=== PATIENT | male | born 1965 | race Caucasian/White ===

== ENCOUNTER 2017-07-09 00:01 | Observation (INO) | payer OTHER ==
[2017-07-09] VITALS (10 sets, daily range): BP systolic 117–185; BP diastolic 77–92; PULSE 56–69; TEMP 36.4–37.4; O2SAT 93–97; Ht 172.7 cm; Wt 121.3 kg
[~2017-07-09] VITALS: Ht 172.7 cm; Wt 121.3 kg
[2017-07-09] MEDS ORDERED: NITROGLYCERIN OINT 2% 1GM PACKET EXT ONE (00:15)
[2017-07-09 00:35] LABS: BASO % 0.6 %; BASO ABS # 0.05 K/uL (0-0.2); COMPLETE YES; HEMATOCRIT 48.2 % (42-52); IG% 0.2 %; LYMPH % 28.1 %; LYMPH ABS # 2.35 K/uL (1.2-3.4); MEAN CELL VOLUME 85.9 fL (80-100); MEAN CORPUSCULAR HEMOGLOBIN 30.3 pg (25-34); MEAN CORPUSCULAR HGB CONC 35.3 g/dl (32-36); MONO % 7.4 %; NEUT % 60.7 %; PLATELET COUNT 172 K/uL (130-400); RED BLOOD COUNT 5.61 M/uL (4.7-6.1); WHITE BLOOD COUNT 8.35 K/uL (4.8-10.8)
[2017-07-09 01:00] LABS: ALT/SGPT 32 U/L (12-78); AST/SGOT 22 U/L (15-37); BLOOD UREA NITROGEN 14 mg/dl (7-18); BUN/CREATININE RATIO 13.8 (10-20); CALCIUM 8.8 mg/dl (8.5-10.1); CARBON DIOXIDE 29 mmol/L (21-32); CHLORIDE 105 mmol/L (98-107); CREATININE 0.99 mg/dl (0.60-1.40); GLUCOSE 111 mg/dl (70-99); POTASSIUM 3.7 mmol/L (3.5-5.1); SODIUM 139 mmol/L (136-145)
[2017-07-09 01:05] LABS: ALKALINE PHOSPHATASE 135 U/L (45-117)
[2017-07-09] MEDS ORDERED: NITROGLYCERIN 0.4 MG SL PER TAB CHARGE SL PRN (02:15)
--- NOTE | 2017-07-09 04:25 | History and Physical ---
History & Physical Date & Time of Service: Jul 09, 2017 at 03:45 Chief Complaint: Chest Pain Primary Care Physician: No Doctor, Assigned History of Present Illness Source: patient, hospital records 51 yo Male with PMH of CAD s/p stent, MN, HTN, Dyslipidemia was brought to the ER for chest pain. Pt recently moved from [place] about 5 months ago. He has not been seeing a physician since then. Pt said that last night after worked while watching TV he developed a sharp pain in the left side of his chest, constant, grade 10/10, radiated to his left arm and left side of his neck. he also had diaphoresis and numbness and tingling in her left arm. Pt said that he took a nitro tab that help very little after couple minutes. Pt said that this chest pain was similar to the chest pain that he had 2 yrs ago when he had a heart attack where he had a cardiac cath done and stent placement. Pt said that he walked to his neighbor to drive him to the hospital. He said that the pain got worst and his neighbor call EMS. He received 4 aspirin tabs by the EMS team and nitro. Pt said that he has not been taking his medication because he runs out of them. He does not establish yet with a PCP and a cardiology. He does not remember all his meds except asa 81 mg, plavix 75 mg, lipitor 40mg. he could not recall his 2 BP meds. Currently pt said that he feels much better. Denies any chest pain, palpitation, dizziness and SOB currently. He continues smoking 1 PPD. Past Medical/Surgical History CAD s/p Stent Dyslipidemia HTN Tobacco abuse Social History Smoking Status: Current Every Day Smoker Alcohol Use: socially Drug Use: none Allergies Coded Allergies: No Known Allergies (Unverified , 07/09/17) Home Medications Scheduled Aspirin (Aspirin EC Low Dose), 1 TAB PO DAILY Atorvastatin (Atorvastatin Calcium), 40 MG PO DAILY Clopidogrel Bisulfate (Plavix), 1 TAB PO DAILY Review of Systems Constitutional: No fever, No chills, No weakness Eyes: No worsening of vision, No eye pain ENT: No hearing loss, No sore throat Respiratory: No cough, No sputum, No shortness of breath Cardiovascular: + chest pain, No claudication, No palpitations Abdomen: No pain, No nausea, No vomiting Musculoskeletal: No calf pain Genitourinary - Male: No dysuria, No urinary urgency Neurologic: No weakness, No balance problems Psychiatric: No substance abuse Endocrine: No fatigue Hematologic / Lymphatic: No abnormal bleeding/bruising, No clotting problems Integumentary: No rash, No itch Physical Exam Vital Signs Date Time Temp Pulse Resp B/P (MAP) Pulse Ox O2 Delivery O2 Flow Rate FiO2 07/09/17 03:00 36.7 69 16 185/92 (123) 96 Room Air 07/09/17 02:44 66 121/73 07/09/17 00:16 99 Room Air 07/09/17 00:12 71 07/09/17 00:04 36.8 75 16 165/102 Room Air 07/09/17 00:04 97 Room Air General Appearance: WD/WN, no apparent distress Head: normocephalic, atraumatic Eyes: PERRL, EOMI, sclerae normal ENT: hearing grossly normal Neck: supple, no JVD, trachea midline Respiratory/Chest: normal breath sounds, no respiratory distress, no accessory muscle use Cardiovascular: regular rate, rhythm, no JVD Abdomen/GI: normal bowel sounds, non tender Back: no CVA tenderness Extremities/Musculoskelatal: no calf tenderness, no pedal edema Neurologic/Psych: belt 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 nml as tested, no motor/sensory deficits, alert, oriented x 3 Skin: warm/dry, no rash Diagnostics Laboratory Results Results Past 24 Hours Test 07/09/17 00:25 07/09/17 00:32 Range/Units White Blood Count 8.35 4.8-10.8 K/uL Red Blood Count 5.61 4.7-6.1 M/uL Hemoglobin 17.0 14.0-18.0 g/dL Hematocrit 48.2 42-52 % Mean Corpuscular Volume 85.9 80-100 fL Mean Corpuscular Hemoglobin 30.3 25-34 pg Mean Corpuscular Hemoglobin Concent 35.3 32-36 g/dl Platelet Count 172 130-400 K/uL Mean Platelet Volume 10.0 7.4-10.4 fL Neutrophils (%) (Auto) 60.7 % Lymphocytes (%) (Auto) 28.1 % Monocytes (%) (Auto) 7.4 % Eosinophils (%) (Auto) 3.0 % Basophils (%) (Auto) 0.6 % Neutrophils # (Auto) 5.06 1.4-6.5 K/uL Lymphocytes # (Auto) 2.35 1.2-3.4 K/uL Monocytes # (Auto) 0.62 0.11-0.59 K/uL Eosinophils # (Auto) 0.25 0-0.5 K/uL Basophils # (Auto) 0.05 0-0.2 K/uL RDW Standard Deviation 41.3 36.4-46.3 fL RDW Coefficient of Variation 13.1 11.5-14.5 % Immature Granulocyte % (Auto) 0.2 % Immature Granulocyte # (Auto) 0.02 0.00-0.02 K/uL Sodium Level 139 136-145 mmol/L Potassium Level 3.7 3.5-5.1 mmol/L Chloride Level 105 98-107 mmol/L Carbon Dioxide Level 29 21-32 mmol/L Anion Gap 5.0 3-11 mmol/L Blood Urea Nitrogen 14 7-18 mg/dl Creatinine 0.99 0.60-1.40 mg/dl Est Creatinine Clear Calc Drug Dose 116.9 ml/min Estimated GFR () 103.2 Estimated GFR (Non- 89.1 BUN/Creatinine Ratio 13.8 10-20 Random Glucose 111 70-99 mg/dl Calcium Level 8.8 8.5-10.1 mg/dl Total Bilirubin 0.7 0.2-1 mg/dl Direct Bilirubin 0.2 0-0.2 mg/dl Aspartate Amino Transf (AST/SGOT) 22 15-37 U/L Alanine Aminotransferase (ALT/SGPT) 32 12-78 U/L Alkaline Phosphatase 135 45-117 U/L Troponin I < 0.015 0-0.045 ng/ml Total Protein 7.7 6.4-8.2 gm/dl Albumin 3.6 3.4-5.0 gm/dl Lipase 478 73-393 U/L Bedside Troponin I < 0.030 0-0.045 ng/ml No Infiltrate Impression Assessment and Plan Chest Pain Need to R/O ACS hx of CAD s/p stent, MN about 2 yrs ago, Tobacco abuse 1st set troponin negative EKG showed no ST changes Received 4 aspirin will follow CM, Echo in am repeat EKG in am Will restart asa, plavix and statin he is not sure if he was on BB Will add BB check lipid panel cardiology consult Keep NPO in am Continue monitor in telemetry HTN Will start on BB Continue monitor BP CAD s/p stent Continue plavix/asa/statin Elevated Lipase Denies any abdominal pain Stable Tobacco abuse Counseling on smoking cessation Nicotine patch DVT px on heparin subq CODE STATUS FULL CODE as per my discussion with pt. Level of Care Telemetry Resuscitation Status FULL RESUSCITATION VTE Prophylaxis VTE Risk Assessment Done? Y/N: Yes Risk Level: Moderate Given or contraindicated: Unfractionated heparin SQ
[2017-07-09] MEDS ORDERED: CLOP1TAB5 PO (04:28)
[2017-07-09] MEDS ORDERED: LPT40 PO (04:28)
[2017-07-09] MEDS ORDERED: ASPEC81 PO (04:28)
[2017-07-09] MEDS ORDERED: IV FLUIDS COMPLETED PRN (04:30)
[2017-07-09] MEDS ORDERED: SODIUM CHLORIDE 0.9% 1000ML 1,000 ML IV SCH (04:30)
--- NOTE | 2017-07-09 05:47 | EMERGENCY ROOM VISIT NOTE ---
History First contact with patient: 00:04 Chief Complaint: CARDIAC ASSESSMENT Stated Complaint: CHEST PAIN Nursing Triage Summary: substernal CP jaw pain cardiac history History of Present Illness The patient is a 51 year old male who presents to the Emergency Room with complaints of substernal chest pain that radiates to his jaw and down his left arm with diaphoresis for the past hour that is resolving after taking 2 nitroglycerins and aspirin. Patient has prior heart disease. He has a stent in his left main coronary. This is placed 3 years ago [place]. Patient continues to smoke. Her blood pressure and cholesterol. Patient describes the pain as pressure, ranging in severity was 8 out of 10 but now is 2 out of 10. EMS gave him a second dose of nitroglycerin and aspirin. He took one of his own nitroglycerin. Patient denies dyspnea, leg pain or swelling, recent travel , history of blood clots. Review of Systems See HPI for pertinent positives & negatives. A total of 10 systems reviewed and were otherwise negative. Past Medical/Surgical History Medical Problems: (1) Chest pain Coronary artery disease, hypertension, hyperlipidemia Social History Smoking Status: Current Every Day Smoker Drug Use: none Marital Status: Occupation Status: employed Current/Historical Medications Scheduled Aspirin (Aspirin EC Low Dose), 1 TAB PO DAILY Atorvastatin (Atorvastatin Calcium), 40 MG PO DAILY Clopidogrel Bisulfate (Plavix), 1 TAB PO DAILY Physical Exam Vital Signs Date Time Temp Pulse Resp B/P (MAP) Pulse Ox O2 Delivery O2 Flow Rate FiO2 07/09/17 00:16 99 Room Air 07/09/17 00:12 71 07/09/17 00:04 36.8 75 16 165/102 Room Air 07/09/17 00:04 97 Room Air Physical Exam VITALS: Vitals are noted on the nurse's note and reviewed by myself. Vital signs hypertension GENERAL: Pleasant male, in no acute distress, nondiaphoretic, well-developed well-nourished. SKIN: The skin was without rashes, erythema, edema, or bruising. There is no tenting of the skin. Capillary reflex less than 2 seconds. HEAD: Normocephalic atraumatic. EARS: External auditory canals clear, tympanic membranes pearly up without erythema or effusion bilaterally. EYES: Pupils equal round and reactive to light and accommodation. Conjunctivae without injection, sclerae without icterus. Extraocular movements intact. NOSE: Patent, turbinates without inflammation or discharge. MOUTH: Mucous membranes moist. Pharynx without erythema or exudate. Uvula midline. Airway patent. Tongue does not deviate. NECK: Supple without nuchal rigidity. No lymphadenopathy. No thyromegaly. Cervical spine is nontender. No JVD. HEART: Regular rate and rhythm without murmurs gallops or rubs. Chest nontender to palpation LUNGS: Clear to auscultation bilaterally without wheezes, rales or rhonchi. No dullness to percussion. No retractions or accessory muscle use. ABDOMEN: Positive bowel sounds x 4. Normal tympanic percussion. Soft, nontender, without masses or organomegaly. Quiles sign negative. No guarding or rebound tenderness. MUSCULOSKELETAL: No muscle atrophy, erythema, or edema noted. NEURO: Patient was alert and oriented to person place and time. Normal sensation to light and sharp touch. No focal neurological deficits. Medical Decision & Procedures Laboratory Results 07/09/17 00:25 Red Blood Count 5.61, Mean Corpuscular Volume 85.9, Mean Corpuscular Hemoglobin 30.3, Mean Corpuscular Hemoglobin Concent 35.3, Mean Platelet Volume 10.0, Neutrophils (%) (Auto) 60.7, Lymphocytes (%) (Auto) 28.1, Monocytes (%) (Auto) 7.4, Eosinophils (%) (Auto) 3.0, Basophils (%) (Auto) 0.6, Neutrophils # (Auto) 5.06, Lymphocytes # (Auto) 2.35, Monocytes # (Auto) 0.62, Eosinophils # (Auto) 0.25, Basophils # (Auto) 0.05 07/09/17 00:25 Test 07/09/17 00:25 07/09/17 00:32 White Blood Count 8.35 K/uL (4.8-10.8) Red Blood Count 5.61 M/uL (4.7-6.1) Hemoglobin 17.0 g/dL (14.0-18.0) Hematocrit 48.2 % (42-52) Mean Corpuscular Volume 85.9 fL (80-100) Mean Corpuscular Hemoglobin 30.3 pg (25-34) Mean Corpuscular Hemoglobin Concent 35.3 g/dl (32-36) Platelet Count 172 K/uL (130-400) Mean Platelet Volume 10.0 fL (7.4-10.4) Neutrophils (%) (Auto) 60.7 % Lymphocytes (%) (Auto) 28.1 % Monocytes (%) (Auto) 7.4 % Eosinophils (%) (Auto) 3.0 % Basophils (%) (Auto) 0.6 % Neutrophils # (Auto) 5.06 K/uL (1.4-6.5) Lymphocytes # (Auto) 2.35 K/uL (1.2-3.4) Monocytes # (Auto) 0.62 K/uL (0.11-0.59) Eosinophils # (Auto) 0.25 K/uL (0-0.5) Basophils # (Auto) 0.05 K/uL (0-0.2) RDW Standard Deviation 41.3 fL (36.4-46.3) RDW Coefficient of Variation 13.1 % (11.5-14.5) Immature Granulocyte % (Auto) 0.2 % Immature Granulocyte # (Auto) 0.02 K/uL (0.00-0.02) Anion Gap 5.0 mmol/L (3-11) Est Creatinine Clear Calc Drug Dose 116.9 ml/min Estimated GFR () 103.2 Estimated GFR (Non- 89.1 BUN/Creatinine Ratio 13.8 (10-20) Calcium Level 8.8 mg/dl (8.5-10.1) Total Bilirubin 0.7 mg/dl (0.2-1) Direct Bilirubin 0.2 mg/dl (0-0.2) Aspartate Amino Transf (AST/SGOT) 22 U/L (15-37) Alanine Aminotransferase (ALT/SGPT) 32 U/L (12-78) Alkaline Phosphatase 135 U/L (45-117) Troponin I < 0.015 ng/ml (0-0.045) Total Protein 7.7 gm/dl (6.4-8.2) Albumin 3.6 gm/dl (3.4-5.0) Lipase 478 U/L (73-393) Bedside Troponin I < 0.030 ng/ml (0-0.045) Medications Administered Medications (Trade) Dose Ordered Sig/Judith Route Start Time Stop Time Status Last Admin Dose Admin Nitroglycerin (Nitroglycerin 2% Oint) 1 inch NOW ONCE EXT 07/09/17 00:15 07/09/17 00:16 DC 07/09/17 00:19 1 [facility] ED Course Prior records/ancillary studies reviewed. Triage Nursing notes reviewed. The patient's history was concerning for chest pain. Differential diagnosis: Etiologies such as cardiac ischemia, aortic dissection, pulmonary embolism, pneumonia, pneumothorax, musculoskeletal, infections, pericarditis, myocarditis , esophageal rupture, gastrointestinal, as well as others were entertained. Physical examination: As above. ER treatment provided: Nitropaste On reassessment the patient felt better. Diagnostic interpretation by me: The electrocardiogram was negative for pathologic change. Normal sinus, normal intervals, Q wave in lead 3, no acute ST-T wave changes. Impression normal sinus rhythm interpreted by myself The labs revealed negative troponin. Stable H&H Imaging studies: Chest x-ray with no acute consolidation, pneumothorax or free air per my interpretation Consultation: A consultation was placed with the hospitalist, Dr Self. The case was discussed and diagnostics were reviewed. The patient was evaluated in the ER for further treatment. Exam and history seem concerning for chest pain could be related to his heart disease. He felt much better after the nitroglycerin. He will be evaluated by medicine. First troponin was negative. Normal EKG. Minimally elevated lipase. Exam and history do not seem consistent with pancreatitis. He was pain -free after nitroglycerin paste. By the evaluation outlined above emergent etiologies such as aortic dissection , pulmonary embolism, pneumonia, pneumothorax, infections, pericarditis, myocarditis, gastrointestinal, as well as others were deemed relatively unlikely. The pt informed about the findings as listed above. All questions were answered and pleased with the treatment. case reviewed with my Attending Medical Decision As above Blood Pressure Screening Patient's blood pressure: Elevated blood pressure Blood pressure disposition: Referred to PCP Impression Primary Impression: Precordial chest pain Departure Information Dispostion Still a Patient Condition FAIR Referrals No Doctor, Assigned (PCP) Forms IMPORTANT VISIT INFORMATION Patient Instructions My [facility]
[2017-07-09] MEDS ORDERED: HEPARIN SOD 5000 UNIT/0.5 ML CARP SQ SCH ×2 (06:00)
--- NOTE | 2017-07-09 06:45 | DIAGNOSTIC IMAGING REPORT ---
CHEST ONE VIEW PORTABLE CLINICAL HISTORY: CHEST PAIN pain COMPARISON STUDY: No previous studies for comparison. FINDINGS: The bones soft tissues and hemidiaphragms are normal. The cardiomediastinal silhouette is normal. The lungs are clear. The pulmonary vasculature is normal. IMPRESSION: Negative chest. The above report was generated using voice recognition software. It may contain grammatical, syntax or spelling errors. Electronically signed by: Sam Benz M.D. 07/09/2017 6:44 AM Dictated Date/Time: 07/09/2017 6:44 AM
[2017-07-09] MEDS ORDERED: HydrALAZINE HCL 20 MG/ML VIAL IV. PRN (07:00)
[2017-07-09 07:01] LABS: INR 1.1 (0.9-1.1); PROTHROMBIN TIME (PATIENT) 11.3 SECONDS (9.0-12.0)
[2017-07-09 07:16] LABS: CHOLESTEROL 170 mg/dl (0-200); CHOLESTEROL/HDL RATIO 3.5; HDL CHOLESTEROL 49 mg/dl; LDL CHOLESTEROL CALCULATED 100 mg/dl; TRIGLYCERIDES 107 mg/dl (0-150); VERY LOW DENSITY LIPOPROT CALC 21 mg/dl
[2017-07-09] MEDS ORDERED: ATROPINE SULFATE 0.1 MG/ML 5ML SYR ONE (08:19)
[2017-07-09] MEDS ORDERED: METOPROLOL TARTRATE 1 MG/ML VIAL ONE (08:19)
[2017-07-09] MEDS ORDERED: DOBUTamine HCL 12.5 MG/ML 20 ML VIAL ONE (08:19)
[2017-07-09] MEDS ORDERED: METOPROLOL TARTRATE 25 MG TAB PO SCH (09:00)
[2017-07-09] MEDS ORDERED: PERFLUTREN LIPID MICROSPHERE (DEFINITY) IV ONE (09:20)
--- NOTE | 2017-07-09 09:57 | DOBUTAMINE ECHO ---
*NOTICE TO RECEIVING DEMOCRAT AGENCY This information is strictly Confidential and protected under [place] law. [place] law prohibits you from making any further disclosure of this information unless further disclosure is expressly permitted by the written consent of the person to whom it pertains or is authorized by law. A general authorization for the release of medical or other information is not sufficient for this purpose. Hospital accepts no responsibility if the information is made available to any other person, INCLUDING THE PATIENT. Interpretation Summary * Name: JA JURADO Study Date: 07/09/2017 07:45 AM BP: 130/83 mmHg * Patient Location: [facility]\S\N287\S\2 HR: 63 * : 1965 (M/d/yyyy) Gender: Male Height: 68 in * Age: 51 yrs Ethnicity: CA Weight: 268 lb * Ordering Physician: Theo Self * Referring Physician: Self, Referred * Performed By: Delisa Campbell RCS * * Reason For Study: CHEST PAIN * BSA: 2.3 m2 * -- Conclusions -- * Nonischemic dobutamine stress echocardiogram. * No arrhythmias. * Normal HR and BP response to dobutamine infusion. * Chest pain was reproduced when probe was placed in his 5th intercostal space. * At rest, normal LV chamber size with moderate concentric LVH. * Normal LV systolic function, EF 55-60%. * No segmental left ventricular wall motion abnormalities are noted. * Grade II diastolic dysfunction. * No significant valvular pathology. Procedure Details * DOBUTAMINE ECHO, CPT#[id number] * ECHO COLOR FLOW, CPT #[id number] * ECHO DOPPLER, CPT #[id number] * The study was technically difficult with many images being suboptimal in quality. * A contrast injection of Definity was performed to improve assessment of LV function. * Contrast was injected into an intravenous site in the right arm. * One vial of Definity ultrasound contrast was diluted in normal saline to a total volume of 10 ml. A total of '2' ml of solution was administered during imaging. * Lot # [id number] of Definity utilized for procedure. * Expiration date AUG 16. * The attending nurse who injected the contrast agent was ARUN RANDOLPH, [facility], RN. Left Ventricle * The left ventricle is normal in size. * There is moderate concentric left ventricular hypertrophy. * Left ventricular systolic function is normal. * No segmental left ventricular wall motion abnormalities are noted. * Ejection Fraction = 55-60%. * Resting wall motion: Normal. Stress wall motion: Appropriate increase in Left ventricular systolic function and decrease in cavity size. No stress induced segmental wall motion abnormalities. Right Ventricle * The right ventricular cavity size is normal (basal dimension <4.2 cm in right ventricular apical 4-chamber view). * The right ventricular systolic function is normal as assessed by tricuspid annular plane systolic excursion (TAPSE) (normal >1.5 cm). Atria * The left atrial size is normal. * Right atrial size is normal. * No ASD detected; PFO is not assessed. Mitral Valve * The mitral valve is normal in structure and function. Tricuspid Valve * The tricuspid valve is normal in structure and function. Aortic Valve * The aortic valve is not well visualized. * No hemodynamically significant valvular aortic stenosis. * There is no significant aortic regurgitation. Pulmonic Valve * The pulmonary valve is not well seen, but the Doppler examination is normal without significant regurgitation or stenosis. Great Vessels * The aortic root is normal size. Pericardium * There is no pericardial effusion. Stress Parameters * Normal baseline electrocardiogram. * No arrhythmia were noted with stress. * There was no new ST segment depression. * The stress portion of this study was personally supervised by the undersigned interpreting physician. * Rest heart rate was '63' BPM. * Rest blood pressure was '130/83' * Maximum heart rate achieved was 164 bpm. * Maximum heart rate was 95 % of maximum age-predicted heart rate. * Maximum blood pressure was '170/30' * Maximum Dobutamine infusion rate was '40' mcg/kg/min. * A total of 1.0 mg of intravenous Atropine was used to supplement Dobutamine for heart rate response. * Dobutamine infusion was terminated due to achieving target heart rate * A total of 10 mg of IV Metoprolol was administered to reverse Dobutamine-induced tachycardia. Left Ventricular Diastolic Function * Diastolic dysfunction, Grade II (pseudonormalization pattern). MMode 2D Measurements and Calculations IVSd 1.6 cm IVSs 1.6 cm LVIDd 4.5 cm LVIDs 3.6 cm LVPWd 1.3 cm LVPWs 1.3 cm IVS/LVPW 1.2 FS 21.5 % EDV(Teich) 94.8 ml ESV(Teich) 53.3 ml EF(Teich) 43.8 % EDV(cubed) 94.1 ml ESV(cubed) 45.4 ml EF(cubed) 51.7 % % IVS thick 3.7 % % LVPW thick -1.87 % LV mass(C)d 262.8 grams LV mass(C)dI 113.5 grams/m\S\2 LV mass(C)s 188.9 grams LV mass(C)sI 81.6 grams/m\S\2 SV(Teich) 41.5 ml SI(Teich) 17.9 ml/m\S\2 SV(cubed) 48.6 ml SI(cubed) 21.0 ml/m\S\2 Ao root diam 2.9 cm Ao root area 6.6 cm\S\2 LA dimension 2.8 cm LA/Ao 0.99 LVAd ap4 36.0 cm\S\2 LVLd ap4 8.0 cm EDV(MOD-sp4) 131.3 ml EDV(sp4-el) 137.9 ml LVAs ap4 20.7 cm\S\2 LVLs ap4 6.3 cm ESV(MOD-sp4) 56.6 ml ESV(sp4-el) 57.9 ml EF(MOD-sp4) 56.9 % EF(sp4-el) 58.0 % SV(MOD-sp4) 74.6 ml SI(MOD-sp4) 32.2 ml/m\S\2 SV(sp4-el) 80.0 ml SI(sp4-el) 34.6 ml/m\S\2 Doppler Measurements and Calculations MV E max sudarshan 77.1 cm/sec MV A max sudarsahn 52.9 cm/sec MV E/A 1.5 MV P1/2t max sudarshan 87.3 cm/sec MV P1/2t 115.5 msec MVA(P1/2t) 1.9 cm\S\2 MV dec slope 221.3 cm/sec\S\2 MV dec time 0.34 sec Ao V2 max 129.0 cm/sec Ao max PG 6.7 mmHg Ao max PG (full) 3.4 mmHg LV V1 max PG 3.3 mmHg LV V1 max 90.7 cm/sec PA V2 max 114.0 cm/sec PA max PG 5.2 mmHg TR max sudarshan 241.4 cm/sec
[2017-07-09] MEDS ORDERED: KETOROLAC TROMETHAMINE 10 MG TAB PO STA (10:05)
[2017-07-09] MEDS: CLOPIDOGREL BISULFATE 75 MG TAB PO SCH (10:19)
[2017-07-09] MEDS: ASPIRIN 81 MG ECTAB PO SCH (10:19)
[2017-07-09] MEDS: METOPROLOL TARTRATE 25 MG TAB PO SCH ×2 (10:20→21:00)
[2017-07-09] MEDS: NICOTINE 21 MG/24 HR TDSY TD SCH (10:20)
[2017-07-09] MEDS: ATORVASTATIN 40 MG TAB PO SCH (10:20)
--- NOTE | 2017-07-09 10:45 | CARDIOLOGY CONSULTATION ---
DATE OF CONSULTATION: 07/09/2017 DATE OF CONSULTATION: 07/09/2017 CONSULTATION REQUESTED BY: Dr. Self. REASON FOR CONSULTATION: Chest pain. HISTORY OF PRESENT ILLNESS: Mr. Willis is a very pleasant 51-year-old gentleman who presented to [facility] Emergency Department on 07/08/2017 with a complaint of chest pain. The patient states that yesterday after he got home from work he was tired and sat down on his cough to watch television. Shortly after sitting down, he developed chest discomfort. He states it was a very intense pain ranked at 10/10 on the pain scale and described it as a pressure sensation that started in his left chest that radiated up into his shoulder and down into his left arm. It was associated with some shortness of breath. He states it was exactly similar to the pain he had prior to his previous stent so he became concerned and came into the Emergency Department via EMS. He states this pain was resolved after receiving medications in the ambulance, but he is not quite sure what they were. Upon presentation to the Emergency Department, his EKG and cardiac enzymes were unremarkable. He was admitted to telemetry overnight. He has had no further discomfort overnight. Of note, the patient is new to the area, he recently moved from [place]. He has not established with a primary care physician or a bleach chlorinator because the patient states he does not have insurance and has not really looked into seeing anybody yet. PAST SURGICAL HISTORY: 1. PCI to the maker according to the patient, no records available. 2. Peripheral stents to the right lower extremity. 3. Appendectomy. MEDICAL ILLNESSES: 1. Coronary artery disease. 2. Peripheral arterial disease. 3. Tobacco abuse. 4. Hypertension. 5. Dyslipidemia. 6. Obesity. FAMILY HISTORY: Noncontributory. SOCIAL HISTORY: The patient is a lifelong smoker and continues to smoke anywhere from 4 packs to 1.5 packs of cigarettes a day, drinks occasional alcohol. Denies any recreational drug use. He is . He has 1 grown daughter who is in good health. 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 He does not exercise outside of work. REVIEW OF SYSTEMS: As per HPI, all other review of systems reviewed and negative at this time. ALLERGIES: No known drug allergies. MEDICATIONS AN OUTPATIENT: The patient is not completely sure of his medications. He knows he takes aspirin 81 mg daily, Plavix 75 mg daily, atorvastatin 40 mg daily, but he states he also takes 2 blood pressure medications and he is not sure of the name. REVIEW OF SYSTEMS: As per HPI, all other review of systems reviewed and negative at this time. PHYSICAL EXAMINATION: VITALS: Temperature 36.4, pulse 65, respiratory rate 12, blood pressure 118/77. GENERAL: Awake, alert, oriented x3 in no acute distress. HEAD, EYES, EARS, NOSE, AND THROAT: Normocephalic, atraumatic. Pupils equal, round, and reactive to light and accommodation. Extraocular muscles intact. Anicteric sclerae. Moist mucous membranes. Poor dentition. NECK: No JVD, no bruit. CARDIOVASCULAR: Regular. Positive S4. Normal S1 and S2. No S3. No murmurs or rubs. PULMONARY: Clear to auscultation bilaterally. No rales, rhonchi, or wheezing. ABDOMEN: Bowel sounds x4, soft. No rebound, guarding, tenderness. No organomegaly. EXTREMITIES: No clubbing, cyanosis or edema. Barely palpable pedal pulse on the right, +1 pulse on the left. SKIN: Warm and dry. MUSCULOSKELETAL: Direct palpation of the left 5th intercostal space was able to reproduce his discomfort. TEST RESULTS: LABORATORY STUDIES OF SIGNIFICANCE: Troponin negative x2. A 12-lead EKG performed in the Emergency Department independently reviewed at this time shows normal sinus rhythm at 70 beats per minute, normal axis, normal intervals, no signs of active ischemia, normal study. A dobutamine stress echocardiogram was nonischemic, no arrhythmias, normal heart rate and blood pressure response to dobutamine. Chest pain was reproducible and probe was placed in the fifth intercostal space. IMPRESSION: 1. Musculoskeletal chest pain. 2. Coronary artery disease status post percutaneous coronary intervention to the maker. 3. Peripheral arterial disease. 4. Hypertension. 5. Ongoing tobacco abuse. 6. Obesity. RECOMMENDATIONS: It was my pleasure to see Mr. Willis in consultation today. Given the fact that his stress test was nonischemic, along with the fact the pain is reproducible no further cardiac testing or intervention is necessary at this time. I would recommend NSAIDs and local care for the musculoskeletal chest pain. Otherwise, he should continue his aspirin, Plavix and atorvastatin as well as his outpatient blood pressure medications. Given the fact that the patient does not have insurance I have recommended he be evaluated as an outpatient by [facility] for ongoing care and obviously the patient is welcome to follow with us in the cardiology clinic as well. It is okay to discharge him to home from a cardiac standpoint.
--- NOTE | 2017-07-09 20:25 | Progress Note ---
Medicine Progress Note Date & Time of Visit: Jul 09, 2017 at ~ 13:30 . Subjective No further chest pain. No shortness of breath. No other concerns. . Objective Last 8 Hrs Date Time Temp Pulse Resp B/P (MAP) Pulse Ox O2 Delivery O2 Flow Rate FiO2 07/09/17 20:11 96 Room Air 07/09/17 19:28 36.7 65 18 132/78 (96) 95 Room Air 07/09/17 16:27 37.4 56 20 132/80 (97) 97 Room Air 07/09/17 16:00 96 Room Air 07/09/17 12:41 36.4 68 18 117/81 (93) 95 Physical Exam: General- no distress Neck- no JVD Lungs- clear Heart- regular, no murmur or gallop Abdomen- normal bowel sounds, soft, nontender Extremities- no pretibial edema or calf tenderness Neuro- alert . Laboratory Results: Last 24 Hours Test 07/09/17 00:25 07/09/17 00:32 07/09/17 06:30 07/09/17 12:17 White Blood Count 8.35 K/uL Red Blood Count 5.61 M/uL Hemoglobin 17.0 g/dL Hematocrit 48.2 % Mean Corpuscular Volume 85.9 fL Mean Corpuscular Hemoglobin 30.3 pg Mean Corpuscular Hemoglobin Concent 35.3 g/dl Platelet Count 172 K/uL Mean Platelet Volume 10.0 fL Neutrophils (%) (Auto) 60.7 % Lymphocytes (%) (Auto) 28.1 % Monocytes (%) (Auto) 7.4 % Eosinophils (%) (Auto) 3.0 % Basophils (%) (Auto) 0.6 % Neutrophils # (Auto) 5.06 K/uL Lymphocytes # (Auto) 2.35 K/uL Monocytes # (Auto) 0.62 K/uL Eosinophils # (Auto) 0.25 K/uL Basophils # (Auto) 0.05 K/uL RDW Standard Deviation 41.3 fL RDW Coefficient of Variation 13.1 % Immature Granulocyte % (Auto) 0.2 % Immature Granulocyte # (Auto) 0.02 K/uL Sodium Level 139 mmol/L Potassium Level 3.7 mmol/L Chloride Level 105 mmol/L Carbon Dioxide Level 29 mmol/L Anion Gap 5.0 mmol/L Blood Urea Nitrogen 14 mg/dl Creatinine 0.99 mg/dl Est Creatinine Clear Calc Drug Dose 116.9 ml/min Estimated GFR () 103.2 Estimated GFR (Non- 89.1 BUN/Creatinine Ratio 13.8 Random Glucose 111 mg/dl Calcium Level 8.8 mg/dl Total Bilirubin 0.7 mg/dl Direct Bilirubin 0.2 mg/dl Aspartate Amino Transf (AST/SGOT) 22 U/L Alanine Aminotransferase (ALT/SGPT) 32 U/L Alkaline Phosphatase 135 U/L Troponin I < 0.015 ng/ml < 0.015 ng/ml 0.290 ng/ml Total Protein 7.7 gm/dl Albumin 3.6 gm/dl Lipase 478 U/L 131 U/L Bedside Troponin I < 0.030 ng/ml Prothrombin Time 11.3 SECONDS Prothromb Time International Ratio 1.1 Creatine Kinase MB 3.3 ng/ml 3.7 ng/ml Creatine Kinase MB Ratio Triglycerides Level 107 mg/dl Cholesterol Level 170 mg/dl HDL Cholesterol 49 mg/dl LDL Cholesterol, Calculated 100 mg/dl VLDL Cholesterol, Calculated 21 mg/dl Cholesterol/HDL Ratio 3.5 Assessment & Plan CAD / CHEST PAIN History of coronary artery disease, status post PCI. Recently moved to the area and -[id number]- ran out of his cardiac medications. [corrected FELY 07/11/17 @ 19:37] Subsequently developed chest pain, relieved by nitroglycerin. EKG showed sinus rhythm, no acute changes. Initial cardiac markers negative. Started on aspirin, clopidogrel, metoprolol, nitrates, statin. Resting echocardiogram showed normal left ventricular wall motion and function. No evidence of stress-induced ischemia with dobutamine infusion. First 2 troponins were normal. Serum troponin after -[id number]- -c-[id number]-t- dobutamine stress echo was elevated at 0.290. [corrected FELY 07/11/17 @ 19:37] Patient doing well clinically without chest pain. Suspect that troponin elevation secondary to dobutamine. Will continue to monitor overnight and check repeat cardiac markers. HYPERTENSION Continue metoprolol. DYSLIPIDEMIA Continue atorvastatin. VTE PROPHYLAXIS SQ enoxaparin. Ambulate. DISPOSITION Expected discharge to home. Will need to establish with Primary Care and Cardiology for outpatient follow- up. . Current Inpatient Medications: Current Inpatient Medications Medications (Trade) Dose Ordered Sig/Judith Route Start Time Stop Time Status Last Admin Dose Admin Nitroglycerin (Nitrostat Tab) 0.4 mg UD PRN SL 07/09/17 02:15 08/08/17 02:14 Miscellaneous (Iv Fluids Completed) 1 ea PRN PRN N/A 07/09/17 04:30 07/09/18 04:29 Aspirin (Ecotrin Tab) 81 mg DAILY PO 07/09/17 09:00 08/08/17 08:59 07/09/17 10:19 81 MG Atorvastatin Calcium (Lipitor Tab) 40 mg DAILY PO 07/09/17 09:00 08/08/17 08:59 07/09/17 10:20 40 MG Clopidogrel Bisulfate (plAVix TAB) 75 mg DAILY PO 07/09/17 09:00 08/08/17 08:59 07/09/17 10:19 75 MG Nicotine (Nicoderm Cq 21MG Patch) 1 patch QAM TD 07/09/17 09:00 08/08/17 08:59 07/09/17 10:20 1 PATCH Miscellaneous (Remove Nicoderm Patch) 1 ea HS N/A 07/09/17 21:00 08/08/17 20:59 Metoprolol Tartrate (Lopressor Tab) 25 mg BID PO 07/09/17 09:00 08/08/17 08:59 07/09/17 10:20 25 MG Hydralazine HCl (HydrALAZINE INJ) 10 mg Q6 PRN IV. 07/09/17 07:00 08/08/17 06:59
[2017-07-09] MEDS ORDERED: ENOXAPARIN 40 MG/0.4 ML SYR SQ SCH (21:00)
[2017-07-09 21:39] LABS: CKMB/CK RATIO 1.6 (0-3.0)
[2017-07-10 04:00] VITALS: BP 129/68; PULSE 62; TEMP 36.5; O2SAT 96
[2017-07-10 07:07] LABS: CKMB/CK RATIO 1.3 (0-3.0)
[2017-07-10 07:57] VITALS: BP 147/90; PULSE 77; TEMP 36.6; O2SAT 97
[2017-07-10 08:00] VITALS: O2SAT 97
[2017-07-10] MEDS: METOPROLOL TARTRATE 25 MG TAB PO SCH (08:23)
[2017-07-10] MEDS: ATORVASTATIN 40 MG TAB PO SCH (08:23)
[2017-07-10] MEDS: CLOPIDOGREL BISULFATE 75 MG TAB PO SCH (08:23)
[2017-07-10] MEDS: ASPIRIN 81 MG ECTAB PO SCH (08:23)
[2017-07-10] MEDS: NICOTINE 21 MG/24 HR TDSY TD SCH (08:24)
--- NOTE | 2017-07-10 09:45 | Progress Note ---
Medicine Progress Note Date & Time of Visit: Jul 10, 2017 at 09:45 . Subjective Doing well. No chest pain or SOB. Anxious to go home. . Objective Last 8 Hrs Date Time Temp Pulse Resp B/P (MAP) Pulse Ox O2 Delivery O2 Flow Rate FiO2 07/10/17 07:57 36.6 77 20 147/90 (109) 97 Room Air 07/10/17 04:00 Room Air 07/10/17 04:00 36.5 62 18 129/68 (88) 96 Room Air Physical Exam: General- no distress Neck- no JVD Lungs- clear Heart- regular, no murmur or gallop Abdomen- normal bowel sounds, soft, nontender Extremities- no pretibial edema or calf tenderness Neuro- alert . Laboratory Results: Last 24 Hours Test 07/09/17 12:17 07/09/17 20:31 07/10/17 06:14 Creatine Kinase MB 3.7 ng/ml 4.0 ng/ml 2.4 ng/ml Creatine Kinase MB Ratio 1.6 1.3 Troponin I 0.290 ng/ml 0.088 ng/ml 0.026 ng/ml Total Creatine Kinase 245 U/L 192 U/L Assessment & Plan CAD / CHEST PAIN History of coronary artery disease, status post PCI. Recently moved to the area and rebound of his cardiac medications. Subsequently developed chest pain, relieved by nitroglycerin. EKG showed sinus rhythm, no acute changes. Initial cardiac markers negative. Started on aspirin, clopidogrel, metoprolol, nitrates, statin. Resting echocardiogram showed normal left ventricular wall motion and function. No evidence of stress-induced ischemia with dobutamine infusion. First 2 troponins were normal. Serum troponin after dobutamine stress echo was elevated at 0.290. Patient was doing well clinically without chest pain. Suspect that troponin elevation secondary to dobutamine infusion, not acute myocardial injury. Cardiac markers followed and normalized. Discharge on aspirin, clopidogrel, metoprolol, atorvastatin, NTG PRN. HYPERTENSION Continue metoprolol. DYSLIPIDEMIA Continue atorvastatin. VTE PROPHYLAXIS SQ enoxaparin. Ambulating. DISPOSITION Discharge to home. Will need to establish with Primary Care and Cardiology for outpatient follow- up. . Current Inpatient Medications: Current Inpatient Medications Medications (Trade) Dose Ordered Sig/Judith Route Start Time Stop Time Status Last Admin Dose Admin Nitroglycerin (Nitrostat Tab) 0.4 mg UD PRN SL 07/09/17 02:15 08/08/17 02:14 Miscellaneous (Iv Fluids Completed) 1 ea PRN PRN N/A 07/09/17 04:30 07/09/18 04:29 Aspirin (Ecotrin Tab) 81 mg DAILY PO 07/09/17 09:00 08/08/17 08:59 07/10/17 08:23 81 MG Atorvastatin Calcium (Lipitor Tab) 40 mg DAILY PO 07/09/17 09:00 08/08/17 08:59 07/10/17 08:23 40 MG Clopidogrel Bisulfate (plAVix TAB) 75 mg DAILY PO 07/09/17 09:00 08/08/17 08:59 07/10/17 08:23 75 MG Nicotine (Nicoderm Cq 21MG Patch) 1 patch QAM TD 07/09/17 09:00 08/08/17 08:59 07/10/17 08:24 1 PATCH Miscellaneous (Remove Nicoderm Patch) 1 ea HS N/A 07/09/17 21:00 08/08/17 20:59 07/09/17 21:30 1 EA Metoprolol Tartrate (Lopressor Tab) 25 mg BID PO 07/09/17 09:00 08/08/17 08:59 07/10/17 08:23 25 MG Hydralazine HCl (HydrALAZINE INJ) 10 mg Q6 PRN IV. 07/09/17 07:00 08/08/17 06:59 Enoxaparin Sodium (Lovenox Inj) 40 mg HS SQ 07/09/17 21:00 08/08/17 20:59 07/09/17 22:34 40 MG
[2017-07-10] MEDS ORDERED: ASPEC81 PO (09:49)
[2017-07-10] MEDS ORDERED: CLOP1TAB5 PO (09:49)
[2017-07-10] MEDS ORDERED: LPT40 PO (09:49)
[2017-07-10] MEDS ORDERED: LPR25 PO (09:49)
[2017-07-10] MEDS ORDERED: NTRGSL/4 UT (09:49)
--- NOTE | 2017-07-10 09:59 | Discharge Instructions ---
Discharge Instructions Date of Service Jul 10, 2017. Admission Reason for Admission: chest pain . Discharge Discharge Diagnosis / Problem: chest pain Discharge Goals Goal(s): Improve disease control Activity Recommendations Activity Limitations: resume your previous activity . Instructions / Follow-Up Instructions / Follow-Up APPOINTMENTS: INTERNAL MEDICINE 07/20/2017 1:00 PM Lesley Nichole, DO Internal Medicine [facility] OTHER INSTRUCTIONS: Take heart medications as instructed. Prescriptions were sent to [facility] in [place]. It is very important that you take your medications regularly. Stopping them could cause a heart attack. Please ask Dr. Nichole to make a referral for you to see a [employer] retailer sales consultant. Please do not smoke. Talk to Dr. Nichole about it if you need help. Seek medical attention if you have: * chest pain or trouble breathing * any unanswered questions or concerns Call 911 if symptoms are severe. Call if you have any questions or problems. My cell # is [phone]. You can also reach a [facility] hospitalist on duty at [facility] 24 hours a day by calling [phone]. Please take good care of yourself. Suresh Johnson . Current Hospital Diet Patient's current hospital diet: AHA Diet (Heart Healthy) Discharge Diet Recommended Diet: AHA Diet (Heart Healthy) Pending Studies Studies pending at discharge: no Laboratory Results Lipid Panel Test 07/09/17 06:30 Range/Units Triglycerides Level 107 0-150 mg/dl Cholesterol Level 170 0-200 mg/dl HDL Cholesterol 49 mg/dl Cholesterol/HDL Ratio 3.5 LDL Cholesterol, Calculated 100 mg/dl Medical Emergencies . Who to Call and When: Medical Emergencies: If at any time you feel your situation is an emergency, please call 911 immediately. . Non-Emergent Contact Non-Emergency issues call your: Primary Care Provider, Precision Machining Instructor, Hospital Doctor . . "Provider Documentation" section prepared by Suresh Johnson. . VTE Core Measure Inpt VTE Proph given/why not?: Enoxaparin (Lovenox)SQ
[2017-07-10 10:36] VITALS: BP 147/90; PULSE 77; TEMP 36.6; O2SAT 97
--- NOTE | 2017-07-10 19:32 | Discharge Summary ---
Discharge Summary Date of Service Jul 10, 2017. Discharge Summary Admission Date: Jul 09, 2017 at 02:23 Discharge Date: Jul 10, 2017 Discharge Disposition: Home Principal Diagnosis: chest pain . Secondary Diagnoses/Problems: Chronic and Resolved Medical Problems: (1) Coronary artery disease Permanent Comment: s/p PCI Status: Chronic (2) Dyslipidemia Status: Chronic (3) Hypertension Status: Chronic (4) Peripheral vascular disease Status: Chronic Surgical Problems: (1) Status post appendectomy Status: Chronic (2) Status post coronary artery stent placement Status: Chronic . Medication Reconciliation New Medications: Nitroglycerin (Nitrostat) 0.4 Mg Tab 0.4 MG UT PRN, #25 TAB 5 Refills Dissolve 1 pill under tongue as needed for chest pain. May repeat dose in 5 minutes. Call 911 if no relief. Metoprolol Tartrate (Lopressor) 25 Mg Tab 25 MG PO BID, #60 TAB 5 Refills Changed Medications: Aspirin (Aspirin EC Low Dose) 81 Mg Ectab 81 MG PO DAILY, #30 TAB 5 Refills (Changed from: 1 TAB; Refills: ) Clopidogrel Bisulfate (Plavix) 75 Mg Tab 75 MG PO DAILY, #30 TAB 5 Refills (Changed from: 1 TAB; Refills: 1) Continued Medications: Atorvastatin (Atorvastatin Calcium) 40 Mg Tab 40 MG PO DAILY, #30 TAB 5 Refills (This prescription has been renewed) Admission Information HPI (per Admitting provider): 51 yo Male with PMH of CAD s/p stent, [place], HTN, Dyslipidemia was brought to the ER for chest pain. Pt recently moved from [place] about 5 months ago. He has not been seeing a physician since then. Pt said that last night after worked while watching TV he developed a sharp pain in the left side of his chest, constant, grade 10/10, radiated to his left arm and left side of his neck. he also had diaphoresis and numbness and tingling in her left arm. Pt said that he took a nitro tab that help very little after couple minutes. Pt said that this chest pain was similar to the chest pain that he had 2 yrs ago when he had a heart attack where he had a cardiac cath done and stent placement. Pt said that he walked to his neighbor to drive him to the hospital. He said that the pain got worst and his neighbor call EMS. He received 4 aspirin tabs by the EMS team and nitro. Pt said that he has not been taking his medication because he runs out of them. He does not establish yet with a PCP and a cardiology. He does not remember all his meds except asa 81 mg, plavix 75 mg, lipitor 40mg. he could not recall his 2 BP meds. Currently pt said that he feels much better. Denies any chest pain, palpitation, dizziness and SOB currently. He continues smoking 1 PPD. . Physical Exam (per Admitting): General Appearance: WD/WN, no apparent distress Head: normocephalic, atraumatic Eyes: PERRL, EOMI, sclerae normal ENT: hearing grossly normal Neck: supple, no JVD, trachea midline Respiratory/Chest: normal breath sounds, no respiratory distress, no accessory muscle use Cardiovascular: regular rate, rhythm, no JVD Abdomen/GI: normal bowel sounds, non tender Back: no CVA tenderness Extremities/Musculoskelatal: no calf tenderness, no pedal edema Neurologic/Psych: refurbish technician II-XII nml as tested, no motor/sensory deficits, alert , oriented x 3 Skin: warm/dry, no rash Hospital Course CORONARY ARTERY DISEASE / CHEST PAIN History of coronary artery disease, status post PCI. Recently moved to the area and ran out of his cardiac medications. Developed chest pain, relieved by nitroglycerin. EKG showed sinus rhythm, no acute changes. Initial cardiac markers negative. Restarted on aspirin, clopidogrel, metoprolol, nitrates, statin. Resting echocardiogram showed normal left ventricular wall motion and function. No evidence of stress-induced ischemia with dobutamine infusion. First 2 troponins were normal. Serum troponin after dobutamine stress echo was elevated at 0.290. Patient was doing well clinically without chest pain. Suspect that troponin elevation secondary to dobutamine infusion, not acute myocardial injury. Cardiac markers followed and normalized. Discharge on aspirin, clopidogrel, metoprolol, atorvastatin, NTG PRN. HYPERTENSION Continue metoprolol. DYSLIPIDEMIA Continue atorvastatin. SMOKING Smoking cessation discussed. VTE PROPHYLAXIS SQ enoxaparin. Ambulating. DISPOSITION Discharge to home. Internal Medicine follow-up with Dr. Nichole. Cardiology follow-up with Dr. Caceres. . Discharge Instructions Date of Service Jul 10, 2017. Admission Reason for Admission: chest pain . Discharge Discharge Diagnosis / Problem: chest pain Discharge Goals Goal(s): Improve disease control Activity Recommendations Activity Limitations: resume your previous activity . Instructions / Follow-Up Instructions / Follow-Up APPOINTMENTS: INTERNAL MEDICINE 07/20/2017 1:00 PM Lesley Nichole, DO Internal Medicine [facility] OTHER INSTRUCTIONS: Take heart medications as instructed. Prescriptions were sent to [facility] in [place]. It is very important that you take your medications regularly. Stopping them could cause a heart attack. Please ask Dr. Nichole to make a referral for you to see a natural resources specialist. Please do not smoke. Talk to Dr. Nichole about it if you need help. Seek medical attention if you have: * chest pain or trouble breathing * any unanswered questions or concerns Call 911 if symptoms are severe. Call if you have any questions or problems. My cell # is [phone]. You can also reach a [facility] hospitalist on duty at [facility] 24 hours a day by calling [phone]. Please take good care of yourself. Suresh Johnson . Current Hospital Diet Patient's current hospital diet: AHA Diet (Heart Healthy) Discharge Diet Recommended Diet: AHA Diet (Heart Healthy) Pending Studies Studies pending at discharge: no Laboratory Results Lipid Panel Test 07/09/17 06:30 Range/Units Triglycerides Level 107 0-150 mg/dl Cholesterol Level 170 0-200 mg/dl HDL Cholesterol 49 mg/dl Cholesterol/HDL Ratio 3.5 LDL Cholesterol, Calculated 100 mg/dl Medical Emergencies . Who to Call and When: Medical Emergencies: If at any time you feel your situation is an emergency, please call 911 immediately. . Non-Emergent Contact Non-Emergency issues call your: Primary Care Provider, Temp Recruiter, Hospital Doctor . . "Provider Documentation" section prepared by Suresh Johnson. . VTE Core Measure Inpt VTE Proph given/why not?: Enoxaparin (Lovenox)SQ . Additional Copies To Bret Caceres D.O.; Lesley Nichole D.O.
== END 2017-07-10 10:56 | disposition home or self-care (01) ==
LOC: C.EDC 00:04 → C.MED 02:23 → EDBEDREQ 02:26 → ENRESERV 02:32
PROVIDERS: ADMIT Internal Medicine; ATTEND Hospitalist
DX: R07.9 Chest pain, unspecified (principal); I25.10 Atherosclerotic heart disease of native coronary artery without angina pectoris; E78.5 Hyperlipidemia, unspecified; I10 Essential (primary) hypertension; I73.9 Peripheral vascular disease, unspecified; E66.9 Obesity, unspecified; I25.2 Old myocardial infarction; F17.200 Nicotine dependence, unspecified, uncomplicated; Z90.89 Acquired absence of other organs; Z79.82 Long term (current) use of aspirin; Z79.02 Long term (current) use of antithrombotics/antiplatelets; Z79.899 Other long term (current) drug therapy

== ENCOUNTER 2022-10-28 23:12 | Observation (INO) ==
[2022-10-28] MEDS ORDERED: SODIUM CHLORIDE 0.9% 1000ML 500 ML IV SCH (23:45)
--- NOTE | 2022-10-28 23:48 | Emergency Department Note ---
Impression & Plan Left-sided headache, Left facial swelling, Tobacco use, Morbid obesity, Chest pain, Elevated troponin ED Provider Note ED Provider Note NAME: JA JURADO AGE:57 SEX: Male : 1965 ARRIVES VIA: EMS INFORMANT: Patient ED PROVIDER(s): Shahida Vigil DO CHIEF COMPLAINT: Left facial swelling, left-sided headache HPI: This is a 57-year-old male brought in by EMS due to concern for left head/face pain, numbness, and swelling. Patient states symptoms began a few days ago and have been persistent. He states he now feels pain down into the left side of his neck and going down the proximal aspect of his left upper extremity. He denies fevers or chills, trouble breathing, trouble swallowing, or accompanying chest pain. Patient states he has had several prior heart attacks and has 1 stent although he feels this is different than the symptoms he had when he had his heart attack. Patient states he is not currently seeing any doctors including cardiology. He states he does take aspirin and Plavix daily. He denies any recent trauma or injury. He denies any chest pain, abdominal pain, nausea, vomiting, dizziness, vision changes, posterior neck or back pain. Patient states approximately 2 weeks ago he did have several dental extractions. He was not given a course of antibiotics following the extractions. Patient states several years ago he was told he may have had a prior stroke, however this was [place]. PAST MEDICAL HISTORY:See Below PAST SURGICAL HISTORY:See Below FAMILY HISTORY:See Below SOCIAL HISTORY:See Below HOME MEDICATIONS:See Below ALLERGIES:See Below VITALS:See Below PHYSICAL EXAMINATION: GENERAL: alert, well appearing, well nourished, no distress, non-toxic, BMI>45 HEAD: nc/at, no evidence of trauma, increased fullness noted along the left TMJ and left mandible, no palpable induration, no overlying erythema, no palpable mass EYE EXAM: normal conjunctiva, PERRL and EOM's grossly intact OROPHARYNX: no exudate, no erythema, lips, buccal mucosa, and tongue normal and mucous membranes are dry, poor dentition with few remaining pilot station teeth, recent extraction sites appear to be healing, no fluctuance or mass along the gumline's NECK: supple, no nuchal rigidity, no adenopathy, non-tender, no submandibular or submental fullness, FROM LUNGS: Clear to auscultation. Normal chest wall mechanics, no w/r/r HEART: no murmurs, S1 normal and S2 normal ABDOMEN: abdomen soft, non-tender, normo-active bowel sounds, no masses, no rebound or guarding. BACK: Back is symmetrical on inspection and there is no deformity, no midline tenderness, no CVA tenderness. SKIN: no rashes, petechiae, orbruising UPPER EXTREMITIES: upper extremities are grossly normal. FROM, nml pulses b/l. LOWER EXTREMITIES: No pitting edema. FROM, nml pulses b/l. NEURO EXAM: Normal sensorium, cranial nerves II-XII grossly intact, normal speech, no facial droop,nogross weakness of arms, no gross weakness of legs. Gross sensation intact. No ataxia. Vital Signs: reviewed and remarkable Differential Diagnosis: CVA, dental infection, dental abscess, osteomyelitis, Lemierre's syndrome, L udwig's angina, ACS, as well as others were considered MEDICAL DECISION MAKING: This is a 57-year-old male who presents emergency department due to concern for left face and neck pain, numbness, and swelling with radiation into the left shoulder and left upper extremity. Patient with recent dental extraction but also prior history of CO and CVA. Patient afebrile and hemodynamically stable on arrival. Labs drawn and sent, IV established, EKG performed and interpreted by me, patient monitored on telemetry. Chest x-ray performed and interpreted by me also. Patient sent for CT head and face due to concern for occult infection related to recent dental procedures and he was given empiric IV Unasyn. Patient's labs reassuring including no evidence of leukocytosis. CT head and face were read as unremarkable by overnight outside radiology. Patient found to have an elevated troponin although no active chest pain at that time. Given significant cardiac history of known CAD with prior stenting, I discussed all results with him as well as need for additional follow-up. Recent outside echo was reassuring with normal ejection fraction, no significant valvular ab normalities, normal aortic root. Patient remained hemodynamically stable in the emergency room, no ectopy or dysrhythmia noted. Patient in agreement with the plan after discussion of all results at bedside. Case discussed with hospitalist for additional evaluation and management. It is unclear if patient's atypical symptoms and will related to cardiac etiology, prior history of CVA, musculoskeletal pain, or other unclear etiology at this time. I do not suspect acute vascular emergency. Consultation(s): 0232: Discussed with Dr. Blackwell. ER Treatment Provided: See below Diagnostics Interpreted By Me: -ECG: Normal sinus rhythm at 70, normal axis, normal QRS and QTc, no acute ST/T wave changes -Cardiac Monitoring: An order was placed for continuous cardiac monitoring. The monitor shows a rate of [] with [] rhythm. -Laboratory studies: As stated above and show below. -Imaging studies: X-ray: Chest: A single view study of the chest was reviewed and was negative for cardiomegaly, focal infiltrate, effusion, pulmonary edema, or wide mediastinum. Triage Nursing Note Reviewed Prior/Outside Records Reviewed -recent outside echo report from a week ago Procedures: [] Critical Care: [] Past Med/Surg History Social History Smoking Status: Current every day smoker Tobacco Type: Cigarettes Do You Dip or Chew Tobacco: No; Hx Alcohol Use: Yes Alcohol type: beer Hx Substance Use: No Preferred Language: Mongolian Communication Ability Comment: Pt states he can only sign his name. 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 Beliefs That Will Affect Care: Spiritual Current Living Situation: Family Current Living Situation Comment: Brother and [id number] Feels Safe at Home: Yes Safety Concerns: Feels Safe At This Time Assistive Devices: None Allergies Allergies Allergy/AdvReac Type Severity Reaction Status Date / Time No Known Allergies Allergy Verified 10/28/22 23:50 Home Meds Home Medications Medication Instructions Recorded Confirmed aspirin 81 mg tablet,delayed 81 mg PO DAILY 03/03/22 10/28/22 release bupropion HCl 150 mg tablet,12 hr 150 mg PO DAILY 03/03/22 10/28/22 sustained-release clopidogrel 75 mg tablet 75 mg PO DAILY 03/03/22 10/28/22 lisinopril 20 mg tablet 20 mg PO DAILY 03/03/22 10/28/22 nitroglycerin 0.4 mg sublingual 0.4 mg sublingual DIRECTED PRN 03/03/22 10/28/22 tablet (Nitrostat) Chest Pain potassium chloride 20 mEq 20 meq PO BID 03/03/22 10/28/22 tablet,extended release(part/cryst) atorvastatin 40 mg tablet 40 mg PO DAILY 10/28/22 10/28/22 cyclobenzaprine 10 mg tablet 10 mg PO TID 10/28/22 10/28/22 furosemide 40 mg tablet (Lasix) 40 mg PO DAILY 10/29/22 10/29/22 Results & Data (ED) Vital Signs Vital Signs - 24 hr 10/28/22 23:39 10/29/22 02:01 10/29/22 03:18 Temperature 36.8 C Temperature Source Oral Pulse Rate 67 Pulse Rate [Apical] 61 61 Respiratory Rate 16 16 16 Blood Pressure 165/88 H Blood Pressure [Right Arm] 121/45 L 116/64 Blood Pressure Mean 113 Blood Pressure Mean [Right Arm] 70 81 Pulse Oximetry 95 95 95 Oxygen Delivery Method Room Air Room Air Room Air Sepsis Recent Fever Within 48 Hours No Sepsis New/Unexplained Change in Mental Status No Sepsis Action Taken by Nursing No Action Required 10/29/22 03:19 Temperature Temperature Source Pulse Rate 59 L Pulse Rate [Apical] Respiratory Rate Blood Pressure Blood Pressure [Right Arm] Blood Pressure Mean Blood Pressure Mean [Right Arm] Pulse Oximetry Oxygen Delivery Method Sepsis Recent Fever Within 48 Hours Sepsis New/Unexplained Change in Mental Status Sepsis Action Taken by Nursing Laboratory Data 10/28/22 23:30 10/28/22 23:30 Lab Results 10/28/22 10/28/22 10/28/22 Range/Units 23:30 23:30 23:30 WBC 8.08 (4.8-10.8) K/ul RBC 5.83 (4.70-6.10) M/uL Hgb 17.3 (14.0-18.0) g/dl Hct 49.1 (42.0-52.0) % MCV 84.2 (80.0-100.0) fL MCH 29.7 (25.0-34.0) pg MCHC 35.2 (32.0-36.0) g/dL RDW Std Deviation 38.8 (36.4-46.3) fL RDW Coeff of Bennie 12.7 (11.5-14.5) % Plt Count 173 (130-400) K/uL MPV 10.4 (9.4-12.4) fL Immature Gran % (Auto) 0.1 % Neut % (Auto) 57.1 % Lymph % (Auto) 31.2 % [place] % (Auto) 8.2 % Eos % (Auto) 2.7 % Baso % (Auto) 0.7 % Neut # (Auto) 4.61 (1.40-6.50) K/uL Lymph # (Auto) 2.52 (1.2-3.4) K/uL Thur[place] # (Auto) 0.66 H (0.11-0.59) K/uL Eos # (Auto) 0.22 (0-0.50) K/uL Baso # (Auto) 0.06 (0-0.2) K/uL Immature Gran # (Auto) 0.01 (0.01-0.20) K/uL PT 11.3 (9.0-12.0) Seconds INR 1.1 (0.9-1.1) Sodium 138 (136-145) mmol/L Potassium 4.0 (3.5-5.1) mmol/L Chloride 104 (98-107) mmol/L Carbon Dioxide 29 (21-32) mmol/L Anion Gap 5 (3-11) BUN 18 (6-23) mg/dl Creatinine 1.20 (0.6-1.4) mg/dl Est Cr Clr Drug Dosing 91.3 ml/min Est GFR ( Amer) 78.4 ml/min Est GFR (Non-Af Amer) 67.7 ml/min BUN/Creatinine Ratio 15.0 (10-20) Glucose 107 H (70-99(Fasting)) mg/dl Lactate (0.4-2.0) mmol/L Calcium 9.8 (8.5-10.1) mg/dl Magnesium 2.0 (1.7-2.4) mg/dl Total Bilirubin 0.6 (0.2-1.0) mg/dl Direct Bilirubin 0.1 (0-0.2) mg/dl AST 19 (13-39) U/L ALT 22 (7-52) U/L Alkaline Phosphatase 111 H (34-104) U/L Troponin I High Sens 74.5 H* (0-20) pg/ml Total Protein 7.8 (6.0-8.3) gm/dl Albumin 4.3 (3.4-5.0) gm/dl Procalcitonin (0-0.5) ng/ml Urine Color Urine Appearance (Clear) Urine pH (4.5-7.5) Ur Specific [place] (1.000-1.030) Urine Protein (Negative) Urine Glucose (UA) (Negative) Urine Ketones (Negative) Urine Blood (Negative) Urine Nitrite (Negative) Urine Bilirubin (Negative) Urine Urobilinogen (Negative) Ur Leukocyte Esterase (Negative) Urine WBC (Auto) (0-5) /hpf Urine RBC (Auto) (0-4) /hpf U Hyaline Cast (Auto) (0-5) /lpf U Epithel Cells (Auto) (0-5) /lpf Urine Bacteria (Auto) (Negative) Ethyl Alcohol mg/dL (<10.0) mg/dl SARS-CoV-2 (PCR) (Negative) Influenza Type A (PCR) (Neg) Influenza Type B (PCR) (Neg) RSV (RT-PCR) (Neg) 10/28/22 10/28/22 10/29/22 Range/Units 23:30 23:50 00:33 WBC (4.8-10.8) K/ul RBC (4.70-6.10) M/uL Hgb (14.0-18.0) g/dl Hct (42.0-52.0) % MCV (80.0-100.0) fL MCH (25.0-34.0) pg MCHC (32.0-36.0) g/dL RDW Std Deviation (36.4-46.3) fL RDW Coeff of Bennie (11.5-14.5) % Plt Count (130-400) K/uL MPV (9.4-12.4) fL Immature Gran % (Auto) % Neut % (Auto) % Lymph % (Auto) % [place] % (Auto) % Eos % (Auto) % Baso % (Auto) % Neut # (Auto) (1.40-6.50) K/uL Lymph # (Auto) (1.2-3.4) K/uL [place] # (Auto) (0.11-0.59) K/uL Eos # (Auto) (0-0.50) K/uL Baso # (Auto) (0-0.2) K/uL Immature Gran # (Auto) (0.01-0.20) K/uL PT (9.0-12.0) Seconds INR (0.9-1.1) Sodium (136-145) mmol/L Potassium (3.5-5.1) mmol/L Chloride (98-107) mmol/L Carbon Dioxide (21-32) mmol/L Anion Gap (3-11) BUN (6-23) mg/dl Creatinine (0.6-1.4) mg/dl Est Cr Clr Drug Dosing ml/min Est GFR ( Amer) ml/min Est GFR (Non-Af Amer) ml/min BUN/Creatinine Ratio (10-20) Glucose (70-99(Fasting)) mg/dl Lactate 1.5 (0.4-2.0) mmol/L Calcium (8.5-10.1) mg/dl Magnesium (1.7-2.4) mg/dl Total Bilirubin (0.2-1.0) mg/dl Direct Bilirubin (0-0.2) mg/dl AST (13-39) U/L ALT (7-52) U/L Alkaline Phosphatase (34-104) U/L Troponin I High Sens (0-20) pg/ml Total Protein (6.0-8.3) gm/dl Albumin (3.4-5.0) gm/dl Procalcitonin < 0.05 (0-0.5) ng/ml Urine Color Yellow Urine Appearance Clear (Clear) Urine pH 5.5 (4.5-7.5) Ur Specific [place] 1.016 (1.000-1.030) Urine Protein Negative (Negative) Urine Glucose (UA) Negative (Negative) Urine Ketones Trace H (Negative) Urine Blood Negative (Negative) Urine Nitrite Negative (Negative) Urine Bilirubin Negative (Negative) Urine Urobilinogen Negative (Negative) Ur Leukocyte Esterase Trace H (Negative) Urine WBC (Auto) 1-5 (0-5) /hpf Urine RBC (Auto) 0-4 (0-4) /hpf U Hyaline Cast (Auto) 1-5 (0-5) /lpf U Epithel Cells (Auto) 0-5 (0-5) /lpf Urine Bacteria (Auto) Negative (Negative) Ethyl Alcohol mg/dL (<10.0) mg/dl SARS-CoV-2 (PCR) (Negative) Influenza Type A (PCR) (Neg) Influenza Type B (PCR) (Neg) RSV (RT-PCR) (Neg) 10/29/22 10/29/22 Range/Units 00:33 02:25 WBC (4.8-10.8) K/ul RBC (4.70-6.10) M/uL Hgb (14.0-18.0) g/dl Hct (42.0-52.0) % MCV (80.0-100.0) fL MCH (25.0-34.0) pg MCHC (32.0-36.0) g/dL RDW Std Deviation (36.4-46.3) fL RDW Coeff of Bennie (11.5-14.5) % Plt Count (130-400) K/uL MPV (9.4-12.4) fL Immature Gran % (Auto) % Neut % (Auto) % Lymph % (Auto) % [place] % (Auto) % Eos % (Auto) % Baso % (Auto) % Neut # (Auto) (1.40-6.50) K/uL Lymph # (Auto) (1.2-3.4) K/uL [place] # (Auto) (0.11-0.59) K/uL Eos # (Auto) (0-0.50) K/uL Baso # (Auto) (0-0.2) K/uL Immature Gran # (Auto) (0.01-0.20) K/uL PT (9.0-12.0) Seconds INR (0.9-1.1) Sodium (136-145) mmol/L Potassium (3.5-5.1) mmol/L Chloride (98-107) mmol/L Carbon Dioxide (21-32) mmol/L Anion Gap (3-11) BUN (6-23) mg/dl Creatinine (0.6-1.4) mg/dl Est Cr Clr Drug Dosing ml/min Est GFR ( Amer) ml/min Est GFR (Non-Af Amer) ml/min BUN/Creatinine Ratio (10-20) Glucose (70-99(Fasting)) mg/dl Lactate (0.4-2.0) mmol/L Calcium (8.5-10.1) mg/dl Magnesium (1.7-2.4) mg/dl Total Bilirubin (0.2-1.0) mg/dl Direct Bilirubin (0-0.2) mg/dl AST (13-39) U/L ALT (7-52) U/L Alkaline Phosphatase (34-104) U/L Troponin I High Sens (0-20) pg/ml Total Protein (6.0-8.3) gm/dl Albumin (3.4-5.0) gm/dl Procalcitonin (0-0.5) ng/ml Urine Color Urine Appearance (Clear) Urine pH (4.5-7.5) Ur Specific [place] (1.000-1.030) Urine Protein (Negative) Urine Glucose (UA) (Negative) Urine Ketones (Negative) Urine Blood (Negative) Urine Nitrite (Negative) Urine Bilirubin (Negative) Urine Urobilinogen (Negative) Ur Leukocyte Esterase (Negative) Urine WBC (Auto) (0-5) /hpf Urine RBC (Auto) (0-4) /hpf U Hyaline Cast (Auto) (0-5) /lpf U Epithel Cells (Auto) (0-5) /lpf Urine Bacteria (Auto) (Negative) Ethyl Alcohol mg/dL < 10.0 (<10.0) mg/dl SARS-CoV-2 (PCR) NEGATIVE (Negative) Influenza Type A (PCR) Negative (Neg) Influenza Type B (PCR) Negative (Neg) RSV (RT-PCR) Negative (Neg) Administered Medications Acetaminophen (Acetaminophen 325 Mg Tab) 650 mg PO Q4H PRN PRN Reason: Pain or Fever Stop: 11/28/22 04:11 Last Admin: 10/29/22 19:27 Dose: 650 mg Documented By: LIZZETH Aspirin (Aspirin 81 Mg Ectab) 81 mg PO DAILY [facility] Stop: 11/28/22 08:59 Last Admin: 10/29/22 09:08 Dose: 81 mg Documented By: YOHANNES Atorvastatin Calcium (Atorvastatin 40 Mg Tab) 40 mg PO DAILY [facility] Stop: 11/28/22 08:59 Last Admin: 10/29/22 09:08 Dose: 40 mg Documented By: YOHANNES Bupropion HCl (Bupropion Sr 150 Mg Tabcr) 150 mg PO DAILY [facility] Stop: 11/28/22 08:59 Last Admin: 10/29/22 09:08 Dose: 150 mg Documented By: YOHANNES Clopidogrel Bisulfate (Clopidogrel Bisulfate 75 Mg Tab) 75 mg PO DAILY [facility] Stop: 11/28/22 08:59 Last Admin: 10/29/22 09:08 Dose: 75 mg Documented By: YOHANNES Cyclobenzaprine HCl (Cyclobenzaprine Hcl 10 Mg Tab) 10 mg PO TID [facility] Stop: 11/28/22 08:59 Last Admin: 10/29/22 20:01 Dose: 10 mg Documented By: Admin: 10/29/22 15:09 Dose: 10 mg Documented By: Admin: 10/29/22 09:09 Dose: 10 mg Documented By: YOHANNES Furosemide (Furosemide 40 Mg Tab) 40 mg PO DAILY [facility] Stop: 11/28/22 08:59 Last Admin: 10/29/22 09:09 Dose: 40 mg Documented By: YOHANNES Lisinopril (Lisinopril 20 Mg Tab) 20 mg PO DAILY [facility] Stop: 11/28/22 08:59 Last Admin: 10/29/22 09:09 Dose: 20 mg Documented By: YOHANNES Miscellaneous (Remove Nicoderm Patch) 1 each N/A DAILY@0859 [facility] Stop: 11/28/22 08:58 Last Admin: 10/29/22 09:22 Dose: Not Given Documented By: YOHANNES Nicotine (Nicotine 21 Mg/24 Hr Tdsy) 21 mg TD QAM [facility] Stop: 11/28/22 08:59 Last Admin: 10/29/22 09:07 Dose: 21 mg Documented By: YOHANNES Potassium Chloride (Potassium Chloride Crtab 20 Meq Tabcr) 20 meq PO BID [facility] Stop: 11/28/22 08:59 Last Admin: 10/29/22 20:02 Dose: 20 meq Documented By: Admin: 10/29/22 09:09 Dose: 20 meq Documented By: YOHANNES Discontinued Medications Gadobutrol (Gadobutrol 65ml Vial) 13.2 ml IV ONCE ONE Stop: 10/29/22 07:41 Last Admin: 10/29/22 07:40 Dose: 13.2 ml Documented By: SCOTT Sodium Chloride (Nss 1000ml) 500 mls @ 999 mls/hr IV .Q31M [facility] Stop: 10/29/22 00:15 Last Infusion: 10/29/22 00:37 Dose: 0 mls/hr Documented By: Admin: 10/29/22 00:00 Dose: 999 mls/hr Documented By: PADMINI Ampicillin Sodium/Sulbactam Sodium 3,000 mg/ Sodium Chloride 108 mls @ 200 mls/hr IV NOW STA; Protocol Stop: 10/29/22 00:35 Last Infusion: 10/29/22 01:25 Dose: 0 mls/hr Documented By: Admin: 10/29/22 00:37 Dose: 200 mls/hr Documented By: PADMINI Ioversol (Optiray 350 100ml) 100 ml IV ONCE ONE Stop: 10/29/22 01:25 Last Admin: 10/29/22 01:24 Dose: 86 ml Documented By: PATRIZIA Imaging Data Radiologist's Impression: CT maxillofacial with intravenous contrast Clinical history: Reason for exam: Left facial swelling, dental procedure. Technique: Axial computed tomography images of the face with intravenous contrast. CTDI is there is soft tissue swelling associated with the left face without a focal fluid collection identified. Contrast: Contrast must be dictated Comparison: No relevant prior studies available. Findings: Bones/joints: No acute fracture. Soft tissues: There is soft tissue swelling associated with the left face without a focal fluid collection. Orbits: Unremarkable. Sinuses: There is scattered sinus mucosal disease. Scattered regions of sinus mucosal thickening. 12.85 mGy and DLP is 948.34 mGy-cm. No air-fluid levels. Impression: Soft tissue swelling over the left face without a focal fluid collection identified. Radiologist: Thomas Manning MD CT head without intravenous contrast Clinical history: Reason for exam: Left-sided headache Technique: Axial computed tomography images of the head/brain without intravenous contrast. CTDI is 38.97 mGY and DLP is 948.34 mGY-cm. Comparison: No prior relevant studies available. Findings: Brain: There is gliosis and encephalomalacia in the right occipital lobe (image 13 series 2), the appearance is suggestive of old infarct. The cerebral and cerebellar sulci are mildly prominent consistent with mild brain atrophy. There are a few areas of decreased attenuation in the deep cerebral white matter consistent with mild small vessel ischemic/degenerative changes. No hemorrhage. Ventricles: Unremarkable. No ventriculomegaly. Bones/joints: Unremarkable. No acute fracture. Soft tissues: Unremarkable. Vasculature: Atherosclerotic disease. Sinuses: Unremarkable as visualized. No acute sinusitis. Mastoid air cells: Unremarkable as visualized. No mastoid effusion. Impression: No acute findings in the head/brain Radiologist: Thomas Manning MD Discharge Plan Visit Data Chief Complaint: Facial Injury/Pain Stated Complaint: L Sided Facial Pain ED Provider: Shahida Vigil Discharge Problem: Left-sided headache, Left facial swelling, Tobacco use, Morbid obesity, Chest pain, Elevated troponin Patient Disposition: Admitted As Inpatient Discharge Instructions Interventions: ED Discharge Assessment Last Done: 10/29/22 04:12
[2022-10-28 23:52] LABS: Basophils # (auto) 0.06 K/uL (0-0.2); Basophils % (auto) 0.7 %; Eosinophils # (auto) 0.22 K/uL (0-0.50); Eosinophils % (auto) 2.7 %; Hematocrit (blood only) 49.1 % (42.0-52.0); Hemoglobin 17.3 g/dl (14.0-18.0); Immature Granulocytes # (auto) 0.01 K/uL (0.01-0.20); Immature Granulocytes % (auto) 0.1 %; Lymphocytes # (auto) 2.52 K/uL (1.2-3.4); Lymphocytes % (auto) 31.2 %; Mean Corpuscular Hemoglobin 29.7 pg (25.0-34.0); Mean Corpuscular Hgb Conc 35.2 g/dL (32.0-36.0); Mean Corpuscular Volume 84.2 fL (80.0-100.0); Mean Platelet Volume 10.4 fL (9.4-12.4); Monocytes # (auto) 0.66 K/uL (0.11-0.59); Monocytes % (auto) 8.2 %; Neutrophils # (auto) 4.61 K/uL (1.40-6.50); Neutrophils % (auto) 57.1 %; Platelet Count 173 K/uL (130-400); RDW Coefficient of Variation 12.7 % (11.5-14.5); RDW Standard Deviation 38.8 fL (36.4-46.3); Red Blood Count 5.83 M/uL (4.70-6.10); White Blood Count 8.08 K/ul (4.8-10.8)
[2022-10-29 00:02] LABS: INR 1.1 (0.9-1.1); Prothrombin Time 11.3 Seconds (9.0-12.0)
[2022-10-29] MEDS ORDERED: AMPICILLIN/SULBACTAM SOD 3,000 MG in 0.9 % SODIUM CHLORIDE 100 ML IV STA (00:03)
[2022-10-29 00:16] LABS: Albumin Level 4.3 gm/dl (3.4-5.0); Bilirubin Direct 0.1 mg/dl (0-0.2); Bilirubin,Total 0.6 mg/dl (0.2-1.0); Calcium 9.8 mg/dl (8.5-10.1)
[2022-10-29 00:19] LABS: Appearance Urine Clear (Clear); Bacteria Urine Automated Negative (Negative); Bilirubin Urine Negative (Negative); Blood Urine Negative (Negative); Color Urine Yellow; Epithelial Cell Urine Auto 0-5 /lpf (0-5); Glucose Urine UA Negative (Negative); Ketones Urine Trace (Negative); Leukocyte Esterase Urine Trace (Negative); Nitrite Urine Negative (Negative); Protein Urine Negative (Negative); RBC Urine Automated 0-4 /hpf (0-4); Specific Gravity Urine 1.016 (1.000-1.030); Urobilinogen Urine Negative (Negative); pH Urine 5.5 (4.5-7.5)
[2022-10-29 00:57] LABS: Total Protein 7.8 gm/dl (6.0-8.3)
[2022-10-29 01:00] LABS: Troponin I High Sensitivity 74.5 pg/ml (0-20)
[2022-10-29 01:02] LABS: Creatinine Clr Calc Pharmacy 91.3 ml/min; Est GFR (African American) 78.4 ml/min; Est GFR (Non-African American) 67.7 ml/min
[2022-10-29] MEDS ORDERED: OPTIRAY 350 100ml IV ONE (01:24)
[2022-10-29 03:25] LABS: Influenza A virus by PCR Negative (Neg); Influenza B virus by PCR Negative (Neg); RSV by PCR Negative (Neg); SARS CoV2 RNA(COVID-19) Ceph NEGATIVE (Negative)
[2022-10-29] MEDS ORDERED: NITROGLYCERIN SL 0.4 MG/TAB TAB SL PRN (04:12)
[2022-10-29] MEDS ORDERED: ACETAMINOPHEN 325 MG TAB PO PRN (04:12)
[2022-10-29] MEDS ORDERED: POLYETHYLENE (MIRALAX) 17 GM PACK PO PRN (04:12)
--- NOTE | 2022-10-29 05:09 | History and Physical Report ---
DATE OF ADMISSION: 10/28/2022. CHIEF COMPLAINT: Left-sided headache with left arm ache and numbness. HISTORY OF PRESENT ILLNESS: A 57-year-old male with past medical history significant for hypertension, hyperlipidemia, history of CVA, history of CAD, status post stents; history of peripheral vascular disease, obesity, ongoing tobacco abuse, presents with left-sided headache extending from his left side of the head to the face and extending up to the forearm, starting about 3-4 days ago. It is on and off. Sometimes while resting also pain comes on, sometimes he is taking nitro and with resting it subsides on its own a couple of hours later. He says it is not getting better, that is why he came to the ER. He also had some tooth extraction on the lower front teeth and upper right tooth a couple of days ago, but the patient says this current symptoms of left-sided headache and forearm pain started prior to extraction of the teeth. He has had no pain or tenderness inside his mouth. He is eating and swallowing okay. Denies any dizziness, no blurred visions, no cough, no fevers, no shortness of breath, no nausea, no abdominal pain. Normal bowel and bladder movements. He is ambulating okay in the room. He states he had cardiac stents and stents in his right leg 10 years ago and he says couple of years ago had stroke and at that time, the symptoms were similar to today's symptoms. He is resting comfortably and hemodynamically stable. ALLERGIES: No known drug allergies. PAST MEDICAL HISTORY: As mentioned above. PAST SURGICAL HISTORY: Appendectomy and cardiac catheterization and stent placements. MEDICATIONS: The patient is on aspirin 81 mg p.o. daily, atorvastatin 40 mg p.o. daily, bupropion 150 mg p.o. daily, Plavix 75 mg p.o. daily,cyclobenzaprine 10 mg p.o. t.i.d., Lasix 40 mg p.o. daily, lisinopril 20 mg p.o. daily, nitroglycerin 0.4 mg sublingual p.r.n., potassium chloride 20 mEq p.o. b.i.d. FAMILY HISTORY: Significant for father and mother both have heart disease. SOCIAL HISTORY: Smokes 1-1/2 pack of cigarettes daily. Alcohol, rarely. REVIEW OF SYSTEMS: As per HPI. Rest of review of systems is negative. PHYSICAL EXAMINATION: GENERAL: The patient is morbidly obese, not in acute distress. VITAL SIGNS: Temperature 36.8, pulse 59, respiratory rate 16, blood pressure 116/64, oxygen 95% on room air. HEENT: Pupils equal, round and reactive to light. Absent right side upper teeth and lower front teeth. No obvious erythema or swelling seen in the mouth. NECK: No JVD. No neck masses. CARDIOVASCULAR: S1 and S2 heard. Regular rate and rhythm. No murmur, no gallop. RESPIRATORY SYSTEM: Normal AP diameter. No accessory muscle use. No wheezing or crackles. ABDOMEN: Soft, bowel sounds present, nontender, no distention. CENTRAL NERVOUS SYSTEM: Alert and oriented. Speech is clear. No facial droop. Insight is okay. Obeying simple commands. Power 5/5 in all extremities. Sensation is intact. Position sense intact. No pronator drift. Coordination of movements normal. EXTREMITIES: No edema, no erythema. LABORATORY DATA: WBC 8.08, hemoglobin 17.3, hematocrit 49.1, platelets 173. PT 11.3, INR 1.1. Sodium 138, potassium 4, chloride 104, bicarbonate 29, BUN 18, creatinine 1.2, serum glucose 107. Lactate 1.5, calcium 9.8, magnesium 2, total bilirubin 0.6, direct bilirubin 0.1, AST 19, ALT 22, alkaline phosphatase 111. Troponin I high sensitivity 74.5. Procalcitonin less than 0.05. Urinalysis negative. Ethyl alcohol less than 10. SARS-CoV-2 PCR negative. Influenza A and B PCR negative. RSV PCR negative. Chest x-ray, preliminary report, no acute findings. CT of the head, preliminary report, no acute findings in the head or brain, old infarct in the right occipital lobe. Facial CT preliminary report , soft tissue swelling over the left face without focal fluid collection identified. EKG: Normal sinus rhythm at a rate of 70, no significant change was found. ASSESSMENT AND PLAN: This is a 57-year-old male who presents with a left-sided headache and left forearm pain. 1. Left-sided headache and also extending up to his left upper extremity up to the elbow region. The patient states he had similar episode when he had a stroke a couple of years ago. Initial CT of the head, preliminary report is okay. The patient also has history of cardiac disease and stent placement over 10 years ago. The patient recently had an echo _ on 10/19/2022. Echo showed normal EF, normal left ventricular, normal right ventricular function. We will rule out ACS. We will do serial cardiac enzymes, echo and stress test as per Cardiology. We will keep him n.p.o. until seen by Cardiology. Monitor in the tele floor. He has mild elevation of troponin. Follow serial cardiac enzymes. 2. History of cerebrovascular accident: The patient says he had similar symptoms when he had CVA. CT of the head is okay. We will get MRI while the patient is in the hospital. 3. Recent dental extraction: Current symptoms started prior to dental extraction and there is no obvious soft tissue swelling at the extraction site. 4. History of coronary artery disease, status post stents 10 years ago as per patient, continue his aspirin, Plavix, statin. 5. History of peripheral vascular disease: On aspirin, Plavix and statin. 6. History of cerebrovascular accident: On aspirin, statin, Plavix. 7. History of hypertension: On lisinopril and Lasix. We will monitor the blood pressure. 8. Ongoing tobacco abuse: Needs counseling. 9. Morbid obesity: Needs counseling and also needs sleep study as an outpatient. 10. Deep venous thrombosis prophylaxis: Place on SCDs for now. DISPOSITION: Observation in tele floor. Level 1 full code. Expect to discharge home and follow with family doctor. Job ID: [id number] [facility]
[2022-10-29 06:05] LABS: Basophils # (auto) 0.05 K/uL (0-0.2); Basophils % (auto) 0.7 %; Eosinophils # (auto) 0.24 K/uL (0-0.50); Eosinophils % (auto) 3.4 %; Hematocrit (blood only) 47.8 % (42.0-52.0); Hemoglobin 16.6 g/dl (14.0-18.0); Immature Granulocytes # (auto) 0.01 K/uL (0.01-0.20); Immature Granulocytes % (auto) 0.1 %; Lymphocytes # (auto) 2.89 K/uL (1.2-3.4); Lymphocytes % (auto) 40.8 %; Mean Corpuscular Hemoglobin 29.6 pg (25.0-34.0); Mean Corpuscular Hgb Conc 34.7 g/dL (32.0-36.0); Mean Corpuscular Volume 85.4 fL (80.0-100.0); Mean Platelet Volume 10.4 fL (9.4-12.4); Monocytes # (auto) 0.61 K/uL (0.11-0.59); Monocytes % (auto) 8.6 %; Neutrophils # (auto) 3.29 K/uL (1.40-6.50); Neutrophils % (auto) 46.4 %; Platelet Count 158 K/uL (130-400); RDW Coefficient of Variation 12.6 % (11.5-14.5); RDW Standard Deviation 38.9 fL (36.4-46.3); White Blood Count 7.09 K/ul (4.8-10.8)
[2022-10-29 06:13] LABS: BUN Creatinine Ratio 18.1 (10-20); Calcium 9.1 mg/dl (8.5-10.1); Creatinine Clr Calc Pharmacy 116.6 ml/min; Est GFR (African American) 105.4 ml/min; Est GFR (Non-African American) 90.9 ml/min
[2022-10-29 07:10] LABS: Troponin I High Sensitivity 114.6 pg/ml (0-20)
--- NOTE | 2022-10-29 07:32 | XRay Report ---
XR chest 1V portable HISTORY: 57 years-old Male Sepsis acute sepsis COMPARISON: Chest radiograph 07/09/2017 TECHNIQUE: AP view of the chest FINDINGS: Cardiac silhouette is enlarged. Pulmonary vascular congestion with interstitial coarsening. No pneumo thorax. Mild blunting of the costophrenic angles. No large pleural effusion or lobar airspace consoli dation. Bones appear grossly intact. IMPRESSION: Cardiomegaly with pulmonary vascular congestion and possible developing pulmonary edema. ACT 112: Negative or not required by law. The above report was generated using voice recognition software. It may contain grammatical, syntax o r spelling errors. Electronically signed by: Mateo Trent M.D. 10/29/2022 7:30 AM
[2022-10-29] MEDS ORDERED: GADOBUTROL 65ML VIAL IV ONE (07:40)
--- NOTE | 2022-10-29 08:09 | Magnetic Resonance Report ---
MR brain wo/w con HISTORY: 57 years-old Male stroke like symptoms. hx of cva acute strokelike symptoms COMPARISON: Head CT of same day TECHNIQUE: Multiplanar multisequence MRI of the brain was obtained both with and without the use of 1 3.2 cc Gadavist FINDINGS: No restricted diffusion. Degenerative changes of the imaged cervical spine. The study is mildly motio n degraded. No acute intracranial hemorrhage, midline shift, abnormal extra-axial collection, hydrocephalus or in tracranial mass. Encephalomalacia and gliosis within the right occipital lobe. Involutional changes w ith moderate T2/FLAIR hyperintense foci throughout the white matter. Cerebral venous sinuses and rylan r arterial flow voids appear patent. Skull, orbits and soft tissues are within normal limits. Trace m astoid effusions. Mild mucosal thickening of the paranasal sinuses. No abnormal enhancement identifie d. IMPRESSION: 1. No acute intracranial abnormality. No acute or subacute infarct. 2. Involutional changes with moderate T2/FLAIR hyperintense foci throughout the white matter suggesti ve of age advanced chronic microvascular ischemic disease. 3. Chronic right occipital infarct. 4. No abnormal enhancement. ACT 112: Negative or not required by law. The above report was generated using voice recognition software. It may contain grammatical, syntax o r spelling errors. Electronically signed by: Mateo Trent M.D. 10/29/2022 8:08 AM
--- NOTE | 2022-10-29 08:53 | Cardiology Consultation ---
Date of Consultation October 29, 2022 Assessment & Plan (1) Left-sided headache: (2) Left facial swelling: (3) Coronary artery disease: (4) Peripheral vascular disease: (5) Hypertension: (6) History of CVA (cerebrovascular accident): Plan Patient admitted for left sided facial pain/numbness radiating down left arm. Concerning symptoms for possible CVA/TIA CT of head unremarkable. Brain MRI revealed old lacunar infarct, consistent with history but no acute findings. No neck imaging - Carotid duplex ordered. Continue ASA and Plavix. BP initially elevated, but trending down today. Continue furosemide, lisinopril Continue statin. Update echo with bubble study given minimally elevated troponin and history of possible CVA. No prior knowledge of afib per records, but may benefit from outpatient cafeteria monitor. Could also consider outpatient stress test given history of CAD and stents. Case discussed with Dr. Christianson. Further recommendations pending review of above tests. Supervising Physician Co-Signing Physician Notes I have reviewed the advance practitioner documentation and agree. I saw and evaluated the patient on the date of service referenced in the note and have performed a medically appropriate history and or exam. Agree with the plan as outlined above. History of Present Illness Reason for Consultation: Left arm pain; facial tingling; headache; history of CAD Requesting Physician: Dr. Blackwell Attending Physician: Dr. Christianson History of Present Illness Patient is a 57 year old male with complex history. He does not follow with cardiology or vascular surgery as outpatient. he is a rather poor historian. He apparently was hospitalized several years ago in [place] and had a stroke. He does not recall cause of stroke. He reports compliance with meds, which includes dual antiplatelet therapy. He follows with primary care through [facility]. Patient developed left sided facial pain/numbness/tingling, radiating down to hi s left arm yesterday. He reports symptoms were similar to past stroke and he came to the ER for evaluation. He underwent head CT which was unremarkable. Brain MRI demonstrated prior old lacunar infarct without acute findings. BP was initially elevated but trending down at time of consult. EKG demonstrating NSR without acute changes and underlying artifact noted. HS troponin minimally elevated on arrival at 75, increasing to 114 this morning. repeat pending He denies recent chest pain or dyspnea. No need for SL nitro. At time of consult, patient feeling ok other than left sided head and facial pain. History includes: 1. Coronary artery disease with prior coronary stents done in [place] 2. Peripheral vascular disease with prior stents in the lower extremities also done in [place] 3. Hypertension 4. Dyslipidemia 5. Cigarette smoking 6. Obesity 7. history of CVA in 2018 while in [place] Allergies Allergy/AdvReac Type Severity Reaction Status Date / Time No Known Allergies Allergy Verified 10/28/22 23:50 Home Medications Medication Instructions Recorded Confirmed Type aspirin 81 mg tablet,delayed 81 mg PO DAILY 03/03/22 10/28/22 History release bupropion HCl 150 mg tablet,12 hr 150 mg PO DAILY 03/03/22 10/28/22 History sustained-release clopidogrel 75 mg tablet 75 mg PO DAILY 03/03/22 10/28/22 History lisinopril 20 mg tablet 20 mg PO DAILY 03/03/22 10/28/22 History nitroglycerin 0.4 mg sublingual 0.4 mg sublingual DIRECTED PRN 03/03/22 10/28/22 History tablet (Nitrostat) Chest Pain potassium chloride 20 mEq 20 meq PO BID 03/03/22 10/28/22 History tablet,extended release(part/cryst) atorvastatin 40 mg tablet 40 mg PO DAILY 10/28/22 10/28/22 History cyclobenzaprine 10 mg tablet 10 mg PO TID 10/28/22 10/28/22 History furosemide 40 mg tablet (Lasix) 40 mg PO DAILY 10/29/22 10/29/22 History Patient History Social History Smoking Status: Current every day smoker Tobacco Type: Cigarettes Do You Dip or Chew Tobacco: No; Hx Alcohol Use: Yes Alcohol type: beer Hx Substance Use: No Preferred Language: Mosotho Communication Ability Comment: Pt states he can only sign his name. Plant Health Care Technician Required: No Beliefs That Will Affect Care: Spiritual Current Living Situation: Family Current Living Situation Comment: Brother and [id number] Feels Safe at Home: Yes Safety Concerns: Feels Safe At This Time Assistive Devices: None Review of Systems Review of Systems: All systems reviewed & are unremarkable except as noted in HPI & below Physical Exam Constitutional: WD/WN, vitals as above + obese; no acute distress Neck: + thick neck Respiratory: normal respiratory effort, lungs clear to auscultation Cardiovascular: Rate/Rhythm: regular rate and regular rhythm Heart Sounds: normal S1 and normal S2; no murmur Vessels: no JVD Extremities: no edema Gastrointestinal (Abdomen): normal bowel sounds, soft, nontender, no hepatosplenomegaly Neurologic: PERRL, EOMI, accommodation nl, no face palsy, no dysarthria Results & Data ([facility]) Vital Signs (Past 12 Hours) Vital Signs Temp Pulse Pulse Resp BP BP Pulse Ox 10/29/22 08:10 36.5 C 60 12 108/55 L 97 10/29/22 07:27 93 H 10/29/22 03:19 59 L 10/29/22 03:18 61 16 116/64 95 10/29/22 02:01 61 16 121/45 L 95 10/28/22 23:39 36.8 C 67 16 165/88 H 95 10/28/22 23:19 78 O2 Del Method 10/29/22 08:10 Room Air 10/29/22 07:27 10/29/22 03:19 10/29/22 03:18 Room Air 10/29/22 02:01 Room Air 10/28/22 23:39 Room Air 10/28/22 23:19 Laboratory Results Cardiac Enzymes 10/28/22 10/29/22 10/29/22 Range/Units 23:30 05:20 11:16 AST 19 (13-39) U/L Troponin I High Sens 74.5 H* 114.6 H* D 158.6 H* D (0-20) pg/ml Coagulation 10/28/22 Range/Units 23:30 PT 11.3 (9.0-12.0) Seconds CBC 10/28/22 10/29/22 Range/Units 23:30 05:20 WBC 8.08 7.09 (4.8-10.8) K/ul RBC 5.83 5.60 (4.70-6.10) M/uL Hgb 17.3 16.6 (14.0-18.0) g/dl Hct 49.1 47.8 (42.0-52.0) % Plt Count 173 158 (130-400) K/uL Neut # (Auto) 4.61 3.29 (1.40-6.50) K/uL Lymph # (Auto) 2.52 2.89 (1.2-3.4) K/uL Mcintosh # (Auto) 0.66 H 0.61 H (0.11-0.59) K/uL Eos # (Auto) 0.22 0.24 (0-0.50) K/uL Baso # (Auto) 0.06 0.05 (0-0.2) K/uL Comprehensive Metabolic Panel 10/28/22 10/29/22 Range/Units 23:30 05:20 Sodium 138 137 (136-145) mmol/L Potassium 4.0 4.0 (3.5-5.1) mmol/L Chloride 104 106 (98-107) mmol/L Carbon Dioxide 29 27 (21-32) mmol/L BUN 18 17 (6-23) mg/dl Creatinine 1.20 0.94 (0.6-1.4) mg/dl Glucose 107 H 107 H (70-99(Fasting)) mg/dl Calcium 9.8 9.1 (8.5-10.1) mg/dl Direct Bilirubin 0.1 (0-0.2) mg/dl AST 19 (13-39) U/L ALT 22 (7-52) U/L Alkaline Phosphatase 111 H (34-104) U/L Total Protein 7.8 (6.0-8.3) gm/dl Albumin 4.3 (3.4-5.0) gm/dl Intake and Output 10/28/22 10/29/22 10/29/22 22:59 06:59 14:59 Intake Total 608 / 608 Balance 608 / 608 Intake: IV 608 / 608 Ampicillin/Sulbactam Sod 3,000 108 / 108 mg In 0.9 % Sodium Chloride 100 ml @ 200 mls/hr IV NOW STA Rx# :[id number] Sodium Chloride 0.9% 1000ML 500 500 / 500 ml @ 999 mls/hr IV .Q31M [facility] Rx#:[id number] Other: # Unmeasured Voids 2 2 Weight 132.9 kg 134.9 kg Weight Measurement Method Built [facility] Bedscale [facility] Patient Weight 10/30/22 06:59 Weight 134.9 kg Diagnostic Findings Telemetry reviewed: NSR in the 60's, no concerning arrhythmias EKG: NSR without acute ST/T wave changes Face CT 10/28/22 23:36 Exam(s): CT FACIAL With Contrast EXAM: CT Maxillofacial With Intravenous Contrast CLINICAL HISTORY: Reason for exam: left facial swelling, dental procedure. TECHNIQUE: Axial computed tomography images of the face with intravenous contrast. CTDI is there is soft tissue swelling associated with the left face without a focal fluid collection identified. CONTRAST: Contrast must be dictated COMPARISON: No relevant prior studies available. FINDINGS: Bones/joints: No acute fracture. Soft tissues: There is soft tissue swelling associated with the left face without a focal fluid collection. Orbits: Unremarkable. Sinuses: There is scattered sinus mucosal disease. Scattered regions of sinus mucosal thickening. 12.85 mGy and DLP is 948.34 mGy-cm. No air- fluid levels. IMPRESSION: Soft tissue swelling over the left face without a focal fluid collection identified. Electronically signed by: Thomas Manning MD 10/29/22 01:[address] 10/28/22 23:36 Exam(s): CT HEAD Without Contrast EXAM: CT Head Without Intravenous Contrast CLINICAL HISTORY: Reason for exam: left sided headache. TECHNIQUE: Axial computed tomography images of the head/brain without intravenous contrast. CTDI is 38.97 mGy and DLP is 948.34 mGy-cm. COMPARISON: No relevant prior studies available. FINDINGS: Brain: There is gliosis and encephalomalacia in the right occipital lobe (image 13 series 2), the appearance is suggestive of old infarct. The cerebral and cerebellar sulci are mildly prominent consistent with mild brain atrophy. There are a few areas of decreased attenuation in the deep cerebral white matter consistent with mild small vessel ischemic/degenerative changes. No hemorrhage. Ventricles: Unremarkable. No ventriculomegaly. Bones/joints: Unremarkable. No acute fracture. Soft tissues: Unremarkable. Vasculature: Atherosclerotic disease. Sinuses: Unremarkable as visualized. No acute sinusitis. Mastoid air cells: Unremarkable as visualized. No mastoid effusion. IMPRESSION: No acute findings in the head/brain. Electronically signed by: Thomas Manning MD 10/29/22 01:37 AM Chest X-Ray 10/28/22 23:38 XR chest 1V portable HISTORY: 57 years-old Male Sepsis acute sepsis COMPARISON: Chest radiograph 07/09/2017 TECHNIQUE: AP view of the chest FINDINGS: Cardiac silhouette is enlarged. Pulmonary vascular congestion with interstitial coarsening. No pneumothorax. Mild blunting of the costophrenic angles. No large pleural effusion or lobar airspace consolidation. Bones appear grossly intact. IMPRESSION: Cardiomegaly with pulmonary vascular congestion and possible developing pulmonary edema. ACT 112: Negative or not required by law. The above report was generated using voice recognition software. It may contain grammatical, syntax or spelling errors. Electronically signed by: Mateo Trent M.D. 10/29/2022 7:30 AM Brain MRI 10/29/22 04:12 MR brain wo/w con HISTORY: 57 years-old Male stroke like symptoms. hx of cva acute strokelike symptoms COMPARISON: Head CT of same day TECHNIQUE: Multiplanar multisequence MRI of the brain was obtained both with and without the use of 13.2 cc Gadavist FINDINGS: No restricted diffusion. Degenerative changes of the imaged cervical spine. The study is mildly motion degraded. No acute intracranial hemorrhage, midline shift, abnormal extra-axial collection, hydrocephalus or intracranial mass. Encephalomalacia and gliosis within the right occipital lobe. Involutional changes with moderate T2/FLAIR hyperintense foci throughout the white matter. Cerebral venous sinuses and major arterial flow voids appear patent. Skull, orbits and soft tissues are within normal limits. Trace mastoid effusions. Mild mucosal thickening of the paranasal sinuses. No abnormal enhancement identified. IMPRESSION: 1. No acute intracranial abnormality. No acute or subacute infarct. 2. Involutional changes with moderate T2/FLAIR hyperintense foci throughout the white matter suggestive of age advanced chronic microvascular ischemic disease. 3. Chronic right occipital infarct. 4. No abnormal enhancement. ACT 112: Negative or not required by law. The above report was generated using voice recognition software. It may contain grammatical, syntax or spelling errors. Electronically signed by: Mateo Trent M.D. 10/29/2022 8:08 AM Medications Administered Current Inpatient Medications Acetaminophen (Acetaminophen 325 Mg Tab) 650 mg PO Q4H PRN PRN Reason: Pain or Fever Stop: 11/28/22 04:11 Aspirin (Aspirin 81 Mg Ectab) 81 mg PO DAILY [facility] Stop: 11/28/22 08:59 Last Admin: 10/29/22 09:08 Dose: 81 mg Atorvastatin Calcium (Atorvastatin 40 Mg Tab) 40 mg PO DAILY [facility] Stop: 11/28/22 08:59 Last Admin: 10/29/22 09:08 Dose: 40 mg Bupropion HCl (Bupropion Sr 150 Mg Tabcr) 150 mg PO DAILY [facility] Stop: 11/28/22 08:59 Last Admin: 10/29/22 09:08 Dose: 150 mg Clopidogrel Bisulfate (Clopidogrel Bisulfate 75 Mg Tab) 75 mg PO DAILY [facility] Stop: 11/28/22 08:59 Last Admin: 10/29/22 09:08 Dose: 75 mg Cyclobenzaprine HCl (Cyclobenzaprine Hcl 10 Mg Tab) 10 mg PO TID [facility] Stop: 11/28/22 08:59 Last Admin: 10/29/22 09:09 Dose: 10 mg Furosemide (Furosemide 40 Mg Tab) 40 mg PO DAILY [facility] Stop: 11/28/22 08:59 Last Admin: 10/29/22 09:09 Dose: 40 mg Lisinopril (Lisinopril 20 Mg Tab) 20 mg PO DAILY [facility] Stop: 11/28/22 08:59 Last Admin: 10/29/22 09:09 Dose: 20 mg Miscellaneous (Remove Nicoderm Patch) 1 each N/A DAILY@0859 [facility] Stop: 11/28/22 08:58 Last Admin: 10/29/22 09:22 Dose: Not Given Nicotine (Nicotine 21 Mg/24 Hr Tdsy) 21 mg TD QAM [facility] Stop: 11/28/22 08:59 Last Admin: 10/29/22 09:07 Dose: 21 mg Nitroglycerin (Nitroglycerin Sl 0.4 Mg/Tab Tab) 0.4 mg SL UD PRN PRN Reason: Chest Pain Stop: 11/28/22 04:11 Polyethylene Glycol (Polyethylene (Miralax) 17 Gm Pack) 17 gm PO DAILY PRN PRN Reason: Constipation Stop: 11/28/22 04:11 Potassium Chloride (Potassium Chloride Crtab 20 Meq Tabcr) 20 meq PO BID [facility] Stop: 11/28/22 08:59 Last Admin: 10/29/22 09:09 Dose: 20 meq
[2022-10-29] MEDS: NICOTINE 21 MG/24 HR TDSY TD SCH (09:07)
[2022-10-29] MEDS: ATORVASTATIN 40 MG TAB PO SCH (09:08)
[2022-10-29] MEDS: CLOPIDOGREL BISULFATE 75 MG TAB PO SCH (09:08)
[2022-10-29] MEDS: ASPIRIN 81 MG ECTAB PO SCH (09:08)
[2022-10-29] MEDS: buPROPion SR 150 MG TABCR PO SCH (09:08)
[2022-10-29] MEDS: lisinopril 20 MG TAB PO SCH (09:09)
[2022-10-29] MEDS: FUROSEMIDE 40 MG TAB PO SCH (09:09)
[2022-10-29] MEDS: CYCLOBENZAPRINE HCL 10 MG TAB PO SCH ×3 (09:09→20:01)
[2022-10-29] MEDS: POTASSIUM CHLORIDE CRTAB 20 MEQ TABCR PO SCH ×2 (09:09→20:02)
--- NOTE | 2022-10-29 09:28 | CT Scan Report ---
Exam(s): CT HEAD Without Contrast EXAM: CT Head Without Intravenous Contrast CLINICAL HISTORY: Reason for exam: left sided headache. TECHNIQUE: Axial computed tomography images of the head/brain without intravenous contrast. CTDI is 38.97 mGy and DLP is 948.34 mGy-cm. COMPARISON: No relevant prior studies available. FINDINGS: Brain: There is gliosis and encephalomalacia in the right occipital lobe (image 13 series 2), the appearance is suggestive of old infarct. The cerebral and cerebellar sulci are mildly prominent consistent with mild brain atrophy. There are a few areas of decreased attenuation in the deep cerebral white matter consistent with mild small vessel ischemic/degenerative changes. No hemorrhage. Ventricles: Unremarkable. No ventriculomegaly. Bones/joints: Unremarkable. No acute fracture. Soft tissues: Unremarkable. Vasculature: Atherosclerotic disease. Sinuses: Unremarkable as visualized. No acute sinusitis. Mastoid air cells: Unremarkable as visualized. No mastoid effusion. IMPRESSION: No acute findings in the head/brain. Electronically signed by: Thomas Manning MD 10/29/22 01:37 AM
--- NOTE | 2022-10-29 09:29 | CT Scan Report ---
Exam(s): CT FACIAL With Contrast EXAM: CT Maxillofacial With Intravenous Contrast CLINICAL HISTORY: Reason for exam: left facial swelling, dental procedure. TECHNIQUE: Axial computed tomography images of the face with intravenous contrast. CTDI is there is soft tissue swelling associated with the left face without a focal fluid collection identified. CONTRAST: Contrast must be dictated COMPARISON: No relevant prior studies available. FINDINGS: Bones/joints: No acute fracture. Soft tissues: There is soft tissue swelling associated with the left face without a focal fluid collection. Orbits: Unremarkable. Sinuses: There is scattered sinus mucosal disease. Scattered regions of sinus mucosal thickening. 12.85 mGy and DLP is 948.34 mGy-cm. No air- fluid levels. IMPRESSION: Soft tissue swelling over the left face without a focal fluid collection identified. Electronically signed by: Thomas Manning MD 10/29/22 01:39 AM
--- NOTE | 2022-10-29 13:08 | Ultrasound Report ---
CAROTID ARTERY ULTRASOUND CLINICAL HISTORY: facial numbness; pain; history of CVA COMPARISON STUDY: None. TECHNIQUE: Real-time, grayscale, and color Doppler sonography of the carotid and vertebral arteries w as performed. Images were viewed in the transverse and longitudinal planes. FINDINGS: There is mild to moderate atherosclerotic plaque. Velocity measurements are listed below. COMMON CAROTID PEAK SYSTOLIC VELOCITY (CM/S): RIGHT 78 LEFT 86 ICA PEAK SYSTOLIC VELOCITY (CM/S): RIGHT 94 LEFT 86 Systolic ratios between the internal to common carotid arteries were normal. Bilateral vertebral arteries were not well visualized on this exam. The external carotid arteries are patent. IMPRESSION: Mild to moderate atherosclerotic plaque without sonographic evidence for a hemodynamical ly significant stenosis within the bilateral common carotid or cervical internal carotid arteries. ACT 112: Negative or not required by law. Electronically signed by: Aba Moran M.D. 10/29/2022 1:06 PM
--- NOTE | 2022-10-29 14:40 | Hospitalist Progress Note ---
Date of Service October 29, 2022 Assessment & Plan (1) Left-sided headache: Plan: Symptoms of DO and numbness have resolved overnight. He did report this was connected to chest pain and left arm pain that was severe and crushing and does have a rising troponin. Echo pending. There is no hemodynamically significant carotid disease and no evidence of actue stroke on MRI. This may have represented a TIA, however, as the symptoms were connected to his chest pain, it is difficult to tell for sure. He is already on DAPT and Atorvastatin at moderate intensity and reports compliance with medications. Currently there are no residual deficits. ?diet or sleep hygiene may be playing a role in symptoms. Will cont to monitor on telemetry overnight to ensure no arrhythmias or return of symptoms. (2) Chest pain: Plan: Elevated troponin and chest pain symptoms concerning for ACS with risk factors of hyperlipidemia, active smoking, morbid obesity and known h/o CAD and PVD in the past. No acute ischemia on EKG. Echo reveals no acute wall motion abnormalities and he has a good EF with no significant valvulopathy. Will cont to trend trop until peaks. Appreciate cardiology input. (3) Coronary artery disease: Plan: Chronic, plan as above. Cont current medical therapy including ASA81, Atorvastatin 40mg daily, Plavix, and lisinopril. (4) Peripheral vascular disease: Plan: chronic, stable. Cont current medical therapy. (5) Dyslipidemia: Plan: chronic, stable. Cont atorvastatin per home medications. (6) Hypertension: Plan: chronic, at goal. Cont lisinopril. (7) Tobacco use: Plan: maintenance phase, smokes 1.5 ppd since he was 17 yrs old. Nicoderm patch in place. Discussed with him the increased risk of ACS while actively smoking. He states he prefers to enjoy his life and continue. (8) Morbid obesity: Plan: Lifestyle changes recommended. DVT proph: Lovenox Full Code Dispo-to home pending cardiology recommendations and if no further symptoms overnight. Laura Silver DO [facility] Hospitalist Admission and Anticipated Discharge Date Admission Date: October 29, 2022 Subjective 57 yo obese man presents with severe left anterior chest pain wtih radiation into his left head and down his left arm while at rest. Pain resolved around 0200. Currently denies any pain or SOB. He reports no interest in quitting smoking. has a h/o stent 2 stents in his right leg smokes 1.5 ppd cigarettes hyperlipidemia Review of Systems Review of Systems: All systems were reviewed and negative except as indicated on subjective below. Physical Exam Physical Exam: CONSTITUTIONAL: obese, vitals as above, generally well-appearing EYES: EOMI bilaterally, PERRL, normal conjunctivae, no scleral icterus ENT: external ear and nose normal, MMM NECK: trachea midline RESPIRATORY: clear to auscultation bilaterally, no crackles, rales or wheezes, normal respiratory effort CARDIOVASCULAR: regular rate and rhythm, S1 and 2 heard without murmurs, gallops or rubs, no JVD, no peripheral edema, no carotid bruits CHEST: inspection of chest was normal GASTROINTESTINAL: soft, nontender, ND, no guarding MUSCULOSKELETAL: strength 5/5 throughout, head is normocephalic and atraumatic SKIN: warm and dry NEUROLOGIC: CN 2-12 grossly intact, no sensory deficit, normal cognition, normal speech, no tremor PSYCHIATRIC: alert cooperative and oriented to person, place and time. Results & Data Results & Data ([facility]) Vital Signs (Past 12 Hours) Vital Signs Temp Pulse Pulse Resp BP Pulse Ox Pulse Ox 10/29/22 14:32 64 18 132/80 98 10/29/22 11:31 62 18 129/72 95 10/29/22 09:10 61 18 124/51 L 95 10/29/22 09:10 95 10/29/22 08:10 36.5 C 60 12 108/55 L 97 10/29/22 07:27 93 H 10/29/22 03:19 59 L 10/29/22 03:18 61 16 116/64 95 O2 Del Method O2 Del Method O2 Flow Rate 10/29/22 14:32 Nasal Cannula 3 10/29/22 11:31 Room Air 10/29/22 09:10 Room Air 10/29/22 09:10 Room Air 10/29/22 08:10 Room Air 10/29/22 07:27 10/29/22 03:19 10/29/22 03:18 Room Air Laboratory Results Short CBC 10/28/22 10/29/22 Range/Units 23:30 05:20 WBC 8.08 7.09 (4.8-10.8) K/ul Hgb 17.3 16.6 (14.0-18.0) g/dl Hct 49.1 47.8 (42.0-52.0) % Plt Count 173 158 (130-400) K/uL BMP 10/28/22 10/29/22 23:30 05:20 Sodium 138 137 Potassium 4.0 4.0 Chloride 104 106 Carbon Dioxide 29 27 BUN 18 17 Creatinine 1.20 0.94 Glucose 107 H 107 H Calcium 9.8 9.1 Liver Function 10/28/22 Range/Units 23:30 Total Bilirubin 0.6 (0.2-1.0) mg/dl Direct Bilirubin 0.1 (0-0.2) mg/dl AST 19 (13-39) U/L ALT 22 (7-52) U/L Alkaline Phosphatase 111 H (34-104) U/L Albumin 4.3 (3.4-5.0) gm/dl Urine 10/28/22 Range/Units 23:50 Urine Color Yellow Urine Appearance Clear (Clear) Urine pH 5.5 (4.5-7.5) Ur Specific Edwards 1.016 (1.000-1.030) Urine Protein Negative (Negative) Urine Glucose (UA) Negative (Negative) Diagnostic Findings Face CT 10/28/22 23:36 Exam(s): CT FACIAL With Contrast EXAM: CT Maxillofacial With Intravenous Contrast CLINICAL HISTORY: Reason for exam: left facial swelling, dental procedure. TECHNIQUE: Axial computed tomography images of the face with intravenous contrast. CTDI is there is soft tissue swelling associated with the left face without a focal fluid collection identified. CONTRAST: Contrast must be dictated COMPARISON: No relevant prior studies available. FINDINGS: Bones/joints: No acute fracture. Soft tissues: There is soft tissue swelling associated with the left face without a focal fluid collection. Orbits: Unremarkable. Sinuses: There is scattered sinus mucosal disease. Scattered regions of sinus mucosal thickening. 12.85 mGy and DLP is 948.34 mGy-cm. No air- fluid levels. IMPRESSION: Soft tissue swelling over the left face without a focal fluid collection identified. Electronically signed by: Thomas Manning MD 10/29/22 01:[address] 10/28/22 23:36 Exam(s): CT HEAD Without Contrast EXAM: CT Head Without Intravenous Contrast CLINICAL HISTORY: Reason for exam: left sided headache. TECHNIQUE: Axial computed tomography images of the head/brain without intravenous contrast. CTDI is 38.97 mGy and DLP is 948.34 mGy-cm. COMPARISON: No relevant prior studies available. FINDINGS: Brain: There is gliosis and encephalomalacia in the right occipital lobe (image 13 series 2), the appearance is suggestive of old infarct. The cerebral and cerebellar sulci are mildly prominent consistent with mild brain atrophy. There are a few areas of decreased attenuation in the deep cerebral white matter consistent with mild small vessel ischemic/degenerative changes. No hemorrhage. Ventricles: Unremarkable. No ventriculomegaly. Bones/joints: Unremarkable. No acute fracture. Soft tissues: Unremarkable. Vasculature: Atherosclerotic disease. Sinuses: Unremarkable as visualized. No acute sinusitis. Mastoid air cells: Unremarkable as visualized. No mastoid effusion. IMPRESSION: No acute findings in the head/brain. Electronically signed by: Thomas Manning MD 10/29/22 01:37 AM Chest X-Ray 10/28/22 23:38 XR chest 1V portable HISTORY: 57 years-old Male Sepsis acute sepsis COMPARISON: Chest radiograph 07/09/2017 TECHNIQUE: AP view of the chest FINDINGS: Cardiac silhouette is enlarged. Pulmonary vascular congestion with interstitial coarsening. No pneumothorax. Mild blunting of the costophrenic angles. No large pleural effusion or lobar airspace consolidation. Bones appear grossly intact. IMPRESSION: Cardiomegaly with pulmonary vascular congestion and possible developing pulmonary edema. ACT 112: Negative or not required by law. The above report was generated using voice recognition software. It may contain grammatical, syntax or spelling errors. Electronically signed by: Mateo Trent M.D. 10/29/2022 7:30 AM Brain MRI 10/29/22 04:12 MR brain wo/w con HISTORY: 57 years-old Male stroke like symptoms. hx of cva acute strokelike symptoms COMPARISON: Head CT of same day TECHNIQUE: Multiplanar multisequence MRI of the brain was obtained both with and without the use of 13.2 cc Gadavist FINDINGS: No restricted diffusion. Degenerative changes of the imaged cervical spine. The study is mildly motion degraded. No acute intracranial hemorrhage, midline shift, abnormal extra-axial collection, hydrocephalus or intracranial mass. Encephalomalacia and gliosis within the right occipital lobe. Involutional changes with moderate T2/FLAIR hyperintense foci throughout the white matter. Cerebral venous sinuses and major arterial flow voids appear patent. Skull, orbits and soft tissues are within normal limits. Trace mastoid effusions. Mild mucosal thickening of the paranasal sinuses. No abnormal enhancement identified. IMPRESSION: 1. No acute intracranial abnormality. No acute or subacute infarct. 2. Involutional changes with moderate T2/FLAIR hyperintense foci throughout the white matter suggestive of age advanced chronic microvascular ischemic disease. 3. Chronic right occipital infarct. 4. No abnormal enhancement. ACT 112: Negative or not required by law. The above report was generated using voice recognition software. It may contain grammatical, syntax or spelling errors. Electronically signed by: Mateo Trent M.D. 10/29/2022 8:08 AM Carotid Doppler Study 10/29/22 09:19 CAROTID ARTERY ULTRASOUND CLINICAL HISTORY: facial numbness; pain; history of CVA COMPARISON STUDY: None. TECHNIQUE: Real-time, grayscale, and color Doppler sonography of the carotid and vertebral arteries was performed. Images were viewed in the transverse and longitudinal planes. FINDINGS: There is mild to moderate atherosclerotic plaque. Velocity measurements are listed below. COMMON CAROTID PEAK SYSTOLIC VELOCITY (CM/S): RIGHT 78 LEFT 86 ICA PEAK SYSTOLIC VELOCITY (CM/S): RIGHT 94 LEFT 86 Systolic ratios between the internal to common carotid arteries were normal. Bilateral vertebral arteries were not well visualized on this exam. The external carotid arteries are patent. IMPRESSION: Mild to moderate atherosclerotic plaque without sonographic evidence for a hemodynamically significant stenosis within the bilateral common carotid or cervical internal carotid arteries. ACT 112: Negative or not required by law. Electronically signed by: Aba Moran M.D. 10/29/2022 1:06 PM Medications Administered Current Inpatient Medications Acetaminophen (Acetaminophen 325 Mg Tab) 650 mg PO Q4H PRN PRN Reason: Pain or Fever Stop: 11/28/22 04:11 Aspirin (Aspirin 81 Mg Ectab) 81 mg PO DAILY [facility] Stop: 11/28/22 08:59 Last Admin: 10/29/22 09:08 Dose: 81 mg Atorvastatin Calcium (Atorvastatin 40 Mg Tab) 40 mg PO DAILY [facility] Stop: 11/28/22 08:59 Last Admin: 10/29/22 09:08 Dose: 40 mg Bupropion HCl (Bupropion Sr 150 Mg Tabcr) 150 mg PO DAILY [facility] Stop: 11/28/22 08:59 Last Admin: 10/29/22 09:08 Dose: 150 mg Clopidogrel Bisulfate (Clopidogrel Bisulfate 75 Mg Tab) 75 mg PO DAILY [facility] Stop: 11/28/22 08:59 Last Admin: 10/29/22 09:08 Dose: 75 mg Cyclobenzaprine HCl (Cyclobenzaprine Hcl 10 Mg Tab) 10 mg PO TID [facility] Stop: 11/28/22 08:59 Last Admin: 10/29/22 09:09 Dose: 10 mg Furosemide (Furosemide 40 Mg Tab) 40 mg PO DAILY [facility] Stop: 11/28/22 08:59 Last Admin: 10/29/22 09:09 Dose: 40 mg Lisinopril (Lisinopril 20 Mg Tab) 20 mg PO DAILY [facility] Stop: 11/28/22 08:59 Last Admin: 10/29/22 09:09 Dose: 20 mg Miscellaneous (Remove Nicoderm Patch) 1 each N/A DAILY@0859 [facility] Stop: 11/28/22 08:58 Last Admin: 10/29/22 09:22 Dose: Not Given Nicotine (Nicotine 21 Mg/24 Hr Tdsy) 21 mg TD QAM [facility] Stop: 11/28/22 08:59 Last Admin: 10/29/22 09:07 Dose: 21 mg Nitroglycerin (Nitroglycerin Sl 0.4 Mg/Tab Tab) 0.4 mg SL UD PRN PRN Reason: Chest Pain Stop: 11/28/22 04:11 Polyethylene Glycol (Polyethylene (Miralax) 17 Gm Pack) 17 gm PO DAILY PRN PRN Reason: Constipation Stop: 11/28/22 04:11 Potassium Chloride (Potassium Chloride Crtab 20 Meq Tabcr) 20 meq PO BID [facility] Stop: 11/28/22 08:59 Last Admin: 10/29/22 09:09 Dose: 20 meq
--- NOTE | 2022-10-30 04:51 | Electrocardiogram Report ---
Test Reason : Blood Pressure : / mmHG Vent. Rate : 070 BPM Atrial Rate : 070 BPM P-R Int : 154 ms QRS Dur : 072 ms QT Int : 370 ms P-R-T Axes : 053 031 010 degrees QTc Int : 399 ms Normal sinus rhythm Low voltage QRS Cannot rule out Anterior infarct , age undetermined Abnormal ECG When compared with ECG of 03-MAR-2022 14:46, No significant change was found Confirmed by Dean Baca ([id number]) on 10/30/2022 4:51:31 AM Referred By: REFERRED SELF Confirmed By:Dean Baca
[2022-10-30] MEDS: NICOTINE 21 MG/24 HR TDSY TD SCH (08:06)
[2022-10-30] MEDS: ASPIRIN 81 MG ECTAB PO SCH (08:07)
[2022-10-30] MEDS: ATORVASTATIN 40 MG TAB PO SCH (08:08)
[2022-10-30] MEDS: buPROPion SR 150 MG TABCR PO SCH (08:08)
[2022-10-30] MEDS: CYCLOBENZAPRINE HCL 10 MG TAB PO SCH ×2 (08:09→14:43)
[2022-10-30] MEDS: CLOPIDOGREL BISULFATE 75 MG TAB PO SCH (08:09)
[2022-10-30] MEDS: lisinopril 20 MG TAB PO SCH (08:09)
[2022-10-30] MEDS: FUROSEMIDE 40 MG TAB PO SCH (08:10)
[2022-10-30] MEDS: POTASSIUM CHLORIDE CRTAB 20 MEQ TABCR PO SCH (08:10)
--- NOTE | 2022-10-30 08:41 | Cardiology Progress Note ---
Date of Service October 30, 2022 Assessment & Plan (1) Left-sided headache: (2) Left facial swelling: (3) Coronary artery disease: (4) Peripheral vascular disease: (5) Hypertension: (6) History of CVA (cerebrovascular accident): Plan Patient admitted for left sided facial pain/numbness radiating down left arm. Concerning symptoms for possible CVA/TIA CT of head unremarkable. Brain MRI revealed old lacunar infarct, consistent with history, but no acute findings. Carotid duplex with mild/moderate b/l plaque but no obstructive disease. Continue ASA and Plavix and statin Recommend 2 week ZIO monitor on discharge to r/o afib with history of CVA and possible TIA ([facility] office) BP initially elevated, but improved. Continue furosemide, lisinopril Troponin minimally elevated. No acute EKG changes. Echo demonstrating normal LV systolic function without wall motion abnormalities. Consider ischemic work up as outpatient, possible dobutamine stress echo. Will await cardio f/u and ZIO results. Stable for discharge from cardiac perspective. Will arrange ZIO monitor and outpatient cardio f/u at [facility] and patient will be notified. Case discussed with Dr. Christianson Admission and Anticipated Discharge Date Admission Date: October 29, 2022 Supervising Physician Co-Signing Physician Notes I have reviewed the advance practitioner documentation and agree. I saw and evaluated the patient on the date of service referenced in the note and have performed a medically appropriate history and or exam. I agree the patient can be discharged to outpatient follow-up per the hospitalist. Subjective Patient resting in bed comfortably. Denies acute complaints. Anxious for discharge. Head/facial pain and numbness improving. No chest pain or dyspnea. No palpitations. No dizziness. BP improved. Review of Systems Review of Systems: All systems reviewed & are unremarkable except as noted in HPI & below Physical Exam Constitutional: WD/WN, vitals as above + obese; no acute distress Neck: + thick neck Respiratory: normal respiratory effort, lungs clear to auscultation Cardiovascular: Rate/Rhythm: regular rate and regular rhythm Heart Sounds: normal S1 and normal S2; no murmur Vessels: no JVD Extremities: no edema Gastrointestinal (Abdomen): normal bowel sounds, soft, nontender, no hepatosplenomegaly Neurologic: PERRL, EOMI, accommodation nl, no face palsy, no dysarthria Results & Data ([facility]) Vital Signs (Past 12 Hours) Vital Signs Temp Pulse Pulse Resp BP Pulse Ox O2 Del Method 10/30/22 08:02 56 L 10/30/22 07:44 36.8 C 62 18 131/72 94 Room Air 10/30/22 03:33 36.5 C 58 L 16 128/78 94 Room Air 10/29/22 23:29 36.3 C L 58 L 18 126/71 94 Room Air Laboratory Results Cardiac Enzymes 10/29/22 10/29/22 Range/Units 11:16 16:30 Troponin I High Sens 158.6 H* D 150.5 H* (0-20) pg/ml Intake and Output 10/29/22 10/30/22 10/30/22 22:59 06:59 14:59 Intake Total 150 / 300 150 / 300 Balance 150 / 300 150 / 300 Intake: Oral 150 / 300 150 / 300 Other: Weight 132.2 kg Weight Measurement Method Standing Scale Diagnostic Findings Telemetry reviewed: NSR, sinus bradycardia with HR's ranging 50's-70's. No concerning arrhyhtmias Echo results reviewed from 10/29/22: Grossly normal valvular structure and function. LV is normal in size LV systolic function is normal. EF 55-60% RV systolic function is normal. LA and RA size are normal Carotid duplex report reviewed: IMPRESSION: Mild to moderate atherosclerotic plaque without sonographic evidence for a hemodynamically significant stenosis within the bilateral common carotid or cervical internal carotid arteries. Medications Administered Current Inpatient Medications Acetaminophen (Acetaminophen 325 Mg Tab) 650 mg PO Q4H PRN PRN Reason: Pain or Fever Stop: 11/28/22 04:11 Last Admin: 10/29/22 19:27 Dose: 650 mg Aspirin (Aspirin 81 Mg Ectab) 81 mg PO DAILY [facility] Stop: 11/28/22 08:59 Last Admin: 10/30/22 08:07 Dose: 81 mg Atorvastatin Calcium (Atorvastatin 40 Mg Tab) 40 mg PO DAILY [facility] Stop: 11/28/22 08:59 Last Admin: 10/30/22 08:08 Dose: 40 mg Bupropion HCl (Bupropion Sr 150 Mg Tabcr) 150 mg PO DAILY [facility] Stop: 11/28/22 08:59 Last Admin: 10/30/22 08:08 Dose: 150 mg Clopidogrel Bisulfate (Clopidogrel Bisulfate 75 Mg Tab) 75 mg PO DAILY [facility] Stop: 11/28/22 08:59 Last Admin: 10/30/22 08:09 Dose: 75 mg Cyclobenzaprine HCl (Cyclobenzaprine Hcl 10 Mg Tab) 10 mg PO TID [facility] Stop: 11/28/22 08:59 Last Admin: 10/30/22 08:09 Dose: 10 mg Furosemide (Furosemide 40 Mg Tab) 40 mg PO DAILY [facility] Stop: 11/28/22 08:59 Last Admin: 10/30/22 08:10 Dose: 40 mg Lisinopril (Lisinopril 20 Mg Tab) 20 mg PO DAILY [facility] Stop: 11/28/22 08:59 Last Admin: 10/30/22 08:09 Dose: 20 mg Miscellaneous (Remove Nicoderm Patch) 1 each N/A DAILY@0859 [facility] Stop: 11/28/22 08:58 Last Admin: 10/30/22 08:06 Dose: 1 each Nicotine (Nicotine 21 Mg/24 Hr Tdsy) 21 mg TD QAM [facility] Stop: 11/28/22 08:59 Last Admin: 10/30/22 08:06 Dose: 21 mg Nitroglycerin (Nitroglycerin Sl 0.4 Mg/Tab Tab) 0.4 mg SL UD PRN PRN Reason: Chest Pain Stop: 11/28/22 04:11 Polyethylene Glycol (Polyethylene (Miralax) 17 Gm Pack) 17 gm PO DAILY PRN PRN Reason: Constipation Stop: 11/28/22 04:11 Potassium Chloride (Potassium Chloride Crtab 20 Meq Tabcr) 20 meq PO BID [facility] Stop: 11/28/22 08:59 Last Admin: 10/30/22 08:10 Dose: 20 meq
--- NOTE | 2022-10-30 11:48 | Electrocardiogram Report ---
Test Reason : Blood Pressure : / mmHG Vent. Rate : 057 BPM Atrial Rate : 057 BPM P-R Int : 168 ms QRS Dur : 084 ms QT Int : 430 ms P-R-T Axes : 052 019 039 degrees QTc Int : 418 ms Sinus bradycardia Otherwise normal ECG When compared with ECG of 28-OCT-2022 23:15, No significant change was found Confirmed by Filiberto Mixon ([id number]) on 10/30/2022 11:48:03 AM Referred By: REFERRED SELF Confirmed By:Filiberto Mixon
--- NOTE | 2022-10-30 12:46 | Hospitalist Progress Note ---
Date of Service October 30, 2022 Assessment & Plan (1) Left-sided headache: Plan: Strokelike symptoms DD: Possible TIA Vs Complex Migraine H/O CVA with no residual deficits --MRI Brain:No acute intracranial abnormality. No acute or subacute infarct. Involutional changes with moderate T2/FLAIR hyperintense foci throughout the white matter suggestive of age advanced chronic microvascular ischemic disease. Chronic right occipital infarct. No abnormal enhancement. --Carotid Doppler:Mild to moderate atherosclerotic plaque without sonographic evidence for a hemodynamically significant stenosis within the bilateral common carotid or cervical internal carotid arteries. --ECHO left ventricle is normal in size. Left ventricular systolic function is normal. EF 55 to 60%. Right ventricle systolic function is normal. Left atrial size is normal. Right atrial size is normal. Continue aspirin, Plavix, Lipitor Appreciate cardiology input Currently asymptomatic Needs outpatient ZIO monitor. Plan to discharge home today (2) Chest pain: Plan: Chest pain resolved H/O CAD, PVD No signs of acute ACS No wall motion abnormality on echo Cardiology to consider outpatient dobutamine stress test Appreciate cardiology input (3) Coronary artery disease: Plan: Continue ASA, Atorvastatin, Plavix (4) Peripheral vascular disease: Plan: Continue home medication (5) Dyslipidemia: Plan: Continue atorvastatin (6) Hypertension: Plan: Continue lisinopril (7) Tobacco use: Plan: maintenance phase, smokes 1.5 ppd since he was 17 yrs old. [employer] to quit (8) Morbid obesity: Plan: Lifestyle changes recommended. BMI 45 Advised to get sleep study as outpatient DVT Px: SCDs Code Status Full Code Admission and Anticipated Discharge Date Admission Date: October 29, 2022 Subjective Patient is seen and examined at bedside States feeling well today Offers no complaints Left facial pain, numbness, headache resolved Denies any chest pain, dyspnea, dizziness, nausea, abdominal pain, focal weakness Plan to discharge home today Review of Systems Review of Systems: All systems reviewed & are unremarkable except as noted in Subjective Physical Exam Physical Exam: Physical Exam: Vitals signs as noted above General Appearance:Morbidly Obese, no apparent distress Head: normocephalic, Atraumatic Eyes: normal inspection, EOMI Neck: supple, Trachea midline Respiratory/Chest: Normal breath sounds, CTA, No accessory muscle use Cardiovascular: S1, S2, No murmur Abdomen/GI:Soft, Non tender, Bowel sounds present Extremities/Musculoskeletal:normal inspection, 1+ B/L LE edema Neurologic/Psych:AAOX3, grossly no focal neurological deficits Skin: normal color, warm Results & Data Results & Data ([facility]) Vital Signs (Past 12 Hours) Vital Signs Temp Pulse Pulse Resp BP BP Pulse Ox 10/30/22 11:21 36.7 C 57 L 18 124/73 95 10/30/22 08:02 56 L 10/30/22 07:44 36.8 C 62 18 131/72 94 10/30/22 03:33 36.5 C 58 L 16 128/78 94 O2 Del Method 10/30/22 11:21 Room Air 10/30/22 08:02 10/30/22 07:44 Room Air 10/30/22 03:33 Room Air
--- NOTE | 2022-10-30 13:05 | Discharge Summary ---
Date of Service October 30, 2022 Admission HPI Per Admitting Provider CHIEF COMPLAINT: Left-sided headache with left arm ache and numbness. HISTORY OF PRESENT ILLNESS: A 57-year-old male with past medical history significant for hypertension, hyperlipidemia, history of CVA, history of CAD, status post stents; history of peripheral vascular disease, obesity, ongoing tobacco abuse, presents with left-sided headache extending from his left side of the head to the face and extending up to the forearm, starting about 3-4 days ago. It is on and off. Sometimes while resting also pain comes on, sometimes he is taking nitro and with resting it subsides on its own a couple of hours later. He says it is not getting better, that is why he came to the ER. He also had some tooth extraction on the lower front teeth and upper right tooth a couple of days ago, but the patient says this current symptoms of left-sided headache and forearm pain started prior to extraction of the teeth. He has had no pain or tenderness inside his mouth. He is eating and swallowing okay. Denies any dizziness, no blurred visions, no cough, no fevers, no shortness of breath, no nausea, no abdominal pain. Normal bowel and bladder movements. He is ambulating okay in the room. He states he had cardiac stents and stents in his right leg 10 years ago and he says couple of years ago had stroke and at that time, the symptoms were similar to today's symptoms. He is resting comfortably and hemodynamically stable. Admission Exam Per Admitting Provider PHYSICAL EXAMINATION: GENERAL: The patient is morbidly obese, not in acute distress. VITAL SIGNS: Temperature 36.8, pulse 59, respiratory rate 16, blood pressure 116/64, oxygen 95% on room air. HEENT: Pupils equal, round and reactive to light. Absent right side upper teeth and lower front teeth. No obvious erythema or swelling seen in the mouth. NECK: No JVD. No neck masses. CARDIOVASCULAR: S1 and S2 heard. Regular rate and rhythm. No murmur, no gallop. RESPIRATORY SYSTEM: Normal AP diameter. No accessory muscle use. No wheezing or crackles. ABDOMEN: Soft, bowel sounds present, nontender, no distention. CENTRAL NERVOUS SYSTEM: Alert and oriented. Speech is clear. No facial droop. Insight is okay. Obeying simple commands. Power 5/5 in all extremities. Sensation is intact. Position sense intact. No pronator drift. Coordination of movements normal. EXTREMITIES: No edema, no erythema. Principal Diagnosis Chest Pain Strokelike symptoms Discharge Data Allergies Allergy/AdvReac Type Severity Reaction Status Date / Time No Known Allergies Allergy Verified 10/28/22 23:50 Consultations 10/29/22 02:34 ED Decision to Admit Stat 10/29/22 08:00 Consult Cardiology Routine Procedures Performed Laboratory Results WBC 7.09 K/ul (4.8-10.8) 10/29/22 05:20 RBC 5.60 M/uL (4.70-6.10) 10/29/22 05:20 Hgb 16.6 g/dl (14.0-18.0) 10/29/22 05:20 Hct 47.8 % (42.0-52.0) 10/29/22 05:20 MCV 85.4 fL (80.0-100.0) 10/29/22 05:20 MCH 29.6 pg (25.0-34.0) 10/29/22 05:20 MCHC 34.7 g/dL (32.0-36.0) 10/29/22 05:20 RDW Std Deviation 38.9 fL (36.4-46.3) 10/29/22 05:20 RDW Coeff of Bennie 12.6 % (11.5-14.5) 10/29/22 05:20 Plt Count 158 K/uL (130-400) 10/29/22 05:20 MPV 10.4 fL (9.4-12.4) 10/29/22 05:20 Immature Gran % (Auto) 0.1 % 10/29/22 05:20 Neut % (Auto) 46.4 % 10/29/22 05:20 Lymph % (Auto) 40.8 % 10/29/22 05:20 [place] % (Auto) 8.6 % 10/29/22 05:20 Eos % (Auto) 3.4 % 10/29/22 05:20 Baso % (Auto) 0.7 % 10/29/22 05:20 Neut # (Auto) 3.29 K/uL (1.40-6.50) 10/29/22 05:20 Lymph # (Auto) 2.89 K/uL (1.2-3.4) 10/29/22 05:20 [place] # (Auto) 0.61 K/uL (0.11-0.59) H 10/29/22 05:20 Eos # (Auto) 0.24 K/uL (0-0.50) 10/29/22 05:20 Baso # (Auto) 0.05 K/uL (0-0.2) 10/29/22 05:20 Immature Gran # (Auto) 0.01 K/uL (0.01-0.20) 10/29/22 05:20 PT 11.3 Seconds (9.0-12.0) 10/28/22 23:30 INR 1.1 (0.9-1.1) 10/28/22 23:30 Sodium 137 mmol/L (136-145) 10/29/22 05:20 Potassium 4.0 mmol/L (3.5-5.1) 10/29/22 05:20 Chloride 106 mmol/L (98-107) 10/29/22 05:20 Carbon Dioxide 27 mmol/L (21-32) 10/29/22 05:20 Anion Gap 4 (3-11) 10/29/22 05:20 BUN 17 mg/dl (6-23) 10/29/22 05:20 Creatinine 0.94 mg/dl (0.6-1.4) 10/29/22 05:20 Est Cr Clr Drug Dosing 116.6 ml/min 10/29/22 05:20 Est GFR ( Amer) 105.4 ml/min 10/29/22 05:20 Est GFR (Non-Af Amer) 90.9 ml/min 10/29/22 05:20 BUN/Creatinine Ratio 18.1 (10-20) 10/29/22 05:20 Glucose 107 mg/dl (70-99(Fasting)) H 10/29/22 05:20 Lactate 1.5 mmol/L (0.4-2.0) 10/29/22 00:33 Calcium 9.1 mg/dl (8.5-10.1) 10/29/22 05:20 Magnesium 2.0 mg/dl (1.7-2.4) 10/29/22 05:20 Total Bilirubin 0.6 mg/dl (0.2-1.0) 10/28/22 23:30 Direct Bilirubin 0.1 mg/dl (0-0.2) 10/28/22 23:30 AST 19 U/L (13-39) 10/28/22 23:30 ALT 22 U/L (7-52) 10/28/22 23:30 Alkaline Phosphatase 111 U/L (34-104) H 10/28/22 23:30 Troponin I High Sens 150.5 pg/ml (0-20) H* 10/29/22 16:30 Total Protein 7.8 gm/dl (6.0-8.3) 10/28/22 23:30 Albumin 4.3 gm/dl (3.4-5.0) 10/28/22 23:30 Procalcitonin < 0.05 ng/ml (0-0.5) 10/28/22 23:30 Urine Color Yellow 10/28/22 23:50 Urine Appearance Clear (Clear) 10/28/22 23:50 Urine pH 5.5 (4.5-7.5) 10/28/22 23:50 Ur Specific [place] 1.016 (1.000-1.030) 10/28/22 23:50 Urine Protein Negative (Negative) 10/28/22 23:50 Urine Glucose (UA) Negative (Negative) 10/28/22 23:50 Urine Ketones Trace (Negative) H 10/28/22 23:50 Urine Blood Negative (Negative) 10/28/22 23:50 Urine Nitrite Negative (Negative) 10/28/22 23:50 Urine Bilirubin Negative (Negative) 10/28/22 23:50 Urine Urobilinogen Negative (Negative) 10/28/22 23:50 Ur Leukocyte Esterase Trace (Negative) H 10/28/22 23:50 Urine WBC (Auto) 1-5 /hpf (0-5) 10/28/22 23:50 Urine RBC (Auto) 0-4 /hpf (0-4) 10/28/22 23:50 U Hyaline Cast (Auto) 1-5 /lpf (0-5) 10/28/22 23:50 U Epithel Cells (Auto) 0-5 /lpf (0-5) 10/28/22 23:50 Urine Bacteria (Auto) Negative (Negative) 10/28/22 23:50 Ethyl Alcohol mg/dL < 10.0 mg/dl (<10.0) 10/29/22 00:33 SARS-CoV-2 (PCR) NEGATIVE (Negative) 10/29/22 02:25 Influenza Type A (PCR) Negative (Neg) 10/29/22 02:25 Influenza Type B (PCR) Negative (Neg) 10/29/22 02:25 RSV (RT-PCR) Negative (Neg) 10/29/22 02:[address] 10/28/22 23:36 Exam(s): CT FACIAL With Contrast EXAM: CT Maxillofacial With Intravenous Contrast CLINICAL HISTORY: Reason for exam: left facial swelling, dental procedure. TECHNIQUE: Axial computed tomography images of the face with intravenous contrast. CTDI is there is soft tissue swelling associated with the left face without a focal fluid collection identified. CONTRAST: Contrast must be dictated COMPARISON: No relevant prior studies available. FINDINGS: Bones/joints: No acute fracture. Soft tissues: There is soft tissue swelling associated with the left face without a focal fluid collection. Orbits: Unremarkable. Sinuses: There is scattered sinus mucosal disease. Scattered regions of sinus mucosal thickening. 12.85 mGy and DLP is 948.34 mGy-cm. No air- fluid levels. IMPRESSION: Soft tissue swelling over the left face without a focal fluid collection identified. Electronically signed by: Thomas Manning MD 10/29/22 01:[address] 10/28/22 23:36 Exam(s): CT HEAD Without Contrast EXAM: CT Head Without Intravenous Contrast CLINICAL HISTORY: Reason for exam: left sided headache. TECHNIQUE: Axial computed tomography images of the head/brain without intravenous contrast. CTDI is 38.97 mGy and DLP is 948.34 mGy-cm. COMPARISON: No relevant prior studies available. FINDINGS: Brain: There is gliosis and encephalomalacia in the right occipital lobe (image 13 series 2), the appearance is suggestive of old infarct. The cerebral and cerebellar sulci are mildly prominent consistent with mild brain atrophy. There are a few areas of decreased attenuation in the deep cerebral white matter consistent with mild small vessel ischemic/degenerative changes. No hemorrhage. Ventricles: Unremarkable. No ventriculomegaly. Bones/joints: Unremarkable. No acute fracture. Soft tissues: Unremarkable. Vasculature: Atherosclerotic disease. Sinuses: Unremarkable as visualized. No acute sinusitis. Mastoid air cells: Unremarkable as visualized. No mastoid effusion. IMPRESSION: No acute findings in the head/brain. Electronically signed by: Thomas Manning MD 10/29/22 01:37 AM Chest X-Ray 10/28/22 23:38 XR chest 1V portable HISTORY: 57 years-old Male Sepsis acute sepsis COMPARISON: Chest radiograph 07/09/2017 TECHNIQUE: AP view of the chest FINDINGS: Cardiac silhouette is enlarged. Pulmonary vascular congestion with interstitial coarsening. No pneumothorax. Mild blunting of the costophrenic angles. No large pleural effusion or lobar airspace consolidation. Bones appear grossly intact. IMPRESSION: Cardiomegaly with pulmonary vascular congestion and possible developing pulmonary edema. ACT 112: Negative or not required by law. The above report was generated using voice recognition software. It may contain grammatical, syntax or spelling errors. Electronically signed by: Mateo Trent M.D. 10/29/2022 7:30 AM Brain MRI 10/29/22 04:12 MR brain wo/w con HISTORY: 57 years-old Male stroke like symptoms. hx of cva acute strokelike symptoms COMPARISON: Head CT of same day TECHNIQUE: Multiplanar multisequence MRI of the brain was obtained both with and without the use of 13.2 cc Gadavist FINDINGS: No restricted diffusion. Degenerative changes of the imaged cervical spine. The study is mildly motion degraded. No acute intracranial hemorrhage, midline shift, abnormal extra-axial collection, hydrocephalus or intracranial mass. Encephalomalacia and gliosis within the right occipital lobe. Involutional changes with moderate T2/FLAIR hyperintense foci throughout the white matter. Cerebral venous sinuses and major arterial flow voids appear patent. Skull, orbits and soft tissues are within normal limits. Trace mastoid effusions. Mild mucosal thickening of the paranasal sinuses. No abnormal enhancement identified. IMPRESSION: 1. No acute intracranial abnormality. No acute or subacute infarct. 2. Involutional changes with moderate T2/FLAIR hyperintense foci throughout the white matter suggestive of age advanced chronic microvascular ischemic disease. 3. Chronic right occipital infarct. 4. No abnormal enhancement. ACT 112: Negative or not required by law. The above report was generated using voice recognition software. It may contain grammatical, syntax or spelling errors. Electronically signed by: Mateo Trent M.D. 10/29/2022 8:08 AM Carotid Doppler Study 10/29/22 09:19 CAROTID ARTERY ULTRASOUND CLINICAL HISTORY: facial numbness; pain; history of CVA COMPARISON STUDY: None. TECHNIQUE: Real-time, grayscale, and color Doppler sonography of the carotid and vertebral arteries was performed. Images were viewed in the transverse and longitudinal planes. FINDINGS: There is mild to moderate atherosclerotic plaque. Velocity measurements are listed below. COMMON CAROTID PEAK SYSTOLIC VELOCITY (CM/S): RIGHT 78 LEFT 86 ICA PEAK SYSTOLIC VELOCITY (CM/S): RIGHT 94 LEFT 86 Systolic ratios between the internal to common carotid arteries were normal. Bilateral vertebral arteries were not well visualized on this exam. The external carotid arteries are patent. IMPRESSION: Mild to moderate atherosclerotic plaque without sonographic evidence for a hemodynamically significant stenosis within the bilateral common carotid or cervical internal carotid arteries. ACT 112: Negative or not required by law. Electronically signed by: Aba Moran M.D. 10/29/2022 1:06 PM Ordered Studies 10/28/22 23:36 CT facial bones w con Stat CT head/brain wo con Stat 10/29/22 04:12 MRI Brain [MR brain wo/w con] Routine 10/29/22 09:19 Carotid duplex [US carotid doppler BI] Routine Hospital Course (1) Left-sided headache: Strokelike symptoms DD: Possible TIA Vs Complex Migraine H/O CVA with no residual deficits --MRI Brain:No acute intracranial abnormality. No acute or subacute infarct. Involutional changes with moderate T2/FLAIR hyperintense foci throughout the white matter suggestive of age advanced chronic microvascular ischemic disease. Chronic right occipital infarct. No abnormal enhancement. --Carotid Doppler:Mild to moderate atherosclerotic plaque without sonographic evidence for a hemodynamically significant stenosis within the bilateral common carotid or cervical internal carotid arteries. --ECHO left ventricle is normal in size. Left ventricular systolic function is normal. EF 55 to 60%. Right ventricle systolic function is normal. Left atrial size is normal. Right atrial size is normal. Continue aspirin, Plavix, Lipitor Appreciate cardiology input Currently asymptomatic Needs outpatient ZIO monitor. Plan to discharge home today (2) Chest pain: Chest pain resolved H/O CAD, PVD No signs of acute ACS No wall motion abnormality on echo Cardiology to consider outpatient dobutamine stress test Appreciate cardiology input (3) Coronary artery disease: Continue ASA, Atorvastatin, Plavix (4) Peripheral vascular disease: Continue home medication (5) Dyslipidemia: Continue atorvastatin (6) Hypertension: Continue lisinopril (7) Tobacco use: maintenance phase, smokes 1.5 ppd since he was 17 yrs old. [employer] to quit (8) Morbid obesity: Lifestyle changes recommended. BMI 45 Advised to get sleep study as outpatient DVT Px: SCDs Code Status Full Code Total Time Total Time Spent Total Time Spent (In Minutes): 45 minutes Discharge Plan Discharge Items Patient Disposition: Home - Self-Care Reason For Visit: LEFT HAND AND ARM PAIN Discharge Diagnosis: Chest Pain Strokelike symptoms Activity: Per Instructions section Exercise/Sports: Wait until after follow-up appointment Non-emergency contact: Primary Care Provider and [employer] Call non-emergency contact if: you have any medication questions, your symptoms worsen, your pain is concerning for you and you have a fever Follow-up/Referrals: Walter Little PA-C [Primary Care Provider] - Diet: Heart Healthy Addtl Attending Provider Instructions: Follow-up with your primary care physician Walter Little PA-C in 1 week Follow-up with your package worker Dr. Christianson for outpatient dobutamine stress test and Zio patch monitor for 2 weeks -- Consider following with your neurologist if you have recurrence of symptoms -- Obtain outpatient sleep study as advised. -- Quit smoking tobacco as advised. Seek immediate medical attention if your symptoms reoccur or worsen Please take all medications as instructed on discharge list below. Please call if you have any questions or problems. You can reach a [facility] hospitalist on duty at [facility] 24 hours a day by calling [phone] Risk Factors for Stroke: You can reduce your chances of stroke by working with your medical provider to adopt a healthy lifestyle. Some specific ways to lower your chance of stroke are: * If you are a smoker, now is the time to stop smoking cigarettes * If you are diabetic, improve the control of your blood sugars * Avoid excessive amounts of alcohol * Control high blood pressure * Lose weight if you are overweight * Be sure to lead an active lifestyle * Eat a healthy diet low in salt, cholesterol and fat You should know about other risk factors for stroke that you are unable to control. These include: * Age 55 years or older * Male gender * Certain racial groups: , or / * Family History of Stroke, Mini stroke or Heart Attack * Sickle Cell Disease Follow Up: It is important for you to keep your follow up appointments with your medical provider. Who to Call and When: Medical Emergencies: Call 911 immediately if you experience any of the following warning signs and symptoms of Stroke: * Sudden numbness or weakness of the face, arm or leg, especially on one side of the body * Sudden confusion, trouble speaking or understanding * Sudden trouble seeing in one or both eyes * Sudden trouble walking, dizziness, loss of balance or coordination * Sudden severe headache with no cause Do not delay calling 911 if you experience any warning signs or symptoms of a stroke. Delay in seeking medical attention may affect what treatments can be given to you. . Pending Studies at Discharge: No Stand-Alone Forms: [facility], Smoking Cessation Medications and DC Order Prescriptions: Continued cyclobenzaprine 10 mg tablet 10 mg PO TID Rx Instructions: PER PT "TOOK ALL OF MY MEDS", PER EMS "HASN'T BEEN TAKING MEDS", NO EXT MED HX TO VERIFY THAT THESE MEDS HAVE BEEN FILLED ANYWHERE. atorvastatin 40 mg Tablet 40 mg PO DAILY Rx Instructions: PER PT "TOOK ALL OF MY MEDS", PER EMS "HASN'T BEEN TAKING MEDS", NO EXT MED HX TO VERIFY THAT THESE MEDS HAVE BEEN FILLED ANYWHERE. furosemide [Lasix] 40 mg Tablet 40 mg PO DAILY bupropion HCl 150 mg tablet sustained-release 12 hr 150 mg PO DAILY Rx Instructions: PER PT "TOOK ALL OF MY MEDS", PER EMS "HASN'T BEEN TAKING MEDS", NO EXT MED HX TO VERIFY THAT THESE MEDS HAVE BEEN FILLED ANYWHERE. lisinopril 20 mg tablet 20 mg PO DAILY Rx Instructions: PER PT "TOOK ALL OF MY MEDS", PER EMS "HASN'T BEEN TAKING MEDS", NO EXT MED HX TO VERIFY THAT THESE MEDS HAVE BEEN FILLED ANYWHERE. clopidogrel 75 mg tablet 75 mg PO DAILY Rx Instructions: PER PT "TOOK ALL OF MY MEDS", PER EMS "HASN'T BEEN TAKING MEDS", NO EXT MED HX TO VERIFY THAT THESE MEDS HAVE BEEN FILLED ANYWHERE. aspirin 81 mg tablet,delayed release (DR/EC) 81 mg PO DAILY Rx Instructions: PER PT "TOOK ALL OF MY MEDS", PER EMS "HASN'T BEEN TAKING MEDS", NO EXT MED HX TO VERIFY THAT THESE MEDS HAVE BEEN FILLED ANYWHERE. potassium chloride 20 mEq tablet,ER particles/crystals 20 meq PO BID Rx Instructions: PER PT "TOOK ALL OF MY MEDS", PER EMS "HASN'T BEEN TAKING MEDS", NO EXT MED HX TO VERIFY THAT THESE MEDS HAVE BEEN FILLED ANYWHERE. nitroglycerin [Nitrostat] 0.4 mg Tablet, Sublingual 0.4 mg sublingual DIRECTED PRN (Reason: Chest Pain) Rx Instructions: PER PT "TOOK ALL OF MY MEDS", PER EMS "HASN'T BEEN TAKING MEDS", NO EXT MED HX TO VERIFY THAT THESE MEDS HAVE BEEN FILLED ANYWHERE. Discharge Orders: Discharge Order (Routine); Ordered 10/30/22 Ordered By: Gold Baptiste Admission Data Admit Date/Time: 10/29/22 03:31 Attending Provider: Gold Baptiste Admit Provider: Parth Blackwell Primary Care Provider: Walter Little Other Providers: Parth Blackwell ; Britney Layton ; Bret Caceres ; Toni Newton ; Esvin Ghotra ; Troy Castano ; Dylon Christianson ; Sam Gómez ; Bree Reyes ; Valeria Sutherland ; Britney Thomas ; Eagle Hanley
== END 2022-10-30 16:22 | disposition home or self-care (01) ==
LOC: EDINP 23:12 → ED 23:12 → SUATTDRO 10-29 03:31 → 4W 10-29 04:12

== ENCOUNTER 2022-11-11 21:43 | Inpatient (IN) ==
[2022-11-11] MEDS ORDERED: NITROGLYCERIN SL 0.4 MG/TAB TAB SL STA (22:19)
[2022-11-11] MEDS ORDERED: ASPIRIN CHEW 324 MG PO STA (22:19)
--- NOTE | 2022-11-11 22:25 | Emergency Department Note ---
Impression & Plan Chest pain, Hypertension ED Provider Note NAME: JA JURADO AGE: 57 SEX: M : 1965 ARRIVES VIA: Walk-In INFORMANT: Patient ED PROVIDER(S): Britton Gunn DO CHIEF COMPLAINT: chest pain HPI: Patient is a 57-year-old male with a past medical history of hypertension, hyperlipidemia, smoker, CAD with stent in the LAD 10 years ago who presents the ER for midsternal chest tightness rating up to the jaw and down the left arm. He admits to shortness of breath with this. Started around 5 PM to 6 PM and nearly resolved just prior to arrival here. Denies any belly pain nausea vomiting or diarrhea. No dysuria urgency or frequency. He notes it feels similar to his previous heart attack. He denies any history of diabetes. No other exacerbating or remitting factors. PAST MEDICAL HISTORY:See Below PAST SURGICAL HISTORY:See Below FAMILY HISTORY:See Below SOCIAL HISTORY:See Below HOME MEDICATIONS:See Below ALLERGIES:See Below VITALS:See Below PHYSICAL EXAMINATION: GENERAL: Sitting up in bed, alert, well appearing, well nourished, no distress, non-toxic EYE EXAM: normal conjunctiva. OROPHARYNX: no exudate, no erythema, lips, buccal mucosa, and tongue normal and mucous membranes are moist NECK: supple, no nuchal rigidity, no adenopathy, non-tender LUNGS: Clear to auscultation. Normal chest wall mechanics HEART: no murmurs, S1 normal and S2 normal ABDOMEN: abdomen soft, non-tender, normo-active bowel sounds, no masses, no rebound or guarding. UPPER EXTREMITIES: upper extremities are grossly normal. LOWER EXTREMITIES: No pitting edema. NEURO EXAM: Normal sensorium, cranial nerves II-XII grossly intact, normal speech, no gross weakness of arms, no gross weakness of legs. MEDICAL DECISION MAKING: Patient is a 57-year-old male with a past medical history of an LAD stent who presents ER for midsternal chest pain associate with shortness of breath jaw pain and arm pain which feels slightly similar to his previous HI. IV was established blood work was obtained. Labs show no significant leukocytosis or anemia. BMP with slightly elevated chloride. LFTs bilirubin and lipase was unremarkable. Troponin was negative. COVID was negative. Pain completely resolved with nitro. He was given aspirin. Chest x-ray unremarkable. EKG was nondiagnostic. He was admitted to the hospitalist pain-free following nitro aspirin with a negative troponin. High risk per heart score. Triage Nursing notes reviewed. Limited review of prior medical records performed Vital Signs: reviewed and remarkable for HTN Differential diagnosis: Cardiac ischemia, aortic dissection, pulmonary embolism, pneumothorax, pneumonia, pericarditis, myocarditis, esophageal rupture, GERD, cholecystitis, pancreatitis, musculoskeletal, as well as other pathologies. ER treatment provided: See below Diagnostics interpreted by me include EKG and cardiac monitoring as listed below: -Cardiac Monitoring: An order was placed for continuous cardiac monitoring. The monitor shows a rate of 70 with sinus rhythm. -ECG: Sinus rhythm rate 70 Normal axis No PVCs QTc 388 -Laboratory studies:Interpreted by me as stated above in MDM and shown below. 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 Beliefs That Will Affect Care: Spiritual Current Living Situation: Family Current Living Situation Comment: Brother and [id number] Feels Safe at Home: Yes Assistive Devices: None Allergies Allergies Allergy/AdvReac Type Severity Reaction Status Date / Time No Known Allergies Allergy Verified 11/11/22 22:57 Home Meds Home Medications Medication Instructions Recorded Confirmed aspirin 81 mg tablet,delayed 81 mg PO DAILY 03/03/22 11/11/22 release bupropion HCl 150 mg tablet,12 hr 150 mg PO DAILY 03/03/22 11/11/22 sustained-release clopidogrel 75 mg tablet 75 mg PO DAILY 03/03/22 11/11/22 lisinopril 20 mg tablet 20 mg PO DAILY 03/03/22 11/11/22 nitroglycerin 0.4 mg sublingual 0.4 mg sublingual DIRECTED PRN 03/03/22 11/11/22 tablet (Nitrostat) Chest Pain potassium chloride 20 mEq 20 meq PO BID 03/03/22 11/11/22 tablet,extended release(part/cryst) atorvastatin 40 mg tablet 40 mg PO DAILY 10/28/22 11/11/22 cyclobenzaprine 10 mg tablet 10 mg PO TID 10/28/22 11/11/22 furosemide 40 mg tablet (Lasix) 40 mg PO DAILY 10/29/22 11/11/22 Results & Data (ED) Vital Signs Vital Signs - 24 hr 11/11/22 21:46 11/11/22 22:14 11/11/22 22:43 Temperature 36.7 C Temperature Source Temporal Artery Scan Pulse Rate 71 64 Pulse Rate [Apical] Pulse Rate from SpO2 Sensor Respiratory Rate 16 Blood Pressure 190/83 H Blood Pressure [Right Arm] Blood Pressure Mean 118 Blood Pressure Mean [Right Arm] Pulse Oximetry 95 95 Oxygen Delivery Method Room Air Room Air Sepsis Recent Fever Within 48 Hours No Sepsis New/Unexplained Change in Mental Status N/A Sepsis Action Taken by Nursing No Action Required 11/11/22 22:44 11/11/22 22:50 11/11/22 23:00 Temperature Temperature Source Pulse Rate 62 61 60 Pulse Rate [Apical] Pulse Rate from SpO2 Sensor 60 60 59 L Respiratory Rate 17 19 20 Blood Pressure 143/83 H Blood Pressure [Right Arm] Blood Pressure Mean 103 Blood Pressure Mean [Right Arm] Pulse Oximetry 96 96 96 Oxygen Delivery Method Sepsis Recent Fever Within 48 Hours Sepsis New/Unexplained Change in Mental Status Sepsis Action Taken by Nursing 11/11/22 23:38 11/12/22 01:07 Temperature Temperature Source Pulse Rate Pulse Rate [Apical] 62 62 Pulse Rate from SpO2 Sensor Respiratory Rate 20 Blood Pressure Blood Pressure [Right Arm] 148/70 H 115/69 Blood Pressure Mean Blood Pressure Mean [Right Arm] 96 84 Pulse Oximetry 96 93 Oxygen Delivery Method Room Air Room Air Sepsis Recent Fever Within 48 Hours Sepsis New/Unexplained Change in Mental Status Sepsis Action Taken by Nursing Laboratory Data 11/11/22 21:56 11/11/22 21:56 Lab Results 11/11/22 11/11/22 11/11/22 Range/Units 21:56 21:56 22:20 WBC 6.82 (4.8-10.8) K/ul RBC 5.62 (4.70-6.10) M/uL Hgb 16.6 (14.0-18.0) g/dl Hct 48.3 (42.0-52.0) % MCV 85.9 (80.0-100.0) fL MCH 29.5 (25.0-34.0) pg MCHC 34.4 (32.0-36.0) g/dL RDW Std Deviation 39.0 (36.4-46.3) fL RDW Coeff of Bennie 12.6 (11.5-14.5) % Plt Count 161 (130-400) K/uL MPV 10.8 (9.4-12.4) fL Immature Gran % (Auto) 0.1 % Neut % (Auto) 52.4 % Lymph % (Auto) 34.9 % [place] % (Auto) 8.7 % Eos % (Auto) 3.2 % Baso % (Auto) 0.7 % Neut # (Auto) 3.57 (1.40-6.50) K/uL Lymph # (Auto) 2.38 (1.2-3.4) K/uL [place] # (Auto) 0.59 (0.11-0.59) K/uL Eos # (Auto) 0.22 (0-0.50) K/uL Baso # (Auto) 0.05 (0-0.2) K/uL Immature Gran # (Auto) 0.01 (0.01-0.20) K/uL Sodium 140 (136-145) mmol/L Potassium 4.4 (3.5-5.1) mmol/L Chloride 108 H (98-107) mmol/L Carbon Dioxide 26 (21-32) mmol/L Anion Gap 6 (3-11) BUN 19 (6-23) mg/dl Creatinine 1.26 (0.6-1.4) mg/dl Est Cr Clr Drug Dosing 87.5 ml/min Est GFR ( Amer) 73.9 ml/min Est GFR (Non-Af Amer) 63.8 ml/min BUN/Creatinine Ratio 15.1 (10-20) Glucose 95 (70-99(Fasting)) mg/dl Calcium 9.7 (8.5-10.1) mg/dl Total Bilirubin 0.4 (0.2-1.0) mg/dl AST 17 (13-39) U/L ALT 21 (7-52) U/L Alkaline Phosphatase 120 H (34-104) U/L Troponin I High Sens 15.3 (0-20) pg/ml Total Protein 7.7 (6.0-8.3) gm/dl Albumin 4.2 (3.4-5.0) gm/dl Globulin 3.5 (2.5-4.0) gm/dl Albumin/Globulin Ratio 1.2 (0.9-2) Lipase 24 (11-82) U/L SARS-CoV-2, RNA, NAAT NEGATIVE (NEGATIVE) Administered Medications Discontinued Medications Aspirin (Aspirin Chew 324 Mg) 324 mg PO NOW STA Stop: 11/11/22 22:20 Last Admin: 11/11/22 22:26 Dose: 324 mg Documented By: MARIO Nitroglycerin (Nitroglycerin Sl 0.4 Mg/Tab Tab) 0.4 mg SL NOW STA Stop: 11/11/22 22:20 Last Admin: 11/11/22 22:27 Dose: 0.4 mg Documented By: MARIO Discharge Plan Visit Data Chief Complaint: Chest Pain Stated Complaint: CHEST PAIN,TIGHTNESS IN NECK/THROAT ED Provider: Britton Gunn Discharge Problem: Chest pain, Hypertension Forms Stand Alone Forms: My [facility] Prescriptions Prescriptions: No Action cyclobenzaprine 10 mg tablet 10 mg PO TID atorvastatin 40 mg Tablet 40 mg PO DAILY furosemide [Lasix] 40 mg Tablet 40 mg PO DAILY bupropion HCl 150 mg tablet sustained-release 12 hr 150 mg PO DAILY lisinopril 20 mg tablet 20 mg PO DAILY clopidogrel 75 mg tablet 75 mg PO DAILY aspirin 81 mg tablet,delayed release (DR/EC) 81 mg PO DAILY potassium chloride 20 mEq tablet,ER particles/crystals 20 meq PO BID nitroglycerin [Nitrostat] 0.4 mg Tablet, Sublingual 0.4 mg sublingual DIRECTED PRN (Reason: Chest Pain) Referrals Referrals: Walter Little PA-C [Primary Care Provider] -
[2022-11-11 22:30] LABS: Basophils # (auto) 0.05 K/uL (0-0.2); Basophils % (auto) 0.7 %; Eosinophils # (auto) 0.22 K/uL (0-0.50); Eosinophils % (auto) 3.2 %; Hematocrit (blood only) 48.3 % (42.0-52.0); Hemoglobin 16.6 g/dl (14.0-18.0); Immature Granulocytes # (auto) 0.01 K/uL (0.01-0.20); Immature Granulocytes % (auto) 0.1 %; Lymphocytes # (auto) 2.38 K/uL (1.2-3.4); Lymphocytes % (auto) 34.9 %; Mean Corpuscular Hemoglobin 29.5 pg (25.0-34.0); Mean Corpuscular Hgb Conc 34.4 g/dL (32.0-36.0); Mean Corpuscular Volume 85.9 fL (80.0-100.0); Mean Platelet Volume 10.8 fL (9.4-12.4); Monocytes # (auto) 0.59 K/uL (0.11-0.59); Monocytes % (auto) 8.7 %; Neutrophils # (auto) 3.57 K/uL (1.40-6.50); Neutrophils % (auto) 52.4 %; Platelet Count 161 K/uL (130-400); RDW Coefficient of Variation 12.6 % (11.5-14.5); Red Blood Count 5.62 M/uL (4.70-6.10); White Blood Count 6.82 K/ul (4.8-10.8)
[2022-11-11 22:44] LABS: Albumin Globulin Ratio 1.2 (0.9-2); Albumin Level 4.2 gm/dl (3.4-5.0); BUN Creatinine Ratio 15.1 (10-20); Bilirubin,Total 0.4 mg/dl (0.2-1.0); Calcium 9.7 mg/dl (8.5-10.1); Creatinine Clr Calc Pharmacy 87.5 ml/min; Est GFR (African American) 73.9 ml/min; Est GFR (Non-African American) 63.8 ml/min; Globulin 3.5 gm/dl (2.5-4.0); Potassium 4.4 mmol/L (3.5-5.1); Total Protein 7.7 gm/dl (6.0-8.3)
[2022-11-11 22:50] LABS: Troponin I High Sensitivity 15.3 pg/ml (0-20)
[2022-11-12] MEDS ORDERED: NITROGLYCERIN SL 0.4 MG/TAB TAB SL PRN (02:20)
[2022-11-12] MEDS ORDERED: ONDANSETRON INJ 2 MG/ML 2 ML VIAL IV PRN (02:20)
[2022-11-12] MEDS ORDERED: ACETAMINOPHEN 325 MG TAB PO PRN (02:20)
--- NOTE | 2022-11-12 02:49 | History and Physical Report ---
DATE OF ADMISSION: 11/12/2022. CHIEF COMPLAINT: Chest pain. HISTORY OF PRESENT ILLNESS: This is a 57-year-old male with past medical history significant for hypertension, hyperlipidemia, history of CVA, history of CAD, status post stents, history of peripheral vascular disease, obesity, history of tobacco abuse, presents with chest pain. The patient was recently in the hospital for chest pain and also possible stroke and stroke workup was negative. Seen by case picker with plan for outpatient dobutamine stress test. He also had Zio monitor as outpatient, but the monitor was not working properly and was sent back and he is waiting for the replacement. Presents with chest pain. The patient says since 5:00 p.m., he had noticed chest pain, discomfort, sharp pain in middle of chest and tightness in throat radiating to left arm which prompted him to come to the ER . Aspirin and nitro pain resolved. Currently, resting comfortably, hemodynamically stable. No fevers, no cough,, no nausea, no abdominal pain. Normal bowel and bladder movements. Hemodynamically stable. ALLERGIES: No known drug allergies. PAST MEDICAL HISTORY: As mentioned above. PAST SURGICAL HISTORY: Cardiac stent placement, appendectomy. MEDICATIONS: Aspirin 81 mg p.o. daily, atorvastatin 40 mg p.o. daily, bupropion 150 mg p.o. daily, Plavix 75 mg p.o. daily, cyclobenzaprine 10 mg p.o. t.i.d., Lasix 40 mg p.o. daily, lisinopril 20 mg p.o. daily, nitroglycerin 0.4 mg sublingual p.r.n., potassium chloride 20 mEq p.o. b.i.d. FAMILY HISTORY: Significant for father and mother had heart disease. SOCIAL HISTORY: Smokes 1-1/2 packs of cigarettes daily. Alcohol rarely. No drugs. REVIEW OF SYSTEMS: As per HPI. Rest of review of systems is negative. PHYSICAL EXAMINATION: GENERAL: The patient is morbidly obese, not in acute distress. VITAL SIGNS: Temperature 36.7, pulse 62, respiratory rate 20, blood pressure 148/70, oxygen 96% on room air. HEENT: Pupils equal, round and reactive to light. Oral mucosa moist. NECK: No JVD or neck masses. CARDIOVASCULAR: S1 and S2 heard. Regular rate and rhythm. No murmur, no gallop. RESPIRATORY SYSTEM: Normal AP diameter. No accessory muscle use. No wheezing or crackles. ABDOMEN: Soft, bowel sounds present, nontender, no distention. CENTRAL NERVOUS SYSTEM: Cranial nerves II through XII grossly intact. Nonfocal. EXTREMITIES: No edema, no erythema. LABORATORY DATA: WBC 6.8, hemoglobin 16.6, hematocrit 48.3, platelets 161. Sodium 140, potassium 4.4, chloride 108, bicarbonate 26, BUN 19, creatinine 1.2, serum glucose 95, calcium 9.7, total bilirubin 0.4, AST 17, ALT 21, alkaline phosphatase 120. Troponin I high sensitivity 15.3. Lipase 24. SARS-CoV-2 rapid test negative. IMAGING DATA: Chest x-ray, no acute findings. EKG, normal sinus rhythm at a rate of 70, no significant change was found. ASSESSMENT AND PLAN: This is a 57-year-old male, who presents with chest pain. 1. Chest pain. Rule out acute coronary syndrome. History of coronary artery disease, status post stent. Initial workup was negative. Will keep him n.p.o. Serial cardiac enzymes. Consult cardiology. Further management as per Cardiology. Continue aspirin, Plavix, statin. 3. Hypertension. On lisinopril and diuretics. Monitor the blood pressure. 4. Obesity. Needs counseling. 5. Peripheral vascular disease. On aspirin, Plavix and statin. 6. Deep venous thrombosis prophylaxis: Sequential compression devices for now. DISPOSITION: Monitor in [facility]. Expect to discharge home and follow with family doctor. Level 1 full code. Job ID: [id number] MTDD
[2022-11-12] MEDS: NICOTINE 21 MG/24 HR TDSY TD SCH (04:48)
[2022-11-12 06:58] LABS: Basophils # (auto) 0.07 K/uL (0-0.2); Eosinophils # (auto) 0.26 K/uL (0-0.50); Eosinophils % (auto) 3.8 %; Hematocrit (blood only) 45.4 % (42.0-52.0); Hemoglobin 15.8 g/dl (14.0-18.0); Immature Granulocytes # (auto) 0.01 K/uL (0.01-0.20); Immature Granulocytes % (auto) 0.1 %; Lymphocytes # (auto) 2.89 K/uL (1.2-3.4); Lymphocytes % (auto) 42.6 %; Mean Corpuscular Hemoglobin 29.5 pg (25.0-34.0); Mean Corpuscular Hgb Conc 34.8 g/dL (32.0-36.0); Mean Corpuscular Volume 84.9 fL (80.0-100.0); Monocytes # (auto) 0.58 K/uL (0.11-0.59); Monocytes % (auto) 8.5 %; Neutrophils # (auto) 2.98 K/uL (1.40-6.50); Platelet Count 157 K/uL (130-400); RDW Coefficient of Variation 12.6 % (11.5-14.5); RDW Standard Deviation 38.8 fL (36.4-46.3); Red Blood Count 5.35 M/uL (4.70-6.10); White Blood Count 6.79 K/ul (4.8-10.8)
[2022-11-12 07:06] LABS: BUN Creatinine Ratio 16.8 (10-20); Calcium 8.9 mg/dl (8.5-10.1); Creatinine Clr Calc Pharmacy 116.1 ml/min; Est GFR (Non-African American) 89.8 ml/min; Magnesium 2.1 mg/dl (1.7-2.4)
[2022-11-12 07:15] LABS: Troponin I High Sensitivity 21.6 pg/ml (0-20)
--- NOTE | 2022-11-12 07:25 | XRay Report ---
XR chest 1V portable HISTORY: Chest pain, nonspecific COMPARISON: Chest 10/28/2022. FINDINGS: The lungs are clear. The cardiac silhouette remains mildly enlarged. No pleural effusions. No pneumothorax. No evidence for pulmonary edema. IMPRESSION: Stable mild cardiomegaly. ACT 112: Negative or not required by law. Electronically signed by: Arash Soriano M.D. 11/12/2022 7:24 AM
[2022-11-12] MEDS: buPROPion SR 150 MG TABCR PO SCH (09:00)
[2022-11-12] MEDS: CYCLOBENZAPRINE HCL 10 MG TAB PO SCH ×3 (09:00→21:15)
[2022-11-12] MEDS ORDERED: ATORVASTATIN 40 MG TAB PO SCH (09:00)
[2022-11-12] MEDS: lisinopril 20 MG TAB PO SCH (09:00)
[2022-11-12] MEDS: ASPIRIN 81 MG ECTAB PO SCH (09:00)
[2022-11-12] MEDS: POTASSIUM CHLORIDE CRTAB 20 MEQ TABCR PO SCH ×2 (09:00→21:16)
[2022-11-12] MEDS: FUROSEMIDE 40 MG TAB PO SCH (09:01)
[2022-11-12] MEDS: CLOPIDOGREL BISULFATE 75 MG TAB PO SCH (09:01)
--- NOTE | 2022-11-12 10:04 | Cardiology Consultation ---
Date of Consultation November 12, 2022 Assessment & Plan (1) Non-ST elevation (NSTEMI) myocardial infarction: (2) Peripheral vascular disease: (3) Tobacco use: (4) Hypertension: (5) Dyslipidemia, goal LDL below 70: Plan 57-year-old patient mated with recurrent chest, neck, left shoulder discomfort. Troponin mildly elevated suggestive NSTEMI. Risk, benefits, terms to cardiac catheterization discussed. Patient agreeable. We will initiate intravenous heparin in [employer] unless there is a delay to procedure. Continue aspirin, Plavix, FRANKLIN inhibitor and furosemide as previously ordered. Titrate atorvastatin to 80 mg daily. Patient will remain n.p.o. at this time in anticipation of the procedure. Further recommendations pending result of cardiac catheterization. History of Present Illness Reason for Consultation: Chest pain Requesting Physician: Dr. Blackwell Attending Physician: Roibn Doherty MD History of Present Illness 57-year-old male present to the emergency department with chest, neck, and left arm discomfort. Describes a pressure-like sensation radiating to his neck, left shoulder, left arm. Reports symptoms are reminiscent of prior myocardial infarction more than 10 years ago. States "I got a stent in my maker". Also reports lower extremity stenting below the knee on the right side. Records unavailable. Patient pain-free overnight. Currently resting comfortably. Telemetry reveals sinus rhythm. High-sensitivity troponin trending upward. Denies palpitations, orthopnea, PND, lower extremity edema, or syncope. Reports cramping of his lower extremities when he rushes or carries heavy objects. Admits to smoking 1.5 packs of cigarettes per day. Allergies Allergy/AdvReac Type Severity Reaction Status Date / Time No Known Allergies Allergy Verified 11/11/22 22:57 Home Medications Medication Instructions Recorded Confirmed Type aspirin 81 mg tablet,delayed 81 mg PO DAILY 03/03/22 11/11/22 History release bupropion HCl 150 mg tablet,12 hr 150 mg PO DAILY 03/03/22 11/11/22 History sustained-release clopidogrel 75 mg tablet 75 mg PO DAILY 03/03/22 11/11/22 History lisinopril 20 mg tablet 20 mg PO DAILY 03/03/22 11/11/22 History nitroglycerin 0.4 mg sublingual 0.4 mg sublingual DIRECTED PRN 03/03/22 11/11/22 History tablet (Nitrostat) Chest Pain potassium chloride 20 mEq 20 meq PO BID 03/03/22 11/11/22 History tablet,extended release(part/cryst) atorvastatin 40 mg tablet 40 mg PO DAILY 10/28/22 11/11/22 History cyclobenzaprine 10 mg tablet 10 mg PO TID 10/28/22 11/11/22 History furosemide 40 mg tablet (Lasix) 40 mg PO DAILY 10/29/22 11/11/22 History Patient History Social History Smoking Status: Current every day smoker Tobacco Type: Cigarettes Second Hand Exposure: No; Hx Alcohol Use: Yes Alcohol type: beer Hx Substance Use: No Preferred Language: Israeli Communication Ability: Effective Scraper Tender Required: No Beliefs That Will Affect Care: None Current Living Situation: Family Current Living Situation Comment: Brother and [id number] Feels Safe at Home: Yes Assistive Devices: None Review of Systems Review of Systems: All systems reviewed & are unremarkable except as noted in Subjective Physical Exam Constitutional: well nourished; no acute distress Respiratory: no respiratory distress, no labored breathing and no retractions Auscultation: no crackles, no rales, no rhonchi and no wheezes Cardiovascular: Rate/Rhythm: regular rate and regular rhythm Heart Sounds: normal S1 and normal S2; no murmur Vessels: femoral pulses present and radial pulses present; no JVD and no carotid bruit Extremities: no edema Gastrointestinal (Abdomen): Inspection/Auscultation: abdomen normal to inspection and normal bowel sounds; abdomen not distended Percussion/Palpation: abdomen soft; abdomen nontender, no guarding and abdomen not rigid Neurologic: CN's II-XI intact bilaterally and moves all extremities; no focal motor deficits Psychiatric: A+Ox3, euthymic affect Results & Data Vital Signs (Past 12 Hours) Vital Signs Temp Pulse Pulse Resp BP BP BP 11/12/22 08:03 66 11/12/22 08:32 36.9 C 62 20 157/69 H 11/12/22 07:10 36.6 C 67 19 152/60 H 11/12/22 04:00 36.7 C 58 L 18 133/88 11/12/22 02:48 36.5 C 62 18 156/88 H 11/12/22 03:06 62 11/12/22 02:48 36.5 C 62 18 156/88 H 11/12/22 01:07 62 115/69 11/11/22 23:38 62 20 148/70 H 11/11/22 23:00 60 20 143/83 H 11/11/22 22:50 61 19 11/11/22 22:44 62 17 11/11/22 22:43 64 11/11/22 22:14 Pulse Ox O2 Del Method 11/12/22 08:03 11/12/22 08:32 93 Room Air 11/12/22 07:10 90 Room Air 11/12/22 04:00 97 Room Air 11/12/22 02:48 97 Room Air 11/12/22 03:06 11/12/22 02:48 97 Room Air 11/12/22 01:07 93 Room Air 11/11/22 23:38 96 Room Air 11/11/22 23:00 96 11/11/22 22:50 96 11/11/22 22:44 96 11/11/22 22:43 11/11/22 22:14 95 Room Air Laboratory Results Cardiac Enzymes 11/11/22 11/12/22 Range/Units 21:56 05:32 AST 17 (13-39) U/L Troponin I High Sens 15.3 21.6 H (0-20) pg/ml CBC 11/11/22 11/12/22 Range/Units 21:56 05:32 WBC 6.82 6.79 (4.8-10.8) K/ul RBC 5.62 5.35 (4.70-6.10) M/uL Hgb 16.6 15.8 (14.0-18.0) g/dl Hct 48.3 45.4 (42.0-52.0) % Plt Count 161 157 (130-400) K/uL Neut # (Auto) 3.57 2.98 (1.40-6.50) K/uL Lymph # (Auto) 2.38 2.89 (1.2-3.4) K/uL [place] # (Auto) 0.59 0.58 (0.11-0.59) K/uL Eos # (Auto) 0.22 0.26 (0-0.50) K/uL Baso # (Auto) 0.05 0.07 (0-0.2) K/uL Comprehensive Metabolic Panel 11/11/22 11/12/22 Range/Units 21:56 05:32 Sodium 140 139 (136-145) mmol/L Potassium 4.4 4.0 (3.5-5.1) mmol/L Chloride 108 H 107 (98-107) mmol/L Carbon Dioxide 26 26 (21-32) mmol/L BUN 19 16 (6-23) mg/dl Creatinine 1.26 0.95 D (0.6-1.4) mg/dl Glucose 95 99 (70-99(Fasting)) mg/dl Calcium 9.7 8.9 (8.5-10.1) mg/dl AST 17 (13-39) U/L ALT 21 (7-52) U/L Alkaline Phosphatase 120 H (34-104) U/L Total Protein 7.7 (6.0-8.3) gm/dl Albumin 4.2 (3.4-5.0) gm/dl Intake and Output 11/11/22 11/12/22 11/12/22 22:59 06:59 14:59 Other: Other Intake Source NPO Weight 134.4 kg 134.4 kg Weight Measurement Method Chair Scale Built in [facility]
--- NOTE | 2022-11-12 13:09 | Pre Anesthesia Assessment ---
Date of Service November 12, 2022 Pre Sedation Assessment Vital Signs Temp Pulse Pulse Resp BP Pulse Ox O2 Del Method 11/13/22 10:40 36.8 C 54 L 18 145/88 H 93 Room Air 11/13/22 07:11 36.4 C L 64 14 124/78 96 Room Air 11/13/22 02:59 36.9 C 59 L 18 101/56 L 90 Room Air 11/13/22 00:01 58 L 11/12/22 23:20 36.7 C 60 18 153/75 H 95 Room Air 11/12/22 19:56 36.6 C 56 L 18 131/64 90 Room Air 11/12/22 16:54 65 128/88 96 Room Air 11/12/22 15:46 55 L 129/77 96 Room Air 11/12/22 13:08 62 16 119/72 96 Room Air Cardiovascular + regular rate and + regular rhythm + S1 normal and + S2 normal; no murmur + femoral pulses present and + radial pulses present; no JVD and no carotid bruit no edema Respiratory + respiratory effort normal; no respiratory distress, no labored breathing and no retractions no crackles, no rales, no rhonchi and no wheezes Pre-Sedation Airway Assessment Smoking Status: Current every day smoker Mallampati Class: III ASA: ASA4 NPO Status Date of Last Intake of Fluids: 11/11/22 Date of Last Intake of Solid Food: 11/11/22 Procedure Planning Contraindications for Sedation: none Current Medications Reviewed: Yes Notes The planned sedation has been discussed with the patient. Informed Consent was obtained. I have identified the patient, determined the appropriateness of sedation and have assessed the patient immediately prior to the procedure. All medicine(s) and interventions are by my order.
[2022-11-12] MEDS ORDERED: MIDAZOLAM HCL 1 MG/ML 2ML VIAL ONE ×2 (13:15→14:00)
[2022-11-12] MEDS ORDERED: niCARdipine HCL INJ 2.5 MG/ML 10 ML AMP ONE (13:15)
[2022-11-12] MEDS ORDERED: HEPARIN (PORCINE) 1000 UNIT/ML 10 ML (CATH LAB USE ONLY) ONE ×2 (13:15→14:14)
[2022-11-12] MEDS ORDERED: NITROGLYCERIN/D5W 100MCG/ML 20ML SYR ONE (13:16)
--- NOTE | 2022-11-12 14:04 | Post Anesthesia Assessment ---
Date of Service November 12, 2022 Post Sedation Assessment Vital Signs Temp Pulse Pulse Resp BP Pulse Ox O2 Del Method 11/13/22 10:40 36.8 C 54 L 18 145/88 H 93 Room Air 11/13/22 07:11 36.4 C L 64 14 124/78 96 Room Air 11/13/22 02:59 36.9 C 59 L 18 101/56 L 90 Room Air 11/13/22 00:01 58 L 11/12/22 23:20 36.7 C 60 18 153/75 H 95 Room Air 11/12/22 19:56 36.6 C 56 L 18 131/64 90 Room Air 11/12/22 16:54 65 128/88 96 Room Air 11/12/22 15:46 55 L 129/77 96 Room Air 11/12/22 13:08 62 16 119/72 96 Room Air Recovery Score Activity: Moves 4 extremities Respiration: Deep Breath/Cough Circulation: +/-20% PreAnes Value Consciousness: Arouseable (by name) Oxygen Saturation: > 92% On Room Air Discharge Sedation Level of Care: Phase I Post Sedation Plan On clinical assessment, the patient appears to have tolerated the sedation without complications. Patient is recovering as anticipated. Patient will continue to be monitored by nursing and may be discharged when sedation discharge criteria are met per below protocol. Upon Completions of procedure up to 15 minutes continue every 5 minute vital signs and the P.A.R. score; then discharge to a Phase I or Fast Track to Phase II per the following guidelines: * Discharge Patient to appropriate Phase II area if PAR is 8 or greater or return to pre- procedure baseline. The post - procedure orders will be as directed. * If PAR score is less than 8 or not return to pre-procedure baseline then patient will follow Phase I monitoring till PAR is reached for Phase II. The Phase I may be done in procedure room or may call to secure a Phase I area. * If naloxone or flumazenil are used for reversal, hold in Phase I for continued monitoring from when last reversal dose was given for a minimum of 60 minutes or longer pending the nurse and/or physician discretion of patient condition before discharge to Phase II. Please call the Sedation Physician to re-evaluate and complete post-note for discharge to Phase II area. Do NOT discharge from procedure sedation or Phase 1 until post- sedation evaluation note is complete by procedure /sedation MD Sedation Discharge Instructions to be given to the patient at discharge to home.
--- NOTE | 2022-11-12 14:09 | Cardiac Catheterization ---
Cardiac Cath Procedure Full Procedure Date November 12, 2022 Pre-Procedure Diagnosis Pre-Procedure Diagnosis: Non STEMI and CAD AUC Score AUC Score: 8 Post-Procedure Diagnosis Post-Procedure Diagnosis: Severe CAD and Normal Intracardiac Pressures Procedure(s) Performed Procedure(s) Performed: Coronary Angiography and Left Heart Cath Elephant Keeper Troy Castano DO Railways Assistant(s) Gill Box Operator INDUSTRIAL RELATIONS ANALYST Estimated Blood Loss Estimated Blood Loss: 5cc Medication(s) Medication(s): Fentanyl, Heparin, Lidocaine 1%, Nicardipine, Nitroglycerin and Versed Summary of Findings 90% mid RCA 70% mid LAD Patent left circumflex stent with 30% instent restenosis Hemodynamics Rest Ao:: 100/62/78 Final Ao: 109/64/83 LV: 100/6/10 Recommendations Recommendations: PCI without planned CABG (FFR LAD) Specimens Specimens: None Radiation Exposure (mGy) 1462 Contrast (mls) 80 Fluids (cc crystalloids) Fluids (cc crystalloids): 80 Nss Drains Drains: N/A Anesthesia Moderate sedation. Start 1330. End 1351. Sedation monitor: Rd DONIS Procedural Complication(s) None Disposition Patient remained in Geography Professor for FFR of LAD. I attest to the content of the Intraoperative Record and any orders documented therein. Any exceptions are noted below. ACC Data: Geography Professor Cardiac Status Clinical evaluation leading to the procedure 57-year-old male with known CAD, prior stenting and PVD presents with NSTEMI. CAD Presenation: Non STEMI Heart Failure: No Cardiogenic Shock within 24 Hours: No Cardiac Arrest within 24 Hours: No Imaging Studies Past 6 Months: Yes Stress Studies Past 6 Months: No STEMI OR Non-STEMI Symptom Onset Date: 11/11/22 Symptom Onset Time: 17:00 Thrombolytics: No Coronary Anatomy Dominant: Right Left Main (% Stenosis): Normal LAD (% Stenosis): Proximal (Luminal irregularities, 20%.), Mid (70%) and Distal (30%, 40% apical) D1 (% Stenosis): Proximal (30%), Mid (20-30% diffuse) and Distal (40%) Circumflex (% Stenosis): Proximal (20%), Mid (Patent stent with 30% in-stent restenosis) and Distal (20% diffuse, Scant exvd-at-sclwy collaterals.) OM1 (% Stenosis): Mid (20% diffuse) and Distal (30% at bifurcation) OM2 (% Stenosis): Mid (Luminal irregularities, 20%, small, 1.5 mm vessel.) RCA (% Stenosis): Ostial (30% with catheter induced spasm), Mid (90%) and Distal (20%) R PDA (% Stenosis): Proximal (20%) and Distal (10%) R PL1 (% Stenosis): Proximal (50%) Diagnostic Physicians Name: Troy Castano DO Closure Device Percutaneous Entry Location: Radial Closure Device: Radial Band Recommendations: PCI without planned CABG (FFR LAD) Intraprocedure Events Significant Disection: No Perforation: No
[2022-11-12] MEDS ORDERED: ADENOSINE IV SOLN 3 MG/ML 20 ML VIAL IV ONE (14:18)
[2022-11-12] MEDS: fentaNYL citrate PF 100 MCG/2 ML VIAL ONE ×2 (14:37→14:46)
[2022-11-12] MEDS ORDERED: fentaNYL citrate PF 100 MCG/2 ML VIAL ONE (14:40)
[2022-11-12] MEDS ORDERED: CLOPIDOGREL BISULFATE 300 MG TAB ONE (14:58)
--- NOTE | 2022-11-12 17:54 | Hospitalist Progress Note ---
Date of Service November 12, 2022 Assessment & Plan Admission and Anticipated Discharge Date Admission Date: November 12, 2022 Subjective Patient admitted this morning, due to chest pain. Has hx of CAD. Currently pt is laying in bed in no acute distress, echocardiogram being done at the bedside. Patient seen by cardiology, plan for cardiac cath later today. Currently patient is comfortable, denies any more chest pain palpitations or shortness of breath. We will follow-up on recommendations from cardiology after cardiac cath. MD Bessy Results & Data Results & Data Vital Signs (Past 12 Hours) Vital Signs Temp Pulse Pulse Resp BP BP Pulse Ox 11/12/22 16:54 65 128/88 96 11/12/22 15:46 55 L 129/77 96 11/12/22 13:08 62 16 119/72 96 11/12/22 08:03 66 11/12/22 08:32 36.9 C 62 20 157/69 H 93 11/12/22 07:10 36.6 C 67 19 152/60 H 90 O2 Del Method 11/12/22 16:54 Room Air 11/12/22 15:46 Room Air 11/12/22 13:08 Room Air 11/12/22 08:03 11/12/22 08:32 Room Air 11/12/22 07:10 Room Air
--- NOTE | 2022-11-12 19:14 | Cardiac Catheterization ---
ACC Data: Sidewalk Inspector Cardiac Status Clinical evaluation leading to the procedure CAD Presenation: Non STEMI Anginal Classification: CCS IV Diagnostic Physicians Name: Salazar Kaur MD Closure Device Recommendations: PCI without planned CABG Cardiac Cath Procedure Full Procedure Date November 12, 2022 Pre-Procedure Diagnosis Pre-Procedure Diagnosis: Non STEMI and CAD AUC Score AUC Score: 8 Post-Procedure Diagnosis Post-Procedure Diagnosis: Severe CAD and Successful PCI Procedure(s) Performed Procedure(s) Performed: Coronary Angiography, Drug Eluting Stent and Fractional Flow [place] Spice Mixer Salazar Kaur MD Insole Toe Snipping Machine Operator(s) Hugo COAL WASHER TENDER Estimated Blood Loss Estimated Blood Loss: 20 Medication(s) Medication(s): Clopidogrel, Fentanyl, Heparin, Lidocaine 1%, Nicardipine, Nitroglycerin and Versed Summary of Findings Indication: NSTEMI Access: 6 Fr right radial artery Catheters: JR4 guide, JL 3.5 guide Findings: For full details of patient's coronary angiography please see cath report dictated by Dr. Castano. Briefly, patient found to have severe mid RCA disease and intermediate mid LAD. Decision to proceed with PCI of RCA and FFR of mid LAD -- PCI -- Antithrombotic therapy: Heparin, clopidogrel Procedure: RCA cannulated with JR4 guide Pre-procedure flow DALIA 3 Safety Engineer 50 wire passed across lesion into distal vessel Mid RCA lesion predilated with 2.5 compliant balloon Dilated lesion stented with 3.5 x 26 mm Fracisco drug-eluting stent Stent post-dilated with 4.0 noncompliant balloon IC vasodilators administered for spasm Post procedure DALIA 3 flow, stent well expanded with minimal residual stenosis and no apparent cardiac complications. FFR of LAD -left main cannulated with JL 3.5 guide -Safety Engineer 50 wire placed into distal LAD -ACIST Catheter placed across stenosis -Pd/Pa 0.89 -FFR 0.75 -Coronary angiography revealed no apparent complications post wire/catheter removal Arterial Closure: TR band Summary: 1. Successful PCI of mid RCA with single drug-eluting stent (3.5 x 26 mm Wendell; postdilated with 4.0 NC) 2. Obstructive/severe mid LAD disease by FFR (0.75). Recommendations: To PCU for continued monitoring Reloaded with clopidogrel 300 mg in Sidewalk Inspector. Continue dual-antiplatelet therapy for at least 1 year Continue statin, and ASCVD risk factor modification Consult cardiac Rehab Plan for staged PCI of mid LAD later this hospitalization. Hemodynamics Rest Ao:: 100/62/78 Final Ao: 134/58/80 LV: 104/8 Recommendations Recommendations: PCI without planned CABG Specimens Specimens: None Radiation Exposure (mGy) 3984 Contrast (mls) 180 Drains Drains: N/A Anesthesia Moderate sedation. Start 1415. End 1459. Sedation monitor: Rd DONIS Procedural Complication(s) None Disposition PCU I attest to the content of the Intraoperative Record and any orders documented therein. Any exceptions are noted below. [facility] Card Cath Procedure Codes Cardiac Catheterization Procedure 1: Cardiovascular Cath Procedures: 58898 (Doppler) Pressure Wire Moderate Sedation Procedure 1: Sedation/Anesthesia: 42620 Mod Sedation by the same physician;Init15 Min Child Age 5 & Up Stenting Procedure 1: Cardiovascular Stent Procedures: 36911 Perc transcatheter placement of intracoronary stent(s), with ang PG Care Time/CCT Total # of Minutes Spent Total Time Spent with Patient: Total time spent is greater than 50% in coordination of care (as documented) at patient's floor/unit and/or counseling patient:
--- NOTE | 2022-11-12 19:15 | Post Anesthesia Assessment ---
Date of Service November 12, 2022 Post Sedation Assessment Vital Signs Temp Pulse Pulse Resp BP BP BP 11/12/22 16:54 65 128/88 11/12/22 15:46 55 L 129/77 11/12/22 13:08 62 16 119/72 11/12/22 08:03 66 11/12/22 08:32 98.4 F 62 20 157/69 H 11/12/22 07:10 97.9 F 67 19 152/60 H 11/12/22 04:00 98.1 F 58 L 18 133/88 11/12/22 02:48 97.7 F 62 18 156/88 H 11/12/22 03:06 62 11/12/22 02:48 97.7 F 62 18 156/88 H 11/12/22 01:07 62 115/69 11/11/22 23:38 62 20 148/70 H 11/11/22 23:00 60 20 143/83 H 11/11/22 22:50 61 19 11/11/22 22:44 62 17 11/11/22 22:43 64 11/11/22 22:14 11/11/22 21:46 98.1 F 71 16 190/83 H Pulse Ox O2 Del Method 11/12/22 16:54 96 Room Air 11/12/22 15:46 96 Room Air 11/12/22 13:08 96 Room Air 11/12/22 08:03 11/12/22 08:32 93 Room Air 11/12/22 07:10 90 Room Air 11/12/22 04:00 97 Room Air 11/12/22 02:48 97 Room Air 11/12/22 03:06 11/12/22 02:48 97 Room Air 11/12/22 01:07 93 Room Air 11/11/22 23:38 96 Room Air 11/11/22 23:00 96 11/11/22 22:50 96 11/11/22 22:44 96 11/11/22 22:43 11/11/22 22:14 95 Room Air 11/11/22 21:46 95 Room Air Recovery Score Activity: Moves 4 extremities Respiration: Deep Breath/Cough Circulation: +/-20% PreAnes Value Consciousness: Arouseable (by name) Oxygen Saturation: > 92% On Room Air Discharge Sedation Level of Care: Fast Track Phase II Post Sedation Plan On clinical assessment, the patient appears to have tolerated the sedation without complications. Patient is recovering as anticipated. Patient will continue to be monitored by nursing and may be discharged when sedation discharge criteria are met per below protocol. Upon Completions of procedure up to 15 minutes continue every 5 minute vital signs and the P.A.R. score; then discharge to a Phase I or Fast Track to Phase II per the following guidelines: * Discharge Patient to appropriate Phase II area if PAR is 8 or greater or return to pre- procedure baseline. The post - procedure orders will be as directed. * If PAR score is less than 8 or not return to pre-procedure baseline then patient will follow Phase I monitoring till PAR is reached for Phase II. The Phase I may be done in procedure room or may call to secure a Phase I area. * If naloxone or flumazenil are used for reversal, hold in Phase I for continued monitoring from when last reversal dose was given for a minimum of 60 minutes or longer pending the nurse and/or physician discretion of patient condition before discharge to Phase II. Please call the Sedation Physician to re-evaluate and complete post-note for discharge to Phase II area. Do NOT discharge from procedure sedation or Phase 1 until post- sedation evaluation note is complete by procedure /sedation MD Sedation Discharge Instructions to be given to the patient at discharge to home.
[2022-11-13 05:58] LABS: Hematocrit (blood only) 45.4 % (42.0-52.0); Hemoglobin 15.7 g/dl (14.0-18.0); Mean Corpuscular Hemoglobin 29.4 pg (25.0-34.0); Mean Corpuscular Hgb Conc 34.6 g/dL (32.0-36.0); Platelet Count 144 K/uL (130-400); RDW Coefficient of Variation 12.7 % (11.5-14.5); RDW Standard Deviation 38.6 fL (36.4-46.3); Red Blood Count 5.34 M/uL (4.70-6.10); White Blood Count 6.64 K/ul (4.8-10.8)
[2022-11-13 06:15] LABS: BUN Creatinine Ratio 17.2 (10-20); Calcium 8.8 mg/dl (8.5-10.1); Creatinine Clr Calc Pharmacy 112.3 ml/min; Est GFR (Non-African American) 85.4 ml/min; Magnesium 2.1 mg/dl (1.7-2.4); Phosphorus 3.3 mg/dl (2.5-4.9); Potassium 4.2 mmol/L (3.5-5.1)
--- NOTE | 2022-11-13 07:29 | Hospitalist Progress Note ---
Date of Service November 13, 2022 Assessment & Plan (1) Non-ST elevation (NSTEMI) myocardial infarction: (2) Elevated troponin: (3) Morbid obesity: Plan: This is a 57-year-old male, who presents with chest pain. 1. Chest pain. NSTEMI History of coronary artery disease, status post stent. Cardiology consulted - now status post PCI to RCA with single drug-eluting stent yesterday (11/12) today status post PCI to mid LAD with single drug-eluting stent (11/13/22) Residual ostial stenosis of jailed diagonal but DALIA-3 flow Recommendations: To PCU for continued monitoring Reloaded with clopidogrel 300 mg in Flower Maker. Continue dual-antiplatelet therapy for at least 1 year Continue statin, and ASCVD risk factor modification Consult cardiac Rehab Medical management of residual CAD Further management as per Cardiology. Continue aspirin, Plavix, statin. 3. Hypertension. On lisinopril and diuretics.Hold diuretics. Monitor the blood pressure. 4. Obesity. Needs counseling. 5. Peripheral vascular disease. On aspirin, Plavix and statin. DVT prophylaxis:heparin given in boot and shoe laborer, scds DISPOSITION:PCU/ telemetry. Code:full code. Admission and Anticipated Discharge Date Admission Date: November 12, 2022 Subjective Patient seen in follow-up of chest pain, history of CAD, now status post PCI to RCA yesterday And today status post PCI to mid LAD Currently lying in bed, in no acute distress Denies any chest pain palpitations or shortness of breath No fevers chills abdominal pain nausea vomiting Review of Systems Review of Systems: All systems reviewed & are unremarkable except as noted in Subjective Physical Exam Physical Exam: GENERAL:morbidly obese M , not in acute distress. HEENT: Pupils equal, round and reactive to light. Oral mucosa moist. NECK: No JVD or neck masses. CARDIOVASCULAR: S1 and S2 heard. Regular rate and rhythm. No murmur, no gallop. RESPIRATORY SYSTEM: Normal AP diameter. No accessory muscle use. No wheezing or crackles. ABDOMEN: Soft, bowel sounds present, nontender, no distention. CENTRAL NERVOUS SYSTEM: Cranial nerves II through XII grossly intact. Nonfocal. EXTREMITIES: No edema, no erythema. Results & Data Results & Data Vital Signs (Past 12 Hours) Vital Signs Temp Pulse Pulse Resp BP Pulse Ox O2 Del Method 03/17/23 07:11 36.4 C L 64 14 124/78 96 Room Air 11/13/22 02:59 36.9 C 59 L 18 101/56 L 90 Room Air 11/13/22 00:01 58 L 11/12/22 23:20 36.7 C 60 18 153/75 H 95 Room Air 11/12/22 19:56 36.6 C 56 L 18 131/64 90 Room Air Laboratory Results 11/13/22 11/13/22 11/12/22 Range/Units 05:41 05:41 16:49 WBC 6.64 (4.8-10.8) K/ul RBC 5.34 (4.70-6.10) M/uL Hgb 15.7 (14.0-18.0) g/dl Hct 45.4 (42.0-52.0) % MCV 85.0 (80.0-100.0) fL MCH 29.4 (25.0-34.0) pg MCHC 34.6 (32.0-36.0) g/dL RDW Std Deviation 38.6 (36.4-46.3) fL RDW Coeff of Bennie 12.7 (11.5-14.5) % Plt Count 144 (130-400) K/uL MPV 10.0 (9.4-12.4) fL Activ Coag Time Kaolin (94-140) SECONDS Sodium 135 L (136-145) mmol/L Potassium 4.2 (3.5-5.1) mmol/L Chloride 106 (98-107) mmol/L Carbon Dioxide 25 (21-32) mmol/L Anion Gap 4 (3-11) BUN 17 (6-23) mg/dl Creatinine 0.99 (0.6-1.4) mg/dl Est Cr Clr Drug Dosing 112.3 ml/min Est GFR ( Amer) 99.0 ml/min Est GFR (Non-Af Amer) 85.4 ml/min BUN/Creatinine Ratio 17.2 (10-20) Glucose 97 (70-99(Fasting)) mg/dl Calcium 8.8 (8.5-10.1) mg/dl Phosphorus 3.3 (2.5-4.9) mg/dl Magnesium 2.1 (1.7-2.4) mg/dl Troponin I High Sens 32.6 H D (0-20) pg/ml 11/12/22 11/12/22 11/12/22 Range/Units 14:35 14:00 10:57 WBC (4.8-10.8) K/ul RBC (4.70-6.10) M/uL Hgb (14.0-18.0) g/dl Hct (42.0-52.0) % MCV (80.0-100.0) fL MCH (25.0-34.0) pg MCHC (32.0-36.0) g/dL RDW Std Deviation (36.4-46.3) fL RDW Coeff of Bennie (11.5-14.5) % Plt Count (130-400) K/uL MPV (9.4-12.4) fL Activ Coag Time Kaolin 215 H 179 H (94-140) SECONDS Sodium (136-145) mmol/L Potassium (3.5-5.1) mmol/L Chloride (98-107) mmol/L Carbon Dioxide (21-32) mmol/L Anion Gap (3-11) BUN (6-23) mg/dl Creatinine (0.6-1.4) mg/dl Est Cr Clr Drug Dosing ml/min Est GFR ( Amer) ml/min Est GFR (Non-Af Amer) ml/min BUN/Creatinine Ratio (10-20) Glucose (70-99(Fasting)) mg/dl Calcium (8.5-10.1) mg/dl Phosphorus (2.5-4.9) mg/dl Magnesium (1.7-2.4) mg/dl Troponin I High Sens 21.1 H (0-20) pg/ml Medications Administered Current Inpatient Medications Acetaminophen (Acetaminophen 325 Mg Tab) 650 mg PO Q4H PRN PRN Reason: Pain or Fever Stop: 12/12/22 02:19 Aspirin (Aspirin 81 Mg Ectab) 81 mg PO DAILY [facility] Stop: 12/12/22 08:59 Last Admin: 11/12/22 09:00 Dose: 81 mg Atorvastatin Calcium (Atorvastatin 40 Mg Tab) 80 mg PO DAILY [facility] Stop: 12/13/22 08:59 Bupropion HCl (Bupropion Sr 150 Mg Tabcr) 150 mg PO DAILY [facility] Stop: 12/12/22 08:59 Last Admin: 11/12/22 09:00 Dose: 150 mg Clopidogrel Bisulfate (Clopidogrel Bisulfate 75 Mg Tab) 75 mg PO DAILY [facility] Stop: 12/12/22 08:59 Last Admin: 11/12/22 09:01 Dose: 75 mg Cyclobenzaprine HCl (Cyclobenzaprine Hcl 10 Mg Tab) 10 mg PO TID [facility] Stop: 12/12/22 08:59 Last Admin: 11/12/22 21:15 Dose: 10 mg Furosemide (Furosemide 40 Mg Tab) 40 mg PO DAILY [facility] Stop: 12/12/22 08:59 Last Admin: 11/12/22 09:01 Dose: 40 mg Lisinopril (Lisinopril 20 Mg Tab) 20 mg PO DAILY [facility] Stop: 12/12/22 08:59 Last Admin: 11/12/22 09:00 Dose: 20 mg Miscellaneous (Remove Nicoderm Patch) 1 each N/A DAILY@0859 [facility] Stop: 12/13/22 08:58 Nicotine (Nicotine 21 Mg/24 Hr Tdsy) 21 mg TD QAM [facility] Stop: 12/12/22 03:59 Last Admin: 11/12/22 04:48 Dose: 21 mg Nitroglycerin (Nitroglycerin Sl 0.4 Mg/Tab Tab) 0.4 mg SL UD PRN PRN Reason: Chest Pain Stop: 12/12/22 02:19 Ondansetron HCl (Ondansetron Inj 2 Mg/Ml 2 Ml Vial) 4 mg IV Q6H PRN PRN Reason: Nausea Stop: 12/12/22 02:19 Potassium Chloride (Potassium Chloride Crtab 20 Meq Tabcr) 20 meq PO BID [facility] Stop: 12/12/22 08:59 Last Admin: 11/12/22 21:16 Dose: 20 meq
[2022-11-13] MEDS: ASPIRIN 81 MG ECTAB PO SCH (09:06)
[2022-11-13] MEDS: CLOPIDOGREL BISULFATE 75 MG TAB PO SCH (09:06)
[2022-11-13] MEDS: FUROSEMIDE 40 MG TAB PO SCH (09:06)
[2022-11-13] MEDS: ATORVASTATIN 40 MG TAB PO SCH (09:06)
[2022-11-13] MEDS: CYCLOBENZAPRINE HCL 10 MG TAB PO SCH ×3 (09:06→20:48)
[2022-11-13] MEDS: lisinopril 20 MG TAB PO SCH (09:06)
[2022-11-13] MEDS: buPROPion SR 150 MG TABCR PO SCH (09:06)
[2022-11-13] MEDS: POTASSIUM CHLORIDE CRTAB 20 MEQ TABCR PO SCH ×2 (09:06→20:48)
--- NOTE | 2022-11-13 13:14 | Cardiology Progress Note ---
Date of Service November 13, 2022 Assessment & Plan (1) Non-ST elevation (NSTEMI) myocardial infarction: (2) Peripheral vascular disease: (3) Tobacco use: (4) Hypertension: (5) Dyslipidemia, goal LDL below 70: Plan 57-year-old patient mated with NSTEMI s/p PCI RCA. Patient will return to electrical laboratory technician today for PCI of mid LAD. Continue aspirin, Plavix, FRANKLIN inhibitor and atorvastatin. Atorvastatin titrated to 80 mg daily during hospitalization. Hold furosemide pending review of a.m. labs 11/14/2022. Patient will remain n.p.o. at this time in anticipation of the procedure. Admission and Anticipated Discharge Date Admission Date: November 12, 2022 Subjective Patient seen examined the bedside. Feeling well this morning. No recurrent chest discomfort. RCA stent implanted yesterday without complication. Patient tolerated procedure well. 70% mid LAD, positive by FFR, with plans for PCI today. No dysrhythmias on telemetry. Review of Systems Review of Systems: All systems reviewed & are unremarkable except as noted in Subjective Physical Exam Constitutional: well nourished; no acute distress ENMT: Mallampati Class: III Respiratory: normal respiratory effort; no respiratory distress, no labored breathing and no retractions Auscultation: no crackles, no rales, no rhonchi and no wheezes Cardiovascular: Rate/Rhythm: regular rate and regular rhythm Heart Sounds: normal S1 and normal S2; no murmur Vessels: femoral pulses present and radial pulses present; no JVD and no carotid bruit Extremities: no edema Gastrointestinal (Abdomen): Inspection/Auscultation: abdomen normal to inspection and normal bowel sounds; abdomen not distended Percussion/Palpation: abdomen soft; abdomen nontender, no guarding and abdomen not rigid Neurologic: CN's II-XI intact bilaterally and moves all extremities; no focal motor deficits Psychiatric: A+Ox3, euthymic affect Results & Data Vital Signs (Past 12 Hours) Vital Signs Temp Pulse Resp BP Pulse Ox O2 Del Method 11/13/22 10:40 36.8 C 54 L 18 145/88 H 93 Room Air 11/13/22 07:11 36.4 C L 64 14 124/78 96 Room Air 11/13/22 02:59 36.9 C 59 L 18 101/56 L 90 Room Air
[2022-11-13] MEDS ORDERED: MIDAZOLAM HCL 1 MG/ML 2ML VIAL ONE (14:00)
[2022-11-13] MEDS ORDERED: niCARdipine HCL INJ 2.5 MG/ML 10 ML AMP ONE (14:00)
[2022-11-13] MEDS ORDERED: HEPARIN (PORCINE) 1000 UNIT/ML 10 ML (CATH LAB USE ONLY) ONE ×3 (14:00→14:55)
[2022-11-13] MEDS ORDERED: fentaNYL citrate PF 100 MCG/2 ML VIAL ONE (14:00)
[2022-11-13] MEDS ORDERED: NITROGLYCERIN/D5W 100MCG/ML 20ML SYR ONE (14:01)
--- NOTE | 2022-11-13 14:16 | Pre Anesthesia Assessment ---
Date of Service November 13, 2022 Pre Sedation Assessment Vital Signs Temp Pulse Pulse Resp BP BP Pulse Ox 11/13/22 13:50 58 L 20 105/61 94 11/13/22 10:40 98.2 F 54 L 18 145/88 H 93 11/13/22 07:11 97.5 F L 64 14 124/78 96 11/13/22 02:59 98.4 F 59 L 18 101/56 L 90 11/13/22 00:01 58 L 11/12/22 23:20 98.1 F 60 18 153/75 H 95 11/12/22 19:56 97.9 F 56 L 18 131/64 90 11/12/22 16:54 65 128/88 96 11/12/22 15:46 55 L 129/77 96 O2 Del Method 11/13/22 13:50 Room Air 11/13/22 10:40 Room Air 11/13/22 07:11 Room Air 11/13/22 02:59 Room Air 11/13/22 00:01 11/12/22 23:20 Room Air 11/12/22 19:56 Room Air 11/12/22 16:54 Room Air 11/12/22 15:46 Room Air Cardiovascular RRR, no murmur, no edema Respiratory normal respiratory effort, lungs clear to auscultation Pre-Sedation Airway Assessment Smoking Status: Current every day smoker Hx Sleep Apnea: No Hx Difficult Intubation: No Short, Thick Neck: Yes Thyromental Distance: > or= 3.5 Finger Breadths Oral Cavity: + WNL Mallampati Class: II ASA: ASA2 NPO Status Date of Last Intake of Fluids: 11/13/22 Time of Last Intake of Fluids: 11:00 Last Oral Intake of Fluids Comment: sip with med Date of Last Intake of Solid Food: 11/12/22 Time of Last Intake of Solid Foods: 21:00 Procedure Planning Contraindications for Sedation: none Current Medications Reviewed: Yes Notes The planned sedation has been discussed with the patient. Informed Consent was obtained. I have identified the patient, determined the appropriateness of sedation and have assessed the patient immediately prior to the procedure. All medicine(s) and interventions are by my order.
[2022-11-13] MEDS ORDERED: CLOPIDOGREL BISULFATE 300 MG TAB ONE (15:10)
[2022-11-13] MEDS ORDERED: LIDOCAINE 1% LOCAL 20 ML VIAL ONE (15:17)
[2022-11-13] MEDS: NICOTINE 21 MG/24 HR TDSY TD SCH (16:55)
--- NOTE | 2022-11-13 18:37 | Post Anesthesia Assessment ---
Date of Service November 13, 2022 Post Sedation Assessment Vital Signs Temp Pulse Pulse Resp BP BP Pulse Ox 11/13/22 17:50 61 18 105/66 94 11/13/22 17:16 52 L 18 132/69 89 L 11/13/22 16:00 97.7 F 57 L 18 113/82 96 11/13/22 15:10 57 L 16 116/64 92 11/13/22 13:50 58 L 20 105/61 94 11/13/22 10:40 98.2 F 54 L 18 145/88 H 93 11/13/22 07:11 97.5 F L 64 14 124/78 96 11/13/22 02:59 98.4 F 59 L 18 101/56 L 90 11/13/22 00:01 58 L 11/12/22 23:20 98.1 F 60 18 153/75 H 95 11/12/22 19:56 97.9 F 56 L 18 131/64 90 O2 Del Method 11/13/22 17:50 Room Air 11/13/22 17:16 Room Air 11/13/22 16:00 Room Air 11/13/22 15:10 Room Air 11/13/22 13:50 Room Air 11/13/22 10:40 Room Air 11/13/22 07:11 Room Air 11/13/22 02:59 Room Air 11/13/22 00:01 11/12/22 23:20 Room Air 11/12/22 19:56 Room Air Recovery Score Activity: Moves 4 extremities Respiration: Deep Breath/Cough Circulation: +/-20% PreAnes Value Consciousness: Arouseable (by name) Oxygen Saturation: > 92% On Room Air Discharge Sedation Level of Care: Fast Track Phase II Post Sedation Plan On clinical assessment, the patient appears to have tolerated the sedation without complications. Patient is recovering as anticipated. Patient will continue to be monitored by nursing and may be discharged when sedation discharge criteria are met per below protocol. Upon Completions of procedure up to 15 minutes continue every 5 minute vital signs and the P.A.R. score; then discharge to a Phase I or Fast Track to Phase II per the following guidelines: * Discharge Patient to appropriate Phase II area if PAR is 8 or greater or return to pre- procedure baseline. The post - procedure orders will be as directed. * If PAR score is less than 8 or not return to pre-procedure baseline then patient will follow Phase I monitoring till PAR is reached for Phase II. The Phase I may be done in procedure room or may call to secure a Phase I area. * If naloxone or flumazenil are used for reversal, hold in Phase I for continued monitoring from when last reversal dose was given for a minimum of 60 minutes or longer pending the nurse and/or physician discretion of patient condition before discharge to Phase II. Please call the Sedation Physician to re-evaluate and complete post-note for discharge to Phase II area. Do NOT discharge from procedure sedation or Phase 1 until post- sedation evaluation note is complete by procedure /sedation MD Sedation Discharge Instructions to be given to the patient at discharge to home.
--- NOTE | 2022-11-13 18:48 | Cardiac Catheterization ---
[facility] Data: Scaffold Builder Cardiac Status Clinical evaluation leading to the procedure CAD Presenation: Non STEMI Anginal Classification: CCS IV Diagnostic Physicians Name: Salazar Kaur MD Closure Device Recommendations: PCI without planned CABG (FFR LAD) Cardiac Cath Procedure Full Procedure Date November 13, 2022 Pre-Procedure Diagnosis Pre-Procedure Diagnosis: CAD AUC Score AUC Score: 8 Post-Procedure Diagnosis Post-Procedure Diagnosis: Severe CAD and Successful PCI Procedure(s) Performed Procedure(s) Performed: Coronary Angiography, Drug Eluting Stent and IVUS Pediatric Anesthesiologist Salazar Kaur MD Plate Put In Worker(s) [place] Estimated Blood Loss Estimated Blood Loss: 20 Medication(s) Medication(s): Clopidogrel, Fentanyl, Heparin, Lidocaine 1%, Nicardipine, Nitroglycerin and Versed Summary of Findings Indication: Staged PCI of mid LAD Access: 6 Fr right radial artery Catheters: JL 3.5 guide Findings: Patient underwent PCI of severe RCA disease yesterday with single drug-eluting stent. FFR of mid LAD lesion positive at 0.75. Today repeat angiography again revealed severe 70 to 80% mid LAD stenosis at bifurcation with medium diagonal. -- PCI -- Antithrombotic therapy: Heparin, clopidogrel Procedure: Left main cannulated with JL 3.5 guide Pre-procedure flow DALIA 3 BMW wire passed across lesion into first diagonal Mid LAD lesion predilated with 2.5 compliant balloon Grovespring IVUS catheter passed across lesion into mid vessel. Pullback revealed calcified severe disease at bifurcation and extending into proximal segment. No significant left main disease. Mid LAD stented with 3.0 x 22 mm Fracisco drug-eluting stent Stent postdilated with 4.0 NC balloon Post procedure IVUS showed well-expanded stent, well apposed with no apparent edge complications. IC vasodilators administered for spasm Jailed diagonal with severe ostial stenosis but DALIA-3 flow Post procedure DALIA 3 flow in well-expanded stent. Minimal residual stenosis and no apparent cardiac complications. Arterial Closure: TR band Summary: 1. Successful PCI of mid LAD with single drug-eluting stent (3.0 x 22 mm Fracisco; postdilated with 4.0 NC). Residual ostial stenosis of jailed diagonal but DALIA-3 flow Recommendations: To PCU for continued monitoring Reloaded with clopidogrel 300 mg in Scaffold Builder. Continue dual-antiplatelet therapy for at least 1 year Continue statin, and ASCVD risk factor modification Consult cardiac Rehab Medical management of residual CAD Hemodynamics Rest Ao:: 102//82 Final Ao: 101/68/107 LV: -- Recommendations Recommendations: PCI without planned CABG (FFR LAD) Specimens Specimens: None Radiation Exposure (mGy) 2141 Contrast (mls) 80 Drains Drains: N/A Anesthesia Moderate sedation. Start 1420. End 1505. Procedural Complication(s) None Disposition PCU I attest to the content of the Intraoperative Record and any orders documented therein. Any exceptions are noted below. [facility] Card Cath Procedure Codes Therapeutic Services & Ancillary Procedure 1: Cardiovascular Tx and Anc Procedures: 44633 IV Ultrasound (Coronary or Graft) Moderate Sedation Procedure 1: Sedation/Anesthesia: 31063 Mod Sedation by the same physician;Init15 Min Child Age 5 & Up Procedure 2: Sedation/Anesthesia: 63017 Mod Sedation by the same physician; Ea [id number] Minutes Stenting Procedure 1: Cardiovascular Stent Procedures: 83972 Perc transcatheter placement of intracoronary stent(s), with ang PG Care Time/CCT Total # of Minutes Spent Total Time Spent with Patient: Total time spent is greater than 50% in coordination of care (as documented) at patient's floor/unit and/or counseling patient:
--- NOTE | 2022-11-14 00:12 | Electrocardiogram Report ---
Test Reason : Blood Pressure : / mmHG Vent. Rate : 070 BPM Atrial Rate : 070 BPM P-R Int : 182 ms QRS Dur : 084 ms QT Int : 360 ms P-R-T Axes : 044 028 023 degrees QTc Int : 388 ms Normal sinus rhythm Normal ECG When compared with ECG of 30-OCT-2022 05:19, No significant change was found Confirmed by Dean Baca ([id number]) on 11/14/2022 12:11:54 AM Referred By: REFERRED SELF Confirmed By:Dean Baca
--- NOTE | 2022-11-14 00:19 | Electrocardiogram Report ---
Test Reason : Blood Pressure : / mmHG Vent. Rate : 060 BPM Atrial Rate : 060 BPM P-R Int : 150 ms QRS Dur : 084 ms QT Int : 414 ms P-R-T Axes : 048 014 028 degrees QTc Int : 414 ms Sinus rhythm When compared with ECG of 11-NOV-2022 21:51, No significant change Confirmed by Dean Baca ([id number]) on 11/14/2022 12:19:04 AM Referred By: REFERRED SELF Confirmed By:Dean Baca
--- NOTE | 2022-11-14 02:08 | Electrocardiogram Report ---
Test Reason : Blood Pressure : / mmHG Vent. Rate : 054 BPM Atrial Rate : 054 BPM P-R Int : 154 ms QRS Dur : 078 ms QT Int : 418 ms P-R-T Axes : 047 012 044 degrees QTc Int : 396 ms Sinus bradycardia Otherwise normal ECG When compared with ECG of 12-NOV-2022 05:35, No significant change Confirmed by Dean Baca ([id number]) on 11/14/2022 2:08:01 AM Referred By: REFERRED SELF Confirmed By:Dean Baca
--- NOTE | 2022-11-14 02:40 | Electrocardiogram Report ---
Test Reason : Blood Pressure : / mmHG Vent. Rate : 058 BPM Atrial Rate : 058 BPM P-R Int : 134 ms QRS Dur : 080 ms QT Int : 424 ms P-R-T Axes : 067 014 038 degrees QTc Int : 416 ms Sinus bradycardia Low voltage QRS Borderline ECG When compared with ECG of 13-NOV-2022 05:50, No significant change was found Confirmed by Dean Baca ([id number]) on 11/14/2022 2:40:01 AM Referred By: REFERRED SELF Confirmed By:Dean Baca
[2022-11-14 06:54] LABS: Hemoglobin 15.6 g/dl (14.0-18.0); Mean Corpuscular Hemoglobin 29.3 pg (25.0-34.0); Mean Corpuscular Hgb Conc 34.7 g/dL (32.0-36.0); Mean Corpuscular Volume 84.4 fL (80.0-100.0); Mean Platelet Volume 10.7 fL (9.4-12.4); Platelet Count 147 K/uL (130-400); RDW Coefficient of Variation 12.6 % (11.5-14.5); RDW Standard Deviation 38.8 fL (36.4-46.3); Red Blood Count 5.33 M/uL (4.70-6.10); White Blood Count 7.02 K/ul (4.8-10.8)
[2022-11-14 07:19] LABS: Calcium 8.5 mg/dl (8.5-10.1); Magnesium 2.2 mg/dl (1.7-2.4); Potassium 4.3 mmol/L (3.5-5.1)
[2022-11-14 07:25] LABS: Creatinine Clr Calc Pharmacy 111.6 ml/min; Est GFR (African American) 97.8 ml/min; Est GFR (Non-African American) 84.4 ml/min; Phosphorus 3.4 mg/dl (2.5-4.9)
--- NOTE | 2022-11-14 07:35 | Hospitalist Progress Note ---
Date of Service November 14, 2022 Assessment & Plan (1) Non-ST elevation (NSTEMI) myocardial infarction: (2) Elevated troponin: (3) Morbid obesity: Plan: This is a 57-year-old male, who presents with chest pain. 1. Chest pain. NSTEMI History of coronary artery disease, status post stent. Cardiology consulted - now status post PCI to RCA with single drug-eluting stent (11/12) and status post PCI to mid LAD with single drug-eluting (11/13/22) Residual ostial stenosis of jailed diagonal but DALIA-3 flow Continue dual-antiplatelet therapy for at least 1 year Continue statin - atorvastatin increased to 80 mg daily Smoking cessation encouraged. Weight loss encouraged. Further management as per Cardiology. Continue aspirin, Plavix, statin, FRANKLIN inh. 3. Hypertension. On lisinopril and diuretics.Hold diuretics. Monitor the blood pressure. 4. Obesity. Needs counseling. 5. Peripheral vascular disease. On aspirin, Plavix and statin. DVT prophylaxis:heparin given in cath lab radiology technician, scds DISPOSITION:PCU/ telemetry. Plan to DC home and f/u w/ PCP and cardiology Code:full code. Admission and Anticipated Discharge Date Admission Date: November 12, 2022 Subjective Patient seen in follow-up of chest pain, history of CAD, managed for NSTEMI now status post PCI to RCA and mid LAD Currently sitting up in chair, in no acute distress Denies any chest pain palpitations or shortness of breath No fevers chills abdominal pain nausea vomiting Review of Systems Review of Systems: All systems reviewed & are unremarkable except as noted in Subjective Physical Exam Physical Exam: GENERAL:morbidly obese M , not in acute distress. HEENT: NC/AT. Pupils equal, round and reactive to light. Oral mucosa moist. NECK: No JVD or neck masses. CARDIOVASCULAR: S1 and S2 heard. Regular rate and rhythm. No murmur, no gallop. RESPIRATORY: Normal AP diameter. No accessory muscle use. No wheezing or crackles. ABDOMEN: Soft, obese, bowel sounds present, nontender, no distention. NEURO:Awake alert oriented, answers questions appropriately, no facial asymmetry, speech fluent, moves extremities EXTREMITIES: No edema, no erythema. Results & Data Results & Data Vital Signs (Past 12 Hours) Vital Signs Temp Pulse Pulse Resp BP Pulse Ox O2 Del Method 03/18/23 06:59 36.6 C 58 L 18 124/73 92 Room Air 11/14/22 03:00 36.4 C L 55 L 20 92/53 L 91 Room Air 11/14/22 00:00 57 L 11/13/22 23:00 36.4 C L 57 L 18 144/71 H 96 Room Air 11/13/22 22:50 Nasal Cannula O2 Flow Rate 11/14/22 06:59 11/14/22 03:00 11/14/22 00:00 11/13/22 23:00 11/13/22 22:50 2 Laboratory Results 11/14/22 11/14/22 11/13/22 Range/Units 05:35 05:35 14:34 WBC 7.02 (4.8-10.8) K/ul RBC 5.33 (4.70-6.10) M/uL Hgb 15.6 (14.0-18.0) g/dl Hct 45.0 (42.0-52.0) % MCV 84.4 (80.0-100.0) fL MCH 29.3 (25.0-34.0) pg MCHC 34.7 (32.0-36.0) g/dL RDW Std Deviation 38.8 (36.4-46.3) fL RDW Coeff of Bennie 12.6 (11.5-14.5) % Plt Count 147 (130-400) K/uL MPV 10.7 (9.4-12.4) fL Activ Coag Time Kaolin 269 H (94-140) SECONDS Sodium 135 L (136-145) mmol/L Potassium 4.3 (3.5-5.1) mmol/L Chloride 104 (98-107) mmol/L Carbon Dioxide 26 (21-32) mmol/L Anion Gap 5 (3-11) BUN 16 (6-23) mg/dl Creatinine 1.00 (0.6-1.4) mg/dl Est Cr Clr Drug Dosing 111.6 ml/min Est GFR ( Amer) 97.8 ml/min Est GFR (Non-Af Amer) 84.4 ml/min BUN/Creatinine Ratio 16.0 (10-20) Glucose 97 (70-99(Fasting)) mg/dl Calcium 8.5 (8.5-10.1) mg/dl Phosphorus 3.4 (2.5-4.9) mg/dl Magnesium 2.2 (1.7-2.4) mg/dl Medications Administered Current Inpatient Medications Acetaminophen (Acetaminophen 325 Mg Tab) 650 mg PO Q4H PRN PRN Reason: Pain or Fever Stop: 12/12/22 02:19 Last Admin: 11/13/22 15:19 Dose: 650 mg Aspirin (Aspirin 81 Mg Ectab) 81 mg PO DAILY WILLY Stop: 12/12/22 08:59 Last Admin: 11/13/22 09:06 Dose: 81 mg Atorvastatin Calcium (Atorvastatin 40 Mg Tab) 80 mg PO DAILY WILLY Stop: 12/13/22 08:59 Last Admin: 11/13/22 09:06 Dose: 80 mg Bupropion HCl (Bupropion Sr 150 Mg Tabcr) 150 mg PO DAILY WILLY Stop: 12/12/22 08:59 Last Admin: 11/13/22 09:06 Dose: 150 mg Clopidogrel Bisulfate (Clopidogrel Bisulfate 75 Mg Tab) 75 mg PO DAILY WILLY Stop: 12/12/22 08:59 Last Admin: 11/13/22 09:06 Dose: 75 mg Cyclobenzaprine HCl (Cyclobenzaprine Hcl 10 Mg Tab) 10 mg PO TID WILLY Stop: 12/12/22 08:59 Last Admin: 11/13/22 20:48 Dose: 10 mg Furosemide (Furosemide 40 Mg Tab) 40 mg PO DAILY WILLY Stop: 12/12/22 08:59 Last Admin: 11/13/22 09:06 Dose: 40 mg Lisinopril (Lisinopril 20 Mg Tab) 20 mg PO DAILY WILLY Stop: 12/12/22 08:59 Last Admin: 11/13/22 09:06 Dose: 20 mg Miscellaneous (Remove Nicoderm Patch) 1 each N/A DAILY@0859 [facility] Stop: 12/13/22 08:58 Last Admin: 11/13/22 08:24 Dose: 1 each Nicotine (Nicotine 21 Mg/24 Hr Tdsy) 21 mg TD QAM WILLY Stop: 12/12/22 03:59 Last Admin: 11/13/22 16:55 Dose: Not Given Nitroglycerin (Nitroglycerin Sl 0.4 Mg/Tab Tab) 0.4 mg SL UD PRN PRN Reason: Chest Pain Stop: 12/12/22 02:19 Ondansetron HCl (Ondansetron Inj 2 Mg/Ml 2 Ml Vial) 4 mg IV Q6H PRN PRN Reason: Nausea Stop: 12/12/22 02:19 Potassium Chloride (Potassium Chloride Crtab 20 Meq Tabcr) 20 meq PO BID WILLY Stop: 12/12/22 08:59 Last Admin: 11/13/22 20:48 Dose: 20 meq
--- NOTE | 2022-11-14 07:41 | Electrocardiogram Report ---
Test Reason : Blood Pressure : / mmHG Vent. Rate : 059 BPM Atrial Rate : 059 BPM P-R Int : 148 ms QRS Dur : 090 ms QT Int : 420 ms P-R-T Axes : 054 010 017 degrees QTc Int : 415 ms Sinus bradycardia Otherwise normal ECG When compared with ECG of 13-NOV-2022 15:13, No significant change was found Confirmed by Salazar Rucker ([id number]) on 11/14/2022 7:41:18 AM Referred By: REFERRED SELF Confirmed By:Satya Rucker
[2022-11-14] MEDS: NICOTINE 21 MG/24 HR TDSY TD SCH (07:50)
[2022-11-14] MEDS: CLOPIDOGREL BISULFATE 75 MG TAB PO SCH (07:51)
[2022-11-14] MEDS: ATORVASTATIN 40 MG TAB PO SCH (07:51)
[2022-11-14] MEDS: ASPIRIN 81 MG ECTAB PO SCH (07:52)
[2022-11-14] MEDS: POTASSIUM CHLORIDE CRTAB 20 MEQ TABCR PO SCH (07:52)
[2022-11-14] MEDS: lisinopril 20 MG TAB PO SCH (07:52)
[2022-11-14] MEDS: CYCLOBENZAPRINE HCL 10 MG TAB PO SCH (07:52)
[2022-11-14] MEDS: buPROPion SR 150 MG TABCR PO SCH (07:52)
--- NOTE | 2022-11-14 10:38 | Discharge Summary ---
Date of Service November 14, 2022 Admission HPI Per Admitting Provider HISTORY OF PRESENT ILLNESS: This is a 57-year-old male with past medical history significant for hypertension, hyperlipidemia, history of CVA, history of CAD, status post stents, history of peripheral vascular disease, obesity, history of tobacco abuse, presents with chest pain. The patient was recently in the hospital for chest pain and also possible stroke and stroke workup was negative. Seen by feather maker with plan for outpatient dobutamine stress test. He also had Zio monitor as outpatient, but the monitor was not working properly and was sent back and he is waiting for the replacement. Presents with chest pain. The patient says since 5:00 p.m., he had noticed chest pain, discomfort, sharp pain in middle of chest and tightness in throat radiating to left arm which prompted him to come to the ER . Aspirin and nitro pain resolved. Currently, resting comfortably, hemodynamically stable. No fevers, no cough,, no nausea, no abdominal pain. Normal bowel and bladder movements. Hemodynamically stable. Admission Exam Per Admitting Provider GENERAL: The patient is morbidly obese, not in acute distress. VITAL SIGNS: Temperature 36.7, pulse 62, respiratory rate 20, blood pressure 148/70, oxygen 96% on room air. HEENT: Pupils equal, round and reactive to light. Oral mucosa moist. NECK: No JVD or neck masses. CARDIOVASCULAR: S1 and S2 heard. Regular rate and rhythm. No murmur, no gallop. RESPIRATORY SYSTEM: Normal AP diameter. No accessory muscle use. No wheezing or crackles. ABDOMEN: Soft, bowel sounds present, nontender, no distention. CENTRAL NERVOUS SYSTEM: Cranial nerves II through XII grossly intact. Nonfocal. EXTREMITIES: No edema, no erythema. Principal Diagnosis NSTEMI s/p stent to RCA and LAD Discharge Exam GENERAL:morbidly obese M , not in acute distress. HEENT: NC/AT. Pupils equal, round and reactive to light. Oral mucosa moist. NECK: No JVD or neck masses. CARDIOVASCULAR: S1 and S2 heard. Regular rate and rhythm. No murmur, no gallop. RESPIRATORY: Normal AP diameter. No accessory muscle use. No wheezing or crackles. ABDOMEN: Soft, obese, bowel sounds present, nontender, no distention. NEURO:Awake alert oriented, answers questions appropriately, no facial asymm etry, speech fluent, moves extremities EXTREMITIES: No edema, no erythema. Discharge Data Allergies Allergy/AdvReac Type Severity Reaction Status Date / Time No Known Allergies Allergy Verified 11/11/22 22:57 Consultations 11/11/22 23:02 ED Decision to Admit Stat 11/12/22 08:00 Consult Cardiology Routine Procedures Performed Operation Date: 11/13/22 14:00 Actual Procedures s Cineradiography w/Routine Exam - Rick Kaur MD p Drug Eluting Stent SGl Vessel - Rick Kaur MD Ordered Studies 11/12/22 09:14 CL Cath Imgs for PACS use only Routine 11/13/22 13:58 CL Cath Imgs for PACS use only Routine Hospital Course (1) Non-ST elevation (NSTEMI) myocardial infarction: (2) Elevated troponin: (3) Morbid obesity: This is a 57-year-old male, who presents with chest pain. 1. Chest pain. NSTEMI History of coronary artery disease, status post stent. Cardiology consulted - now status post PCI to RCA with single drug-eluting stent (11/12) and status post PCI to mid LAD with single drug-eluting (11/13/22) Residual ostial stenosis of jailed diagonal but DALIA-3 flow Continue dual-antiplatelet therapy for at least 1 year Continue statin - atorvastatin increased to 80 mg daily Smoking cessation encouraged. Weight loss encouraged. Further management as per Cardiology. Continue aspirin, Plavix, statin, FRANKLIN inh. 3. Hypertension. On lisinopril and diuretics. Monitor the blood pressure. 4. Obesity. Needs counseling. 5. Peripheral vascular disease. On aspirin, Plavix and statin. Total Time Total Time Spent Total Time Spent (In Minutes): 40 Discharge Plan Discharge Items Patient Disposition: Home - Self-Care Reason For Visit: CHEST PAIN, S/P CATH Discharge Diagnosis: NSTEMI s/p stent to RCA and LAD Activity: Per Instructions section Non-emergency contact: Primary Care Provider and Stores Despatch Hand Call non-emergency contact if: you have any medication questions and your symptoms worsen Follow-up/Referrals: Walter Little PA-C [Primary Care Provider] - Diet: Heart Healthy Add Attending Provider Instructions: Follow-up with your primary care doctor and feather maker. Make sure to take aspirin and Plavix every day. Your atorvastatin was increased to 80 mg daily. Continue your other heart medications as prescribed. It is strongly recommended that you quit smoking. Consider calling [employer] quit now, the free smoking cessation line, and/or discuss with your primary care physician. It is also strongly recommended that you try to lose weight. Your primary care provider can refer you to dietitian. Pending Studies at Discharge: No Stand-Alone Forms: My [facility], Smoking Cessation Medications and DC Order Prescriptions: New atorvastatin 40 mg Tablet 80 mg PO DAILY Qty: 30 0RF Continued cyclobenzaprine 10 mg tablet 10 mg PO TID furosemide [Lasix] 40 mg Tablet 40 mg PO DAILY bupropion HCl 150 mg tablet sustained-release 12 hr 150 mg PO DAILY lisinopril 20 mg tablet 20 mg PO DAILY clopidogrel 75 mg tablet 75 mg PO DAILY aspirin 81 mg tablet,delayed release (DR/EC) 81 mg PO DAILY potassium chloride 20 mEq tablet,ER particles/crystals 20 meq PO BID nitroglycerin [Nitrostat] 0.4 mg Tablet, Sublingual 0.4 mg sublingual DIRECTED PRN (Reason: Chest Pain) Discontinued atorvastatin 40 mg Tablet 40 mg PO DAILY Discharge Orders: Discharge Order (Routine); Ordered 11/14/22 Ordered By: Robin Doherty Admission Data Admit Date/Time: 11/12/22 12:48 Attending Provider: Robin Doherty Admit Provider: Parth Blackwell Primary Care Provider: Walter Little Other Providers: Parth Blackwell ; Britney Layton ; Bret Caceres ; Toni Newton ; Esvin Ghotra ; Troy Castano ; SammyDylon flores ; Sam Gómez ; Bree Reyes ; Valeria Sutherland ; Britney Thomas ; Eagle Hanley
--- NOTE | 2022-11-14 10:52 | Cardiology Progress Note ---
Date of Service November 14, 2022 Assessment & Plan (1) Non-ST elevation (NSTEMI) myocardial infarction: (2) Peripheral vascular disease: (3) Tobacco use: (4) Hypertension: (5) Dyslipidemia, goal LDL below 70: Plan 57-year-old patient mated with NSTEMI s/p PCI RCA, staged PCI of mid LAD. Continue aspirin, Plavix, FRANKLIN inhibitor and atorvastatin. Atorvastatin titrated to 80 mg daily during hospitalization. Resume furosemide continue all the therapy Discussed importance of dual antiplatelet therapy with Cardiac rehab indicated uncertain if patient wishes Will need close clinical follow-up with primary care and cardiology Admission and Anticipated Discharge Date Admission Date: November 12, 2022 Subjective Patient seen and examined, chart, medications, telemetry reviewed. No problems overnight. Ambulatory in room. No chest pains or discomfort. Radial access site healing well Review of Systems Review of Systems: All systems reviewed & are unremarkable except as noted in Subjective Physical Exam Constitutional: well nourished; no acute distress ENMT: Mallampati Class: III Respiratory: normal respiratory effort; no respiratory distress, no labored breathing and no retractions Auscultation: no crackles, no rales, no rhonchi and no wheezes Cardiovascular: Rate/Rhythm: regular rate and regular rhythm Heart Sounds: normal S1 and normal S2; no murmur Vessels: femoral pulses present and radial pulses present; no JVD and no carotid bruit Extremities: no edema Gastrointestinal (Abdomen): Inspection/Auscultation: abdomen normal to inspection and normal bowel sounds; abdomen not distended Percussion/Palpation: abdomen soft; abdomen nontender, no guarding and abdomen not rigid Neurologic: CN's II-XI intact bilaterally and moves all extremities; no focal motor deficits Psychiatric: A+Ox3, euthymic affect Results & Data Vital Signs (Past 12 Hours) Vital Signs Temp Pulse Pulse Resp BP Pulse Ox O2 Del Method 11/14/22 10:41 36.4 C L 60 16 170/75 H 93 Room Air 11/14/22 08:00 58 L 11/14/22 06:59 36.6 C 58 L 18 124/73 92 Room Air 11/14/22 03:00 36.4 C L 55 L 20 92/53 L 91 Room Air 11/14/22 00:00 57 L 11/13/22 23:00 36.4 C L 57 L 18 144/71 H 96 Room Air Laboratory Results Laboratory Results - last 24 hr 11/13/22 11/14/22 11/14/22 14:34 05:35 05:35 WBC 7.02 RBC 5.33 Hgb 15.6 Hct 45.0 MCV 84.4 MCH 29.3 MCHC 34.7 RDW Std Deviation 38.8 RDW Coeff of Bennie 12.6 Plt Count 147 MPV 10.7 Activ Coag Time Kaolin 269 H Sodium 135 L Potassium 4.3 Chloride 104 Carbon Dioxide 26 Anion Gap 5 BUN 16 Creatinine 1.00 Est Cr Clr Drug Dosing 111.6 Est GFR ( Amer) 97.8 Est GFR (Non-Af Amer) 84.4 BUN/Creatinine Ratio 16.0 Glucose 97 Calcium 8.5 Phosphorus 3.4 Magnesium 2.2
== END 2022-11-14 11:37 | disposition home or self-care (01) | DRG 247 ==
LOC: 2S 21:43 → ED 21:43 → 2S 11-12 02:01 → 2N 11-12 08:12 → 2E 11-12 15:17

== ENCOUNTER 2025-01-27 20:57 | Inpatient (IN) ==
[2025-01-27] MEDS: dilTIAZem HCl 5 MG/ML 5 ML VIAL IV STA ×2 (21:10→21:20)
[2025-01-27] MEDS: LORazepam 2 MG/1 ML VIAL IV STA (21:15)
[2025-01-27] MEDS ORDERED: STAT IV Infusion **Titration per Protocol STA (21:20)
[2025-01-27] MEDS: SODIUM CHLORIDE 0.9% 1,000 ML IV SCH (21:29)
[2025-01-27] MEDS: dilTIAZem HCl 5 MG/ML 5 ML VIAL IV ONE (21:30)
[2025-01-27] MEDS: LORazepam 2 MG/1 ML VIAL ONE (21:31)
[2025-01-27] MEDS: ASPIRIN 81 MG CHEW PO STA (21:32)
[2025-01-27] MEDS: ASPIRIN CHEW 324 MG PO ONE (21:32)
[2025-01-27 21:36] LABS: BUN Creatinine Ratio 13.3 (10-20); Calcium 9.6 mg/dl (8.6-10.3); Creatinine Clr Calc Pharmacy 109.9 ml/min; Magnesium 2.1 mg/dl (1.7-2.4); Potassium 3.6 mmol/L (3.5-5.1)
[2025-01-27] MEDS: OPTIRAY 320 125ml IV ONE (21:37)
[2025-01-27 21:40] LABS: iSTAT Creatinine 0.9 mg/dl (0.6-1.3); iSTAT Hemoglobin 16.7 g/dl (14.0-18.0); iSTAT Ionized Calcium 1.17 mmol/l (1.12-1.32)
[2025-01-27 21:43] LABS: Troponin I High Sensitivity 15.8 pg/ml (0-20)
[2025-01-27] MEDS: dilTIAZem HCL 125 MG in DEXTROSE 5% 100 ML IV SCH (21:43)
[2025-01-27 22:00] LABS: Basophils # (auto) 0.05 K/uL (0.00-0.20); Basophils % (auto) 0.6 %; Eosinophils # (auto) 0.35 K/uL (0.00-0.50); Eosinophils % (auto) 4.1 %; Hematocrit (blood only) 51.7 % (42.0-52.0); Hemoglobin 17.7 g/dl (14.0-18.0); Immature Granulocytes # (auto) 0.03 K/uL (0.01-0.20); Immature Granulocytes % (auto) 0.4 %; Lymphocytes # (auto) 2.96 K/uL (1.20-3.40); Lymphocytes % (auto) 34.5 %; Mean Corpuscular Hemoglobin 29.4 pg (25.0-34.0); Mean Corpuscular Hgb Conc 34.2 g/dL (32.0-36.0); Mean Corpuscular Volume 85.7 fL (80.0-100.0); Mean Platelet Volume 10.9 fL (9.4-12.4); Monocytes # (auto) 0.86 K/uL (0.11-0.59); Neutrophils # (auto) 4.32 K/uL (1.40-6.50); Neutrophils % (auto) 50.4 %; Platelet Count 163 K/uL (130-400); RDW Coefficient of Variation 13.4 % (11.5-14.5); RDW Standard Deviation 41.3 fL (36.4-46.3); Red Blood Count 6.03 M/uL (4.70-6.10); White Blood Count 8.57 K/ul (4.8-10.8)
--- NOTE | 2025-01-27 22:07 | CT Scan Report ---
Exam(s): CTA CHEST IV Amt: 117ml EXAM: CT Angiography Chest With Intravenous Contrast CLINICAL HISTORY: Reason for exam: Chest Pain, eval for PE. TECHNIQUE: Axial computed tomographic angiography images of the chest with intravenous contrast. CTDI is 28 mGy and DLP is 922 mGy-cm. Automated exposure control was utilized for the study. A dose lowering technique was utilized adhering to the principles of ALARA. MIP reconstructed images were created and reviewed. COMPARISON: No relevant prior studies available. FINDINGS: Pulmonary arteries: Unremarkable. No pulmonary embolism. Aorta: No acute findings. No thoracic aortic aneurysm. Lungs: Unremarkable. No mass. No consolidation. Pleural space: Unremarkable. No significant effusion. No pneumothorax. Heart: Coronary artery calcifications. No cardiomegaly. No significant pericardial effusion. No evidence of RV dysfunction. Bones/joints: No acute fracture. No dislocation. Soft tissues: Unremarkable. Lymph nodes: Unremarkable. No enlarged lymph nodes. IMPRESSION: No acute findings in the visualized arteries of the chest. Electronically signed by: Britton Cruz MD 01/27/25 22:06 PM
[2025-01-27 22:41] LABS: Partial Thromboplastin Time 26 Seconds (21-31); Prothrombin Time 10.9 Seconds (9.0-12.0)
[2025-01-27] MEDS: HEPARIN 25000 UNIT/500 ML D5W 25,000 UNITS/500 ML BAG IV SCH (23:04)
[2025-01-27] MEDS: HEPARIN SOD (PORCINE) 1000 UNIT/ML IV ONE (23:05)
[2025-01-27] MEDS: Heparin IV Adult Wt-Based Low-Dose w/ INITIAL Bolus Protocol IV STA (23:05)
--- NOTE | 2025-01-27 23:05 | History & Physical Report ---
Date of Service January 27, 2025 Assessment & Plan (1) Non-ST elevation (NSTEMI) myocardial infarction: Plan: Assessment and plan below following discussion of case with ED provider and reviewing patient history/pertinent normal/abnormal diagnostic test results. NSTEMI hx multivessel CAD status post stent (2016, 2022, 2023) History medication noncompliance Hypertension, elevated secondary to above New onset A-fib secondary to above PVD status post stent hyperlipidemia, statin noncompliance mild bradycardia as per records history of CVA MARIVEL (not on CPAP) Hyperglycemia rule out DM Transient tingling fingers right hand, possible carpal tunnel syndrome illiteracy ongoing tobacco abuse Admit to PCU Continue home aspirin Rx Cautious initiation of beta-jayne given history of bradycardia Wean off Cardizem infusion Continue IV heparin Resume previous lisinopril and statin Rx Retrieve records from [place], [place] admission from last year. Follow troponin TTE, Cardiology consult re: ACS, new onset A-fib N.p.o. in anticipation of ischemic workup Update lipid profile Check hemoglobin A1c Outpatient electrodiagnostic testing for possible CTS Nicotine patch DVT prophylaxis Heparin Full code Text document was generated using [employer] voice recognition software. It may contain grammatical or spelling errors. Kindly contact undersigned for clarification of any documentation item in question. History of Present Illness Chief Complaint: Chest pain Primary Care Provider: Walter Little PA-C History obtained from patient and records. Medical history significant for multivessel CAD status post stent (2016, 2022, 2023), PVD status post stent, hypertension, hyperlipidemia, mild bradycardia as per records, history of CVA, MARIVEL (not on CPAP) illiteracy, ongoing tobacco abuse. Last [facility] confinement October 2022 for NSTEMI status post RCA and LAD stent placement. Patient later moved to [place]. Patient confined at [facility] in [place], [place] last April 2024 for ACS status post stent placement. Patient later unable to take home medications the last 6 months due to insurance issues. Patient relocated back to [place], [place] from [place] few days ago. Patient had achy left-sided chest pain with radiation to the arm a few hours ago. Episode similar to past episode. Some SOB with chronic smoker's cough symptoms. Patient later noted palpitations. Transient tingling sensation on middle fingers of right hand without headache or neck pain symptoms which has happened before. Patient noted to be in rapid A-fib upon arrival at the ER. SBP 170s, Heart rate 1 20-1 40s. Discomfort relieved by nitroglycerin administration at the ER. IV Cardizem and heparin infusions initiated at the ER. Medical History as above Surgical History : Vascular procedures, appendectomy Family History : Heart disease, DM, DVT Personal/Social history : 1/2 pack daily, rare EtOH intake, currently unemployed Allergies Allergy/AdvReac Type Severity Reaction Status Date / Time No Known Allergies Allergy Verified 01/27/25 22:54 Home Medications Medication Instructions Recorded Confirmed Type aspirin 81 mg tablet,delayed 81 mg PO HS 03/03/22 01/27/25 History release bupropion HCl 150 mg tablet,12 hr 150 mg PO HS 03/03/22 01/27/25 History sustained-release clopidogrel 75 mg tablet 75 mg PO HS 03/03/22 01/27/25 History lisinopril 20 mg tablet 20 mg PO HS 03/03/22 01/27/25 History nitroglycerin 0.4 mg sublingual 0.4 mg sublingual DIRECTED PRN 03/03/22 01/27/25 History tablet (Nitrostat) Chest Pain potassium chloride 20 mEq 20 meq PO BID 03/03/22 01/27/25 History tablet,extended release(part/cryst) furosemide 40 mg tablet (Lasix) 40 mg PO HS 10/29/22 01/27/25 History atorvastatin 40 mg tablet 80 mg PO HS 03/07/23 01/27/25 History sumatriptan succinate 25 mg tablet 25 mg PO DIRECTED PRN Migraine 03/07/23 01/27/25 History Headache albuterol sulfate 90 mcg/actuation 2 puff inhalation Q4 PRN Shortness 03/14/23 01/27/25 History aerosol inhaler Of Breath Or Wheezing tiotropium bromide 2.5 2 puff inhalation DAILY 03/14/23 01/27/25 History mcg/actuation mist for inhalation (Spiriva Respimat) Past Med/Surg History Problem List (Updated 01/28/25 @ 05:36 by Binu Stephens MD) Non-ST elevation (NSTEMI) myocardial infarction Atrial fibrillation with RVR (Acute) Elevated troponin (Acute) Tobacco use (Acute) History of CVA (cerebrovascular accident) Left-sided headache (Acute) Left facial swelling (Acute) Chest pain (Acute) Dyslipidemia (Chronic) Medical History Afib Dyslipidemia, goal LDL below 70 Non-ST elevation (NSTEMI) myocardial infarction Morbid obesity Hypertension Peripheral vascular disease Coronary artery disease "s/p PCI" Surgical History Status post coronary artery stent placement Status post appendectomy Social History Smoking Status: Current every day smoker Tobacco Type: Cigarettes Second Hand Exposure: No; Do You Dip or Chew Tobacco: No; Hx Alcohol Use: Yes Alcohol type: beer Hx Substance Use: No Preferred Language: Bahraini Communication Ability: Effective Communication Ability Comment: Pt states he can only sign his name. 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 Beliefs That Will Affect Care: None Current Living Situation: Family Current Living Situation Comment: Brother and [id number] Feels Safe at Home: Yes Assistive Devices: None Review of Systems Review of Systems: As per HPI, all other systems reviewed and negative Physical Exam Physical Exam: GENERAL: Comfortable, pleasant, morbidly obese, no respiratory distress SKIN: Normal color, warm HEENT: [place] palpebral conjunctivae, no ptosis, dry buccal mucosa NECK : Supple, short neck, no tenderness CHEST : Decreased breath sounds, no tenderness HEART : Irregular, no obvious murmurs ABDOMEN: Some distention, nontender EXTREMITIES : No LE swelling/tenderness, palpable pulses, no other conspicuous deformities noted NEUROLOGIC : Coherent, no facial asymmetry, no other gross focality Results & Data Results & Data Vital Signs (Past 12 Hours) Vital Signs Temp Pulse Pulse Resp BP BP Pulse Ox 01/27/25 22:45 108 H 26 H 115/83 95 01/27/25 22:30 127 H 18 129/89 95 01/27/25 22:15 121 H 21 138/108 H 94 01/27/25 22:02 103 H 25 H 125/69 01/27/25 21:47 114 H 23 114/88 94 01/27/25 21:31 114 H 21 108/79 95 01/27/25 21:22 124 H 01/27/25 21:19 128/92 01/27/25 21:18 131 H 21 97 01/27/25 21:15 105/77 01/27/25 21:15 142 H 19 97 01/27/25 21:15 138 H 19 96 01/27/25 21:07 132/92 01/27/25 20:59 36.5 C 129 H 20 172/98 H 97 O2 Del Method 01/27/25 22:45 01/27/25 22:30 Room Air 01/27/25 22:15 01/27/25 22:02 01/27/25 21:47 01/27/25 21:31 01/27/25 21:22 01/27/25 21:19 01/27/25 21:18 01/27/25 21:15 01/27/25 21:15 01/27/25 21:15 Room Air 01/27/25 21:07 01/27/25 20:59 Room Air Laboratory Results Laboratory Results WBC 8.57 K/ul (4.8-10.8) 01/27/25 21:06 RBC 6.03 M/uL (4.70-6.10) 01/27/25 21:06 Hgb 17.7 g/dl (14.0-18.0) 01/27/25 21:06 POC Hgb 16.7 g/dl (14.0-18.0) 01/27/25 21: Hct 51.7 % (42.0-52.0) 01/27/25 21:06 POC Hct 49 % (42-52) 01/27/25 21: MCV 85.7 fL (80.0-100.0) 01/27/25 21:06 MCH 29.4 pg (25.0-34.0) 01/27/25 21:06 MCHC 34.2 g/dL (32.0-36.0) 01/27/25 21:06 RDW Std Deviation 41.3 fL (36.4-46.3) 01/27/25 21:06 RDW Coeff of Bennie 13.4 % (11.5-14.5) 01/27/25 21:06 Plt Count 163 K/uL (130-400) 01/27/25 21:06 MPV 10.9 fL (9.4-12.4) 01/27/25 21:06 Immature Gran % (Auto) 0.4 % 01/27/25 21:06 Neut % (Auto) 50.4 % 01/27/25 21:06 Lymph % (Auto) 34.5 % 01/27/25 21:06 [place] % (Auto) 10.0 % 01/27/25 21:06 Eos % (Auto) 4.1 % 01/27/25 21:06 Baso % (Auto) 0.6 % 01/27/25 21:06 Neut # (Auto) 4.32 K/uL (1.40-6.50) 01/27/25 21:06 Lymph # (Auto) 2.96 K/uL (1.20-3.40) 01/27/25 21:06 [place] # (Auto) 0.86 K/uL (0.11-0.59) H 01/27/25 21:06 Eos # (Auto) 0.35 K/uL (0.00-0.50) 01/27/25 21:06 Baso # (Auto) 0.05 K/uL (0.00-0.20) 01/27/25 21:06 Immature Gran # (Auto) 0.03 K/uL (0.01-0.20) 01/27/25 21:06 PT 10.9 Seconds (9.0-12.0) 01/27/25 21:06 INR 1.0 (0.9-1.1) 01/27/25 21:06 APTT 26 Seconds (21-31) 01/27/25 21:06 PTT Ratio 1.0 01/27/25 21:06 POC Sodium 141 mmol/L (135-144) 01/27/25 21:27 Sodium 141 mmol/L (136-145) 01/27/25 21:06 POC Potassium 4.0 mmol/L (3.3-5.0) 01/27/25 21:27 Potassium 3.6 mmol/L (3.5-5.1) 01/27/25 21:06 POC Chloride 105 mmol/L (101-112) 01/27/25 21: Chloride 104 mmol/L (98-107) 01/27/25 21:06 Carbon Dioxide 29 mmol/L (21-32) 01/27/25 21:06 POC Total CO2 27 mmol/L (24-31) 01/27/25 21:27 Anion Gap 8 (3-11) 01/27/25 21:06 POC Anion Gap 15.0 mmol/L (16-25) L 01/27/25 21:27 POC BUN 13 mg/dl (7-18) 01/27/25 21: BUN 13 mg/dl (6-23) 01/27/25 21:06 Creatinine 0.98 mg/dl (0.6-1.4) 01/27/25 21:06 POC Creatinine 0.9 mg/dl (0.6-1.3) 01/27/25 21:27 Est Cr Clr Drug Dosing 109.9 ml/min 01/27/25 21:06 eGFR 89.94 01/27/25 21:06 BUN/Creatinine Ratio 13.3 (10-20) 01/27/25 21:06 Glucose 113 mg/dl (70-99(Fasting)) H 01/27/25 21:06 POC Glucose (other) 125 mg/dl (70-99) H 01/27/25 21:27 Calcium 9.6 mg/dl (8.6-10.3) 01/27/25 21:06 POC Ioniz Calcium Margo 1.17 mmol/l (1.12-1.32) 01/27/25 21: Magnesium 2.1 mg/dl (1.7-2.4) 01/27/25 21:06 Troponin I High Sens 15.8 pg/ml (0-20) 01/27/25 21: Lipase 19 U/L (11-82) 01/27/25 21:06 Impressions Chest CTA 01/27/25 21:09 Exam(s): CTA CHEST IV Amt: 117ml EXAM: CT Angiography Chest With Intravenous Contrast CLINICAL HISTORY: Reason for exam: Chest Pain, eval for PE. TECHNIQUE: Axial computed tomographic angiography images of the chest with intravenous contrast. CTDI is 28 mGy and DLP is 922 mGy-cm. Automated exposure control was utilized for the study. A dose lowering technique was utilized adhering to the principles of ALARA. MIP reconstructed images were created and reviewed. COMPARISON: No relevant prior studies available. FINDINGS: Pulmonary arteries: Unremarkable. No pulmonary embolism. Aorta: No acute findings. No thoracic aortic aneurysm. Lungs: Unremarkable. No mass. No consolidation. Pleural space: Unremarkable. No significant effusion. No pneumothorax. Heart: Coronary artery calcifications. No cardiomegaly. No significant pericardial effusion. No evidence of RV dysfunction. Bones/joints: No acute fracture. No dislocation. Soft tissues: Unremarkable. Lymph nodes: Unremarkable. No enlarged lymph nodes. IMPRESSION: No acute findings in the visualized arteries of the chest. Electronically signed by: Britton Cruz MD 01/27/25 22:06 PM Diagnostic Findings EKG as per my interpretation :Rate 150, A-fib, normal axis, ST depression anterolateral leads
[2025-01-27 23:40] LABS: Thyroid Stimulating Hormone 2.764 uIu/ml (0.300-4.500)
[2025-01-27] MEDS: POTASSIUM CHLORIDE CRTAB 20 MEQ TABCR PO STA (23:45)
[2025-01-27] MEDS ORDERED: MoRPHine SULFATE 4 MG/ML 1 ML CARP\\VIAL IV PRN (23:49)
[2025-01-27] MEDS ORDERED: LORazepam 0.5 MG TAB PO PRN (23:49)
[2025-01-27] MEDS ORDERED: PROMETHAZINE 12.5 MG/50.5 ML BAG IV PRN (23:49)
--- NOTE | 2025-01-28 00:07 | XRay Report ---
Exam(s): XR CXR 1 VIEW EXAM: XR Chest, 1 View CLINICAL HISTORY: Reason for exam: Chest pain, nonspecific. TECHNIQUE: Frontal view of the chest. COMPARISON: 03/14/2020 FINDINGS: Lungs: Mild pulmonary vascular congestion. No consolidation. Pleural space: Unremarkable. No pneumothorax. Heart: Cardiomegaly. Mediastinum: Unremarkable. Normal mediastinal contour. Bones/joints: Unremarkable. No acute fracture. IMPRESSION: Cardiomegaly with mild pulmonary vascular congestion Electronically signed by: Britton Cruz MD 01/28/25 00:06 AM
[2025-01-28] MEDS: DIGOXIN 250 MCG in SYRINGE 9 ML IV STA (00:21)
--- NOTE | 2025-01-28 00:29 | Emergency Department Note ---
History of Present Illness General Chief Complaint: Chest Pain Stated Complaint: CHEST PAIN, SOB Time Seen by Provider: 01/27/25 21:09 History of Present Illness Provider Complaint: + palpitations Onset (ago): 1 hour(s) Duration: + Constant Severity: similar to previous episodes Maximum Pain Intensity: 10 Context: + occurred during rest Arrhythmia history: + atrial fibrillation Associated symptoms: + chest pain; no shortness of breath or no syncope HPI narrative: Patient reports he just recently returned from [place] and has not been taking any of his heart medications for the last 6 months. Patient denies any drug or cocaine usage. Home Medications Medication Instructions Recorded Confirmed Type aspirin 81 mg tablet,delayed 81 mg PO HS 03/03/22 01/27/25 History release bupropion HCl 150 mg tablet,12 hr 150 mg PO HS 03/03/22 01/27/25 History sustained-release clopidogrel 75 mg tablet 75 mg PO HS 03/03/22 01/27/25 History lisinopril 20 mg tablet 20 mg PO HS 03/03/22 01/27/25 History nitroglycerin 0.4 mg sublingual 0.4 mg sublingual DIRECTED PRN 03/03/22 01/27/25 History tablet (Nitrostat) Chest Pain potassium chloride 20 mEq 20 meq PO BID 03/03/22 01/27/25 History tablet,extended release(part/cryst) furosemide 40 mg tablet (Lasix) 40 mg PO HS 10/29/22 01/27/25 History atorvastatin 40 mg tablet 80 mg PO HS 03/07/23 01/27/25 History sumatriptan succinate 25 mg tablet 25 mg PO DIRECTED PRN Migraine 03/07/23 01/27/25 History Headache albuterol sulfate 90 mcg/actuation 2 puff inhalation Q4 PRN Shortness 03/14/23 01/27/25 History aerosol inhaler Of Breath Or Wheezing tiotropium bromide 2.5 2 puff inhalation DAILY 03/14/23 01/27/25 History mcg/actuation mist for inhalation (Spiriva Respimat) Allergies Allergy/AdvReac Type Severity Reaction Status Date / Time No Known Allergies Allergy Verified 01/27/25 22:54 Past Med/Surg History Problem List (Updated 01/28/25 @ 00:28 by Maximo Hardy MD) Atrial fibrillation with RVR (Acute) Elevated troponin (Acute) Tobacco use (Acute) History of CVA (cerebrovascular accident) Left-sided headache (Acute) Left facial swelling (Acute) Chest pain (Acute) Dyslipidemia (Chronic) Medical History Afib Dyslipidemia, goal LDL below 70 Non-ST elevation (NSTEMI) myocardial infarction Morbid obesity Hypertension Peripheral vascular disease Coronary artery disease "s/p PCI" Surgical History Status post coronary artery stent placement Status post appendectomy Social History Smoking Status: Current every day smoker Tobacco Type: Cigarettes Second Hand Exposure: No; Do You Dip or Chew Tobacco: No; Hx Alcohol Use: Yes Alcohol type: beer Hx Substance Use: No Preferred Language: Maori Communication Ability: Effective Communication Ability Comment: Pt states he can only sign his name. Auto Phone Installer Required: No Beliefs That Will Affect Care: None Current Living Situation: Family Current Living Situation Comment: Brother and [id number] Feels Safe at Home: Yes Assistive Devices: None Physical Exam 2 Vital Signs: Vital Signs - 24 hr 01/27/25 20:59 01/27/25 21:07 01/27/25 21:15 Temperature 36.5 C Temperature Source Temporal Artery Sc an Pulse Rate 129 H 138 H Pulse Rate [Apical ] Pulse Rate from Sp O2 Sensor Respiratory Rate 20 19 Respiratory Effort / Characteristics Non-Labored Sponta neous Respiratory Depth Normal Respiratory Patter n Regular Blood Pressure 172/98 H 132/92 Blood Pressure [Ri ght Arm] Blood Pressure Linda n 122 104 Blood Pressure Linda n [Right Arm] Pulse Oximetry 97 96 Oxygen Delivery Me thod Room Air Room Air Sepsis Recent Feve r Within 48 Hours No Sepsis New/Unexpla ined Change in Men renate Status N/A Sepsis Action Take n by Nursing No Action Required 01/27/25 21:15 01/27/25 21:15 01/27/25 21:18 Temperature Temperature Source Pulse Rate 142 H 131 H Pulse Rate [Apical ] Pulse Rate from Sp O2 Sensor 138 H 134 H Respiratory Rate 19 21 Respiratory Effort / Characteristics Respiratory Depth Respiratory Patter n Blood Pressure 105/77 Blood Pressure [Ri ght Arm] Blood Pressure Linda n 89 Blood Pressure Linda n [Right Arm] Pulse Oximetry 97 97 Oxygen Delivery Me thod Sepsis Recent Feve r Within 48 Hours Sepsis New/Unexpla ined Change in Men renate Status Sepsis Action Take n by Nursing 01/27/25 21:19 01/27/25 21:22 01/27/25 21:31 Temperature Temperature Source Pulse Rate 124 H 114 H Pulse Rate [Apical ] Pulse Rate from Sp O2 Sensor Respiratory Rate 21 Respiratory Effort / Characteristics Respiratory Depth Respiratory Patter n Blood Pressure 128/92 108/79 Blood Pressure [Ri ght Arm] Blood Pressure Linda n 96 91 Blood Pressure Linda n [Right Arm] Pulse Oximetry 95 Oxygen Delivery Me thod Sepsis Recent Feve r Within 48 Hours Sepsis New/Unexpla ined Change in Men renate Status Sepsis Action Take n by Nursing 01/27/25 21:47 01/27/25 22:02 01/27/25 22:15 Temperature Temperature Source Pulse Rate 114 H 103 H 121 H Pulse Rate [Apical ] Pulse Rate from Sp O2 Sensor Respiratory Rate 23 25 H 21 Respiratory Effort / Characteristics Respiratory Depth Respiratory Patter n Blood Pressure 114/88 125/69 138/108 H Blood Pressure [Ri ght Arm] Blood Pressure Linda n 94 89 109 Blood Pressure Linda n [Right Arm] Pulse Oximetry 94 94 Oxygen Delivery Me thod Sepsis Recent Feve r Within 48 Hours Sepsis New/Unexpla ined Change in Men renate Status Sepsis Action Take n by Nursing 01/27/25 22:30 01/27/25 22:45 01/27/25 23:01 Temperature Temperature Source Pulse Rate 108 H 102 H Pulse Rate [Apical ] 127 H Pulse Rate from Sp O2 Sensor Respiratory Rate 18 26 H 20 Respiratory Effort / Characteristics Non-Labored Sponta neous Respiratory Depth Normal Respiratory Patter n Blood Pressure 115/83 123/85 Blood Pressure [Ri ght Arm] 129/89 Blood Pressure Linda n 96 96 Blood Pressure Linda n [Right Arm] 102 Pulse Oximetry 95 95 94 Oxygen Delivery Me thod Room Air Room Air Sepsis Recent Feve r Within 48 Hours Sepsis New/Unexpla ined Change in Men renate Status Sepsis Action Take n by Nursing 01/27/25 23:16 01/27/25 23:31 01/27/25 23:46 Temperature Temperature Source Pulse Rate 112 H 109 H Pulse Rate [Apical ] Pulse Rate from Sp O2 Sensor Respiratory Rate 20 20 Respiratory Effort / Characteristics Respiratory Depth Respiratory Patter n Blood Pressure 115/65 99/72 L 102/66 Blood Pressure [Ri ght Arm] Blood Pressure Linda n 88 79 68 Blood Pressure Linda n [Right Arm] Pulse Oximetry 97 91 Oxygen Delivery Me thod Room Air Room Air Sepsis Recent Feve r Within 48 Hours Sepsis New/Unexpla ined Change in Men renate Status Sepsis Action Take n by Nursing Physical Exam: Physical Exam HENT: Exam performed. - Head: Normocephalic and atraumatic. EYES: Conjunctivae and EOM are normal. Right eye exhibits no discharge. Left eye exhibits no discharge. No scleral icterus. NECK: Normal range of motion. Neck supple. No JVD present. CV: Tachycardic rate, irregular rhythm, normal heart sounds and intact distal pulses. There is no peripheral edema. Palpable radial pulses bue. PULM/CHEST: Effort normal and breath sounds normal. No respiratory distress. No stridor. no wheezes. no rales. ABD: The abdomen is soft. There is no tenderness. NEURO: Motor and sensation grossly intact. Course Course 2108: The patient was evaluated in room C4. A complete history and physical exam was performed Cardiac monitoring: An order was placed for continuous cardiac monitoring. The monitor shows a rate of 150-170 with atrial fibrilation rhythm interpreted by me Large-bore IV access was obtained. Cardizem 20 mg IV push was administered. Patient's ventricular rate improved into the 130-150 rate. IV fluids were started on the patient. Ativan was ordered for the patient. A repeat dose of Cardizem 25 mg IV push was given to the patient and the patient's ventricular rate improved to the 100-0120 range. After the second bolus of Cardizem the patient reports that his chest pain is improved. Aspirin ordered for the patient. Patient be started on Cardizem drip. Patient states he is not sure if he used to take blood thinners. Will obtain CT of the chest to rule out PE. 2244: Vital signs stable on Cardizem drip. Labs and imaging are unremarkable. [id number] score is 2. Will start the patient on heparin in addition to the Cardizem drip. Patient will be admitted to the [facility] team. RALPH?DS?-VASc Score for Atrial Fibrillation Stroke Risk from [employer] on 01/27/2025 All calculations should be rechecked by clinician prior to use RESULT SUMMARY: 2 points Stroke risk was 2.2% per year in >90,000 patients (the [place] Atrial Fibrillation Cohort Study) and 2.9% risk of stroke/TIA/systemic embolism. INPUTS: Age > 0 = <65 Sex > 0 = Male CHF history > 0 = No Hypertension history > 1 = Yes Stroke/TIA/thromboembolism history > 0 = No Vascular disease history (prior [place], peripheral artery disease, or aortic plaque) > 1 = Yes Diabetes history > 0 = No Administered Medications Diltiazem HCl 125 mg/ Dextrose 125 mls @ 10 mls/hr IV .[id number] [facility]; Protocol Stop: 02/26/25 21:29 Last Titration: 01/27/25 22:36 Dose: 10 mg/hr, 10 mls/hr Documented By: RACHEL Co-signed By: THU Admin: 01/27/25 21:43 Dose: 5 mg/hr, 5 mls/hr Documented By: RACHEL Co-signed By: ARANZA Heparin Sodium/Dextrose (Heparin 94144 Unit/500 Ml D5w) 25,000 units in 500 mls @ 20 mls/hr IV .Q24H [facility]; Protocol Stop: 02/26/25 23:14 Last Admin: 01/27/25 23:04 Dose: 1,000 units/hr, 20 mls/hr Documented By: RACHEL Co-signed By: DI Discontinued Medications Aspirin (Aspirin 81 Mg Chew) 324 mg PO NOW STA Stop: 01/27/25 21:24 Last Admin: 01/27/25 21:32 Dose: Not Given Documented By: RACHEL Aspirin (Aspirin Chew 324 Mg) 324 mg PO ONCE ONE Stop: 01/27/25 21:32 Last Admin: 01/27/25 21:32 Dose: 324 mg Documented By: RACHEL Diltiazem HCl (Diltiazem Hcl 5 Mg/Ml 5 Ml Vial) Confirm Administered Dose 25 mg IV .STK-MED ONE Stop: 01/27/25 21:10 Last Admin: 01/27/25 21:30 Dose: Not Given Documented By: RACHEL Diltiazem HCl (Diltiazem Hcl 5 Mg/Ml 5 Ml Vial) 20 mg IV NOW STA Stop: 01/27/25 21:11 Last Admin: 01/27/25 21:10 Dose: 20 mg Documented By: RACHEL Co-signed By: ARANZA Diltiazem HCl (Diltiazem Hcl 5 Mg/Ml 5 Ml Vial) 25 mg IV NOW STA Stop: 01/27/25 21:16 Last Admin: 01/27/25 21:20 Dose: 25 mg Documented By: RACHEL Co-signed By: ARANZA Heparin Sodium (Porcine) (Heparin Sod (Porcine) 1000 Unit/Ml) 1 units IV NOW ONE Stop: 01/27/25 23:02 Last Admin: 01/27/25 23:05 Dose: 4,000 units Documented By: RACHEL Co-signed By: DI Heparin Sodium/Dextrose (Heparin Iv Adult Wt-Based Low-Dose W/ Initial Bolus Protocol) 1 each IV NOW STA; Protocol Stop: 01/27/25 22:46 Last Admin: 01/27/25 23:05 Dose: Not Given Documented By: RACHEL Sodium Chloride (Nss) 1,000 mls @ 999 mls/hr IV .Q1H1M WILLY Stop: 01/27/25 22:49 Last Infusion: 01/27/25 22:39 Dose: Infused Documented By: Admin: 01/27/25 21:29 Dose: 999 mls/hr Documented By: RACHEL Ioversol (Optiray 320 125ml) 117 ml IV ONCE ONE Stop: 01/27/25 21:38 Last Admin: 01/27/25 21:37 Dose: 117 ml Documented By: PARISH Lorazepam (Lorazepam 2 Mg/1 Ml Vial) 1 mg IV NOW STA Stop: 01/27/25 21:15 Last Admin: 01/27/25 21:15 Dose: 1 mg Documented By: RACHEL Lorazepam (Lorazepam 2 Mg/1 Ml Vial) Confirm Administered Dose 2 mg .ROUTE .STK- MED ONE Stop: 01/27/25 21:16 Last Admin: 01/27/25 21:31 Dose: Not Given Documented By: RACHEL Potassium Chloride (Potassium Chloride Crtab 20 Meq Tabcr) 40 meq PO NOW STA Stop: 01/27/25 23:02 Last Admin: 01/27/25 23:45 Dose: 40 meq Documented By: CATRACHO Medical Decision Making Laboratory Data Attestation: I reviewed the patient's lab results. 01/27/25 21:06 01/27/25 21:06 Lab Results 01/27/25 01/27/25 Range/Units 21:06 21:27 WBC 8.57 (4.8-10.8) K/ul RBC 6.03 (4.70-6.10) M/uL Hgb 17.7 (14.0-18.0) g/dl POC Hgb 16.7 (14.0-18.0) g/dl Hct 51.7 (42.0-52.0) % POC Hct 49 (42-52) % MCV 85.7 (80.0-100.0) fL MCH 29.4 (25.0-34.0) pg MCHC 34.2 (32.0-36.0) g/dL RDW Std Deviation 41.3 (36.4-46.3) fL RDW Coeff of Bennie 13.4 (11.5-14.5) % Plt Count 163 (130-400) K/uL MPV 10.9 (9.4-12.4) fL Immature Gran % (Auto) 0.4 % Neut % (Auto) 50.4 % Lymph % (Auto) 34.5 % [place] % (Auto) 10.0 % Eos % (Auto) 4.1 % Baso % (Auto) 0.6 % Neut # (Auto) 4.32 (1.40-6.50) K/uL Lymph # (Auto) 2.96 (1.20-3.40) K/uL [place] # (Auto) 0.86 H (0.11-0.59) K/uL Eos # (Auto) 0.35 (0.00-0.50) K/uL Baso # (Auto) 0.05 (0.00-0.20) K/uL Immature Gran # (Auto) 0.03 (0.01-0.20) K/uL PT 10.9 (9.0-12.0) Seconds INR 1.0 (0.9-1.1) APTT 26 (21-31) Seconds PTT Ratio 1.0 POC Sodium 141 (135-144) mmol/L Sodium 141 (136-145) mmol/L POC Potassium 4.0 (3.3-5.0) mmol/L Potassium 3.6 (3.5-5.1) mmol/L POC Chloride 105 (101-112) mmol/L Chloride 104 (98-107) mmol/L Carbon Dioxide 29 (21-32) mmol/L POC Total CO2 27 (24-31) mmol/L Anion Gap 8 (3-11) POC Anion Gap 15.0 L (16-25) mmol/L POC BUN 13 (7-18) mg/dl BUN 13 (6-23) mg/dl Creatinine 0.98 (0.6-1.4) mg/dl POC Creatinine 0.9 (0.6-1.3) mg/dl Est Cr Clr Drug Dosing 109.9 ml/min eGFR 89.94 BUN/Creatinine Ratio 13.3 (10-20) Glucose 113 H (70-99(Fasting)) mg/dl POC Glucose (other) 125 H (70-99) mg/dl Calcium 9.6 (8.6-10.3) mg/dl POC Ioniz Calcium Margo 1.17 (1.12-1.32) mmol/l Magnesium 2.1 (1.7-2.4) mg/dl Troponin I High Sens 15.8 (0-20) pg/ml Lipase 19 (11-82) U/L TSH 2.764 (0.300-4.500) uIu/ml Imaging Data Attestation: I personally reviewed and interpreted this imaging study as follows: My Impression: Chest x-ray negative. Airway clear. No pneumothorax. No consolidation. Mild cardiomegaly No cephalization.. No free air under the diaphragm. No fractures of the skeletal structures. Radiologist's Impression: Chest CTA 01/27/25 21:09 Exam(s): CTA CHEST IV Amt: 117ml EXAM: CT Angiography Chest With Intravenous Contrast CLINICAL HISTORY: Reason for exam: Chest Pain, eval for PE. TECHNIQUE: Axial computed tomographic angiography images of the chest with intravenous contrast. CTDI is 28 mGy and DLP is 922 mGy-cm. Automated exposure control was utilized for the study. A dose lowering technique was utilized adhering to the principles of ALARA. MIP reconstructed images were created and reviewed. COMPARISON: No relevant prior studies available. FINDINGS: Pulmonary arteries: Unremarkable. No pulmonary embolism. Aorta: No acute findings. No thoracic aortic aneurysm. Lungs: Unremarkable. No mass. No consolidation. Pleural space: Unremarkable. No significant effusion. No pneumothorax. Heart: Coronary artery calcifications. No cardiomegaly. No significant pericardial effusion. No evidence of RV dysfunction. Bones/joints: No acute fracture. No dislocation. Soft tissues: Unremarkable. Lymph nodes: Unremarkable. No enlarged lymph nodes. IMPRESSION: No acute findings in the visualized arteries of the chest. Electronically signed by: Britton Cruz MD 01/27/25 22:06 PM Chest X-Ray 01/27/25 21:09 Exam(s): XR CXR 1 VIEW EXAM: XR Chest, 1 View CLINICAL HISTORY: Reason for exam: Chest pain, nonspecific. TECHNIQUE: Frontal view of the chest. COMPARISON: 03/14/2020 FINDINGS: Lungs: Mild pulmonary vascular congestion. No consolidation. Pleural space: Unremarkable. No pneumothorax. Heart: Cardiomegaly. Mediastinum: Unremarkable. Normal mediastinal contour. Bones/joints: Unremarkable. No acute fracture. IMPRESSION: Cardiomegaly with mild pulmonary vascular congestion Electronically signed by: Britton Cruz MD 01/28/25 00:06 AM ECG Data Attestation: I personally reviewed and interpreted this ECG as follows: Additional Comments: EKG #1 at 2103: Atrial fibrillation with a rate of 154. QRS and QTc intervals within normal limits. No ST elevation or ST depression. EKG #2 at 2112 status post Cardizem 20 mg IV push: Atrial fibrillation with rate of 149. QRS [address] elevation or ST depression. EKG #3 at 2115: Atrial fibrillation with rate of 136. QRS and QTc intervals within normal limits. No ST elevation or ST depression. EKG #4 at 2120: Atrial fibrillation with rate of 107. QRS [address] elevation or ST depression. MDM Narrative 2108: The patient was evaluated in room C4. A complete history and physical exam was performed Cardiac monitoring: An order was placed for continuous cardiac monitoring. The monitor shows a rate of 150-170 with atrial fibrilation rhythm interpreted by me Large-bore IV access was obtained. Cardizem 20 mg IV push was administered. Patient's ventricular rate improved into the 130-150 rate. IV fluids were started on the patient. Ativan was ordered for the patient. A repeat dose of Cardizem 25 mg IV push was given to the patient and the patient's ventricular rate improved to the 100-0120 range. After the second bolus of Cardizem the patient reports that his chest pain is improved. Aspirin ordered for the patient. Patient be started on Cardizem drip. Patient states he is not sure if he used to take blood thinners. Will obtain CT of the chest to rule out PE. 2244: Vital signs stable on Cardizem drip. Labs and imaging are unremarkable. [id number] score is 2. Will start the patient on heparin in addition to the Cardizem drip. Patient will be admitted to the [place] hospitalist team. RALPH?DS?-VASc Score for Atrial Fibrillation Stroke Risk from [employer] on 01/27/2025 All calculations should be rechecked by clinician prior to use RESULT SUMMARY: 2 points Stroke risk was 2.2% per year in >90,000 patients (the [place] Atrial Fibrillation Cohort Study) and 2.9% risk of stroke/TIA/systemic embolism. INPUTS: Age > 0 = <65 Sex > 0 = Male CHF history > 0 = No Hypertension history > 1 = Yes Stroke/TIA/thromboembolism history > 0 = No Vascular disease history (prior [place], peripheral artery disease, or aortic plaque) > 1 = Yes Diabetes history > 0 = No Impression & Plan Atrial fibrillation with RVR Critical Care Time Critical Care Time: Yes Total Critical Care Time: 57 I have personally spent greater than 57 minutes of critical care time in the direct management of this patient. This includes bedside care, interpretation of diagnostic studies, and testing, discussion with consultants, patient, and family members, and other required patient management activities. This 57 minutes is in excess of all separately billable procedures. Discharge Plan Visit Data Chief Complaint: Chest Pain Stated Complaint: CHEST PAIN, SOB ED Provider: Maximo Hardy Discharge Problem: Atrial fibrillation with RVR Patient Disposition: Admitted As Inpatient Condition: Serious Forms Stand Alone Forms: [facility] Prescriptions Prescriptions: No Action furosemide [Lasix] 40 mg Tablet 40 mg PO HS Rx Instructions: PER PT "HAVEN'T TAKEN MEDS IN A LONG TIME". THIS IS THE LAST MEDS PT WAS ON PRIOR TO STOPPING THEM PER [facility]. bupropion HCl 150 mg tablet sustained-release 12 hr 150 mg PO HS Rx Instructions: PER PT "HAVEN'T TAKEN MEDS IN A LONG TIME". THIS IS THE LAST MEDS PT WAS ON PRIOR TO STOPPING THEM PER [facility]. lisinopril 20 mg tablet 20 mg PO HS Rx Instructions: PER PT "HAVEN'T TAKEN MEDS IN A LONG TIME". THIS IS THE LAST MEDS PT WAS ON PRIOR TO STOPPING THEM PER [facility]. clopidogrel 75 mg tablet 75 mg PO HS Rx Instructions: PER PT "HAVEN'T TAKEN MEDS IN A LONG TIME". THIS IS THE LAST MEDS PT WAS ON PRIOR TO STOPPING THEM PER [facility]. aspirin 81 mg tablet,delayed release (DR/EC) 81 mg PO HS Rx Instructions: PER PT "HAVEN'T TAKEN MEDS IN A LONG TIME". THIS IS THE LAST MEDS PT WAS ON PRIOR TO STOPPING THEM PER [facility]. potassium chloride 20 mEq tablet,ER particles/crystals 20 meq PO BID Rx Instructions: PER PT "HAVEN'T TAKEN MEDS IN A LONG TIME". THIS IS THE LAST MEDS PT WAS ON PRIOR TO STOPPING THEM PER [facility]. nitroglycerin [Nitrostat] 0.4 mg Tablet, Sublingual 0.4 mg sublingual DIRECTED PRN (Reason: Chest Pain) Rx Instructions: PER PT "HAVEN'T TAKEN MEDS IN A LONG TIME". THIS IS THE LAST MEDS PT WAS ON PRIOR TO STOPPING THEM PER [facility]. sumatriptan succinate 25 mg tablet 25 mg PO DIRECTED PRN (Reason: Migraine Headache) Rx Instructions: PER PT "HAVEN'T TAKEN MEDS IN A LONG TIME". THIS IS THE LAST MEDS PT WAS ON PRIOR TO STOPPING THEM PER [facility]. atorvastatin 40 mg tablet 80 mg PO HS Rx Instructions: PER PT "HAVEN'T TAKEN MEDS IN A LONG TIME". THIS IS THE LAST MEDS PT WAS ON PRIOR TO STOPPING THEM PER [facility]. albuterol sulfate 90 mcg/actuation HFA aerosol inhaler 2 puff INHALATION Q4 PRN (Reason: Shortness Of Breath Or Wheezing) Rx Instructions: PER PT "HAVEN'T TAKEN MEDS IN A LONG TIME". THIS IS THE LAST MEDS PT WAS ON PRIOR TO STOPPING THEM PER [facility]. Spiriva Respimat 2.5 mcg/actuation mist 2 puff INHALATION DAILY Rx Instructions: PER PT "HAVEN'T TAKEN MEDS IN A LONG TIME". THIS IS THE LAST MEDS PT WAS ON PRIOR TO STOPPING THEM PER [facility]. Referrals Referrals: Walter Little PA-C [Primary Care Provider] -
[2025-01-28 00:34] LABS: Appearance Urine Clear (Clear); Bilirubin Urine Negative (Negative); Blood Urine Negative (Negative); Color Urine Yellow; Glucose Urine UA Negative (Negative); Ketones Urine Negative (Negative); Leukocyte Esterase Urine Negative (Negative); Nitrite Urine Negative (Negative); Protein Urine Negative (Negative); Specific Gravity Urine > 1.045 (1.000-1.030); Urobilinogen Urine Negative (Negative); pH Urine 7.5 (4.5-7.5)
[2025-01-28 00:57] LABS: Amphetamines+Metham, Urine Neg (Neg); Barbiturates, Urine Neg (Neg); Benzodiazepine, Urine Neg (Neg); Cocaine, Urine Neg (Neg); Fentanyl, Urine Neg (Neg); MDMA (Ecstacy), Urine Neg (Neg); Marijuana, Urine Neg (Neg); Methadone, Urine Neg (Neg); Opiate, Urine Neg (Neg); Phencyclidine, Urine Neg (Neg)
[2025-01-28] MEDS ORDERED: ATROPINE SULFATE 0.1 MG/ML 10ML SYR IV PRN (01:44)
[2025-01-28] MEDS: POTASSIUM CHLORIDE 20 MEQ in LACTATED RINGER'S 1,000 ML IV ONE (03:15)
[2025-01-28] MEDS: ATROPINE SULFATE 0.1 MG/ML 5ML SYR IV STA (03:15)
[2025-01-28] MEDS: METOPROLOL TARTRATE 25 MG TAB PO STA (03:15)
[2025-01-28] MEDS: NICOTINE 14 MG/24 HR PATCH TD STA (05:30)
[2025-01-28 05:38] LABS: Basophils # (auto) 0.04 K/uL (0.00-0.20); Basophils % (auto) 0.5 %; Eosinophils # (auto) 0.38 K/uL (0.00-0.50); Eosinophils % (auto) 4.8 %; Hematocrit (blood only) 45.8 % (42.0-52.0); Hemoglobin 15.7 g/dl (14.0-18.0); Immature Granulocytes # (auto) 0.03 K/uL (0.01-0.20); Immature Granulocytes % (auto) 0.4 %; Lymphocytes # (auto) 2.99 K/uL (1.20-3.40); Lymphocytes % (auto) 37.8 %; Mean Corpuscular Hemoglobin 29.2 pg (25.0-34.0); Mean Corpuscular Hgb Conc 34.3 g/dL (32.0-36.0); Mean Corpuscular Volume 85.1 fL (80.0-100.0); Mean Platelet Volume 10.4 fL (9.4-12.4); Monocytes % (auto) 7.6 %; Neutrophils # (auto) 3.87 K/uL (1.40-6.50); Neutrophils % (auto) 48.9 %; Platelet Count 133 K/uL (130-400); RDW Coefficient of Variation 13.4 % (11.5-14.5); RDW Standard Deviation 41.6 fL (36.4-46.3); Red Blood Count 5.38 M/uL (4.70-6.10); White Blood Count 7.91 K/ul (4.8-10.8)
--- NOTE | 2025-01-28 05:41 | Communication Note ---
Date of Service: January 28, 2025 140 AM Patient with 7.9 second pause as per RN followed by conversion to SB on telemetry. Patient complained of chest discomfort. Face flushed as per RN. AP Symptomatic bradycardia, history bradycardia as per records NSR conversion post IV Cardizem infusion/digoxin administration Stop Cardizem Atropine as needed symptomatic bradycardia Hold chronotropic agents until patient seen by cardiology.
[2025-01-28 05:53] LABS: BUN Creatinine Ratio 13.8 (10-20); Calcium 8.6 mg/dl (8.6-10.3); Chol HDL Ratio 4.3 (0-5); Creatinine Clr Calc Pharmacy 134.6 ml/min; Potassium 4.2 mmol/L (3.5-5.1)
[2025-01-28 06:00] LABS: ANTI-Xa, UFH(UnfractionatedHep 0.16 IU/ml (0.3-0.7)
[2025-01-28 06:02] LABS: Troponin I High Sensitivity 282.2 pg/ml (0-20)
[2025-01-28] MEDS: lisinopril 10 MG TAB PO SCH (06:04)
[2025-01-28] MEDS: HEPARIN SOD (PORCINE) 1000 UNIT/ML IV ONE (07:01)
[2025-01-28 07:32] LABS: Estimated Average Glucose 128 mg/dl; Hemoglobin A1C 6.1 % (4.5-5.6)
--- NOTE | 2025-01-28 08:01 | Electrocardiogram Report ---
Test Reason : Blood Pressure : */* mmHG Vent. Rate : 154 BPM Atrial Rate : * BPM P-R Int : * ms QRS Dur : 82 ms QT Int : 294 ms P-R-T Axes : * 38 -49 degrees QTcB Int : 470 ms Atrial fibrillation with rapid ventricular response Nonspecific ST and T wave abnormality Abnormal ECG When compared with ECG of 24-Jun-2023 22:12, Atrial fibrillation has replaced Sinus rhythm Vent. rate has increased by [address] and T wave abnormality now present Confirmed by Shreyas Clayton ([id number]) on 01/28/2025 8:01:25 AM Referred By: REFERRED SELF Confirmed By: Shreyas Clayton
[2025-01-28] MEDS: NICOTINE 14 MG/24 HR PATCH TD SCH (08:15)
--- NOTE | 2025-01-28 08:45 | Cardiology Consultation ---
Date of Consultation January 28, 2025 Assessment & Plan (1) Atrial fibrillation with RVR: (2) Demand ischemia of myocardium: (3) Elevated troponin: (4) Tachycardia-bradycardia syndrome: (5) Noncompliance with medication regimen: Plan 59-year-old male admitted with paroxysmal atrial fibrillation and rapid ventricular response. Elevated troponin most likely secondary to demand ischemia in the setting of rapid A-fib. 8-second conversion pause noted with sinus bradycardia on telemetry. Denies any recent anginal symptoms during normal activity. Preliminary review of bedside echocardiogram reveals preserved LV systolic function without regional wall motion abnormality. No ischemic ST changes during periods of rapid atrial fibrillation. Mildly elevated high- sensitivity troponin trending downward. Noncompliance with all cardiovascular medicines despite recent stenting as noted above. Recommendations: * Load clopidogrel 600 mg x 1 now due to recent stenting April 2024. * Continue low-dose aspirin. * IV heparin infusion. * Electrophysiology consultation re: tachy- jud syndrome, 8-second pause with recent episodes of near syncope. * Restart high intensity statin therapy. * Continue telemetry monitoring. * Hold AV martha blocking agents currently Troy Castano DO [facility] History of Present Illness Reason for Consultation: KULDIP, mitziib Requesting Physician: Dr. Binu Stephens Attending Physician: Marito Stephen MD History of Present Illness 59-year-old patient with history of multivessel coronary disease and prior PCI presented to the emergency department with chest discomfort and new onset rapid atrial fibrillation. Heart rate into the 150s documented. Spontaneous conversion to sinus rhythm overnight with a 8.0 second conversion pause. Patient reports a abrupt onset of chest discomfort last evening. Came to the ER for further evaluation. Treated with IV Cardizem infusion and digoxin. Experienced a mild episode of chest discomfort without near syncope during 8- second conversion pause, however, reports multiple episodes of near syncope while driving and 1 while seated at home over the past few months. He is not chronically treated with beta-jayne therapy per review of records. Patient unsure of current outpatient medication. States he has not taken any medications in several months. Reports recent PCI with 4 stents implanted while living in [place] April 2024. There are no medical records detailing the procedure. States he had a rapid heart rate at that time, however, he was not prescribed any blood thinner such as warfarin or Eliquis. Currently he is feeling much better after conversion to sinus rhythm. Telemetry reveals sinus rhythm and sinus bradycardia in the 50s and 60s. Problem List: 1. Multivessel coronary artery disease 2. Status post PCI of the left circumflex while in [place], details unknown 3. Hospitalization in October 2022 with NSTEMI, status post November 12, 2022 PCI of the mid RCA with a single drug-eluting stent (3.5 x 26 mm [place]), November 13, 2022 staged PCI of the mid LAD with single drug-eluting stent (3.0 x 22 mm [place]), residual ostial stenosis of jailed diagonal but DALIA-3 flow 4. Hypertension, longstanding 5. Dyslipidemia 6. Chronic tobacco use 7. Peripheral vascular disease, 60% proximal right internal carotid artery stenosis via February 2023 CTA at [facility], ? Lower extremity stenting 8. History of CVA, old lacunar infarct, [place] 2017 9. Obesity 10. Obstructive sleep apnea pending initiation of CPAP therapy 11. Status post appendectomy Allergies Allergy/AdvReac Type Severity Reaction Status Date / Time No Known Allergies Allergy Verified 01/27/25 22:54 Home Medications Medication Instructions Recorded Confirmed Type aspirin 81 mg tablet,delayed 81 mg PO HS 03/03/22 01/27/25 History release bupropion HCl 150 mg tablet,12 hr 150 mg PO HS 03/03/22 01/27/25 History sustained-release clopidogrel 75 mg tablet 75 mg PO HS 03/03/22 01/27/25 History lisinopril 20 mg tablet 20 mg PO HS 03/03/22 01/27/25 History nitroglycerin 0.4 mg sublingual 0.4 mg sublingual DIRECTED PRN 03/03/22 01/27/25 History tablet (Nitrostat) Chest Pain potassium chloride 20 mEq 20 meq PO BID 03/03/22 01/27/25 History tablet,extended release(part/cryst) furosemide 40 mg tablet (Lasix) 40 mg PO HS 10/29/22 01/27/25 History atorvastatin 40 mg tablet 80 mg PO HS 03/07/23 01/27/25 History sumatriptan succinate 25 mg tablet 25 mg PO DIRECTED PRN Migraine 03/07/23 01/27/25 History Headache albuterol sulfate 90 mcg/actuation 2 puff inhalation Q4 PRN Shortness 03/14/23 01/27/25 History aerosol inhaler Of Breath Or Wheezing tiotropium bromide 2.5 2 puff inhalation DAILY 03/14/23 01/27/25 History mcg/actuation mist for inhalation (Spiriva Respimat) Patient History Medical History Afib Dyslipidemia, goal LDL below 70 Morbid obesity Hypertension Peripheral vascular disease Coronary artery disease "s/p PCI" Surgical History Status post coronary artery stent placement Status post appendectomy Social History Smoking Status: Current every day smoker Tobacco Type: Cigarettes Second Hand Exposure: No; Do You Dip or Chew Tobacco: No; Hx Alcohol Use: Yes Alcohol type: beer Hx Substance Use: No Preferred Language: Georgian Communication Ability: Effective Communication Ability Comment: Pt states he can only sign his name. Remote Computer Terminal Operator Required: No Beliefs That Will Affect Care: None Current Living Situation: Family Current Living Situation Comment: Brother and [id number] Feels Safe at Home: Yes Assistive Devices: None Review of Systems Review of Systems: All systems reviewed & are unremarkable except as noted in Subjective Physical Exam Constitutional: well developed, well nourished and + obese Respiratory: no respiratory distress, no labored breathing and no retractions Auscultation: no crackles, no rales, no rhonchi and no wheezes Cardiovascular: Rate/Rhythm: regular rate, regular rhythm and + bradycardic Heart Sounds: normal S1, normal S2 and + murmur Vessels: no JVD and + radial pulses abnormal Extremities: + edema (trace ankle edema) Gastrointestinal (Abdomen): Inspection/Auscultation: normal bowel sounds; abdomen not distended Percussion/Palpation: abdomen soft; abdomen nontender, no guarding and abdomen not rigid Neurologic: CN's II-XI intact bilaterally and moves all extremities; no focal motor deficits Psychiatric: A+Ox3, euthymic affect Results & Data Vital Signs (Past 12 Hours) Vital Signs Temp Pulse Pulse Pulse Resp BP BP 01/28/25 08:00 01/28/25 07:20 36.3 C L 57 L 18 131/66 01/28/25 06:27 55 L 01/28/25 04:00 54 L 162/66 H 01/28/25 03:41 36.3 C L 57 L 18 134/72 01/28/25 02:07 01/28/25 01:43 40 L 01/28/25 01:22 83 01/28/25 01:20 36.2 C L 120 H 22 117/78 01/28/25 01:20 01/28/25 00:25 88 22 115/78 01/28/25 00:21 102 H 01/27/25 23:46 109 H 20 102/66 01/27/25 23:31 112 H 20 99/72 L 01/27/25 23:16 115/65 01/27/25 23:01 102 H 20 123/85 01/27/25 22:45 108 H 26 H 115/83 01/27/25 22:30 127 H 18 129/89 01/27/25 22:15 121 H 21 138/108 H 01/27/25 22:02 103 H 25 H 125/69 01/27/25 21:47 114 H 23 114/88 01/27/25 21:31 114 H 21 108/79 01/27/25 21:22 124 H 01/27/25 21:19 128/92 01/27/25 21:18 131 H 21 01/27/25 21:15 105/77 01/27/25 21:15 142 H 19 01/27/25 21:15 138 H 19 01/27/25 21:07 132/92 01/27/25 20:59 36.5 C 129 H 20 172/98 H Pulse Ox Pulse Ox O2 Del Method O2 Del Method O2 Flow Rate O2 Flow Rate 01/28/25 08:00 Room Air 01/28/25 07:20 95 Room Air 01/28/25 06:27 01/28/25 04:00 01/28/25 03:41 94 Room Air 01/28/25 02:07 Room Air 0 01/28/25 01:43 01/28/25 01:22 01/28/25 01:20 94 Room Air 0 01/28/25 01:20 94 Room Air 0 01/28/25 00:25 94 Room Air 01/28/25 00:21 01/27/25 23:46 91 Room Air 01/27/25 23:31 97 Room Air 01/27/25 23:16 01/27/25 23:01 94 Room Air 01/27/25 22:45 95 01/27/25 22:30 95 Room Air 01/27/25 22:15 94 01/27/25 22:02 01/27/25 21:47 94 01/27/25 21:31 95 01/27/25 21:22 01/27/25 21:19 01/27/25 21:18 97 01/27/25 21:15 01/27/25 21:15 97 01/27/25 21:15 96 Room Air 01/27/25 21:07 01/27/25 20:59 97 Room Air Laboratory Results Cardiac Enzymes 01/27/25 01/28/25 01/28/25 Range/Units 21:06 00:16 05:12 Troponin I High Sens 15.8 105.8 H* D 282.2 H* D (0-20) pg/ml Coagulation 01/27/25 Range/Units 21:06 PT 10.9 (9.0-12.0) Seconds APTT 26 (21-31) Seconds Lipids 01/28/25 Range/Units 05:12 Triglycerides 161 H (0-150) mg/dl Cholesterol 164 (0-200) mg/dl HDL Cholesterol 38 mg/dl Cholesterol/HDL Ratio 4.3 (0-5) CBC 01/27/25 01/28/25 Range/Units 21:06 05:12 WBC 8.57 7.91 (4.8-10.8) K/ul RBC 6.03 5.38 (4.70-6.10) M/uL Hgb 17.7 15.7 (14.0-18.0) g/dl Hct 51.7 45.8 (42.0-52.0) % Plt Count 163 133 (130-400) K/uL Neut # (Auto) 4.32 3.87 (1.40-6.50) K/uL Lymph # (Auto) 2.96 2.99 (1.20-3.40) K/uL Hand # (Auto) 0.86 H 0.60 H (0.11-0.59) K/uL Eos # (Auto) 0.35 0.38 (0.00-0.50) K/uL Baso # (Auto) 0.05 0.04 (0.00-0.20) K/uL Comprehensive Metabolic Panel 01/27/25 01/28/25 Range/Units 21:06 05:12 Sodium 141 138 (136-145) mmol/L Potassium 3.6 4.2 (3.5-5.1) mmol/L Chloride 104 108 H (98-107) mmol/L Carbon Dioxide 29 25 (21-32) mmol/L BUN 13 11 (6-23) mg/dl Creatinine 0.98 0.80 (0.6-1.4) mg/dl Glucose 113 H 125 H (70-99(Fasting)) mg/dl Calcium 9.6 8.6 (8.6-10.3) mg/dl Intake and Output 01/27/25 01/28/25 01/28/25 22:59 06:59 14:59 Intake Total 1004.417 / 1188.417 184 / 1188.417 Balance 1004.417 / 1188.417 184 / 1188.417 Intake: IV 1004.417 / 1188.417 184 / 1188.417 Heparin 72896 Unit/500 ml D5w 153 / 153 25,000 units In 500 ml @ 1,000 UNITS/HR 20 mls/hr IV .Q24H [facility] Rx#:[id number] Sodium Chloride 0.9% 1,000 ml @ 1000 / 1000 999 mls/hr IV .Q1H1M [facility] Rx#: [id number] dilTIAZem HCL 125 mg In 4.417 / 35.417 31 / 35.417 Dextrose 5% 100 ml @ 10 MG/HR 10 mls/hr IV .[id number] [facility] Rx#: [id number] Oral 0 / 0 Other: Other Intake Source NPO Weight 134.4 kg 134.4 kg Weight Measurement Method Built in [facility]
[2025-01-28] MEDS ORDERED: METOPROLOL TARTRATE 25 MG TAB PO SCH (09:00)
[2025-01-28] MEDS: CLOPIDOGREL BISULFATE 300 MG TAB PO STA (11:12)
[2025-01-28 12:55] LABS: ANTI-Xa, UFH(UnfractionatedHep 0.28 IU/ml (0.3-0.7)
--- NOTE | 2025-01-28 14:24 | Hospitalist Progress Note ---
Date of Service January 28, 2025 Assessment & Plan (1) Non-ST elevation (NSTEMI) myocardial infarction: Plan: Assessment and plan below following discussion of case with ED provider and reviewing patient history/pertinent normal/abnormal diagnostic test results. NSTEMI hx multivessel CAD status post stent (2016, 2022, 2023) history of medication nonadherence continue Heparin continue ASA, Plavix, Atorvastatin EPS consult for possible Tachy appreciate Chair Caner consult Hypertension -- BP improving continue Lisinopril New onset A-fib r/o Tachybrady Syndrome -- continue Heparin drip Metoprolol -- EPS consulted secondary to 8 second pause PVD status post stent hyperlipidemia, statin noncompliance mild bradycardia as per records history of CVA MARIVEL (not on CPAP) Pre DM: A1c 6.1 Transient tingling fingers right hand, possible carpal tunnel syndrome illiteracy ongoing tobacco abuse Outpatient electrodiagnostic testing for possible CTS Nicotine patch DVT prophylaxis Heparin Full code Admission and Anticipated Discharge Date Admission Date: January 27, 2025 Subjective ff up for NSTEMI, etc seen resting in chair, comfortable states he feel fine overall chest pain free denies shortness of breath, palpitations, dizziness no other new symptoms Review of Systems Review of Systems: all noted and negative except for above Physical Exam Physical Exam: General- oriented x 3, not in distress, speaks in sentences with no effort or accessory muscle use Eyes- anicteric Neck- no JVD Lungs- clear breath sounds bilaterally, no rales/wheezes Heart- normal rate, regular rhythm; no murmurs Abdomen- normal bowel sounds, nondistended, soft, nontender Extremities- no pretibial edema, no calf tenderness Neuro- alert, oriented x 3; no gross focal neurologic deficits Skin- warm & dry Results & Data Results & Data Vital Signs (Past 12 Hours) Vital Signs Temp Pulse Pulse Resp BP Pulse Ox O2 Del Method 01/28/25 11:13 36.6 C 55 L 18 117/65 95 Room Air 01/28/25 08:00 Room Air 01/28/25 07:20 36.3 C L 57 L 18 131/66 95 Room Air 01/28/25 06:27 55 L 01/28/25 04:00 54 L 162/66 H 01/28/25 03:41 36.3 C L 57 L 18 134/72 94 Room Air all noted and reviewed including below
[2025-01-28 20:19] LABS: ANTI-Xa, UFH(UnfractionatedHep 0.22 IU/ml (0.3-0.7)
[2025-01-28] MEDS: ASPIRIN 81 MG ECTAB PO SCH (20:54)
[2025-01-28] MEDS: ATORVASTATIN 40 MG TAB PO SCH (20:54)
[2025-01-28] MEDS ORDERED: lisinopril 20 MG TAB PO SCH (21:00)
[2025-01-29] MEDS: oxyCODONE HCL IR 5 MG TAB (IMMEDIATE RELEASE) PO PRN (02:37)
--- NOTE | 2025-01-29 06:17 | Electrocardiogram Report ---
Test Reason : Blood Pressure : */* mmHG Vent. Rate : 149 BPM Atrial Rate : * BPM P-R Int : * ms QRS Dur : 78 ms QT Int : 288 ms P-R-T Axes : * 35 64 degrees QTcB Int : 453 ms Atrial fibrillation with rapid ventricular response Nonspecific ST and T wave abnormality Abnormal ECG When compared with ECG of 27-Jan-2025 21:04, No significant change was found Confirmed by Dean Baca ([id number]) on 01/29/2025 6:16:49 AM Referred By: REFERRED SELF Confirmed By: Dean Baca
--- NOTE | 2025-01-29 06:17 | Electrocardiogram Report ---
Test Reason : Blood Pressure : */* mmHG Vent. Rate : 136 BPM Atrial Rate : * BPM P-R Int : * ms QRS Dur : 80 ms QT Int : 294 ms P-R-T Axes : * 34 89 degrees QTcB Int : 442 ms Atrial fibrillation with rapid ventricular response Abnormal ECG When compared with ECG of 27-Jan-2025 21:13, No significant change was found Confirmed by Dean Baca ([id number]) on 01/29/2025 6:17:03 AM Referred By: REFERRED SELF Confirmed By: Dean Baca
--- NOTE | 2025-01-29 06:17 | Electrocardiogram Report ---
Test Reason : Blood Pressure : */* mmHG Vent. Rate : 107 BPM Atrial Rate : * BPM P-R Int : * ms QRS Dur : 80 ms QT Int : 310 ms P-R-T Axes : * 29 58 degrees QTcB Int : 413 ms Atrial fibrillation with rapid ventricular response Low voltage QRS Nonspecific T wave abnormality Abnormal ECG When compared with ECG of 27-Jan-2025 21:16, No significant change Confirmed by Dean Baca ([id number]) on 01/29/2025 6:17:24 AM Referred By: REFERRED SELF Confirmed By: Dean Baca
--- NOTE | 2025-01-29 06:18 | Electrocardiogram Report ---
Test Reason : Blood Pressure : */* mmHG Vent. Rate : 55 BPM Atrial Rate : 55 BPM P-R Int : 128 ms QRS Dur : 80 ms QT Int : 418 ms P-R-T Axes : 16 5 61 degrees QTcB Int : 399 ms Sinus bradycardia Otherwise normal ECG When compared with ECG of 27-Jan-2025 21:21, Sinus rhythm has replaced Atrial fibrillation Vent. rate has decreased by 52 bpm Confirmed by Dean Baca ([id number]) on 01/29/2025 6:17:48 AM Referred By: REFERRED SELF Confirmed By: Dean Baca
[2025-01-29] MEDS: CLOPIDOGREL BISULFATE 75 MG TAB PO SCH (08:09)
[2025-01-29 09:54] LABS: Basophils # (auto) 0.04 K/uL (0.00-0.20); Basophils % (auto) 0.7 %; Eosinophils # (auto) 0.32 K/uL (0.00-0.50); Eosinophils % (auto) 5.4 %; Hematocrit (blood only) 44.9 % (42.0-52.0); Hemoglobin 15.5 g/dl (14.0-18.0); Immature Granulocytes # (auto) 0.01 K/uL (0.01-0.20); Immature Granulocytes % (auto) 0.2 %; Lymphocytes # (auto) 2.24 K/uL (1.20-3.40); Mean Corpuscular Hemoglobin 29.4 pg (25.0-34.0); Mean Corpuscular Hgb Conc 34.5 g/dL (32.0-36.0); Mean Corpuscular Volume 85.2 fL (80.0-100.0); Monocytes # (auto) 0.54 K/uL (0.11-0.59); Monocytes % (auto) 9.2 %; Neutrophils # (auto) 2.74 K/uL (1.40-6.50); Neutrophils % (auto) 46.5 %; Platelet Count 125 K/uL (130-400); RDW Coefficient of Variation 13.4 % (11.5-14.5); RDW Standard Deviation 41.6 fL (36.4-46.3); Red Blood Count 5.27 M/uL (4.70-6.10); White Blood Count 5.89 K/ul (4.8-10.8)
[2025-01-29 10:15] LABS: BUN Creatinine Ratio 11.6 (10-20); Calcium 8.5 mg/dl (8.6-10.3); Creatinine Clr Calc Pharmacy 125.3 ml/min; Magnesium 2.2 mg/dl (1.7-2.4); Potassium 4.1 mmol/L (3.5-5.1)
[2025-01-29] MEDS: ISOSORBIDE MONO EXTENDED REL 30 MG TABCR PO SCH (12:49)
--- NOTE | 2025-01-29 14:44 | Pre Anesthesia Assessment ---
Date of Service January 29, 2025 Pre Sedation Assessment Vital Signs Temp Pulse Pulse Resp BP Pulse Ox O2 Del Method 01/29/25 14:35 51 L 01/29/25 13:55 36.6 C 52 L 18 146/79 H 98 Room Air 01/29/25 11:01 36.4 C L 55 L 18 149/75 H 96 Room Air 01/29/25 08:26 53 L 01/29/25 08:26 Room Air 01/29/25 07:02 36.6 C 94 H 18 154/72 H 94 Room Air 01/29/25 02:19 36.5 C 56 L 18 145/76 H 94 Room Air 01/28/25 22:38 36.5 C 58 L 18 139/80 94 Room Air 01/28/25 22:00 56 L 01/28/25 21:00 Room Air 01/28/25 19:15 36.5 C 55 L 18 128/70 96 Room Air 01/28/25 14:47 36.7 C 59 L 18 114/72 94 Room Air Cardiovascular + bradycardic Respiratory normal respiratory effort, lungs clear to auscultation Pre-Sedation Airway Assessment Smoking Status: Current every day smoker Hx Sleep Apnea: Yes Hx Difficult Intubation: No Short, Thick Neck: Yes Thyromental Distance: < 3.5 Finger Breadths Oral Cavity: + WNL Mallampati Class: III ASA: ASA2 NPO Status Date of Last Intake of Fluids: 01/28/25 Time of Last Intake of Fluids: 20:00 Date of Last Intake of Solid Food: 01/28/25 Time of Last Intake of Solid Foods: 19:00 Procedure Planning Contraindications for Sedation: none Current Medications Reviewed: Yes Notes The planned sedation has been discussed with the patient. Informed Consent was obtained. I have identified the patient, determined the appropriateness of sedation and have assessed the patient immediately prior to the procedure. All medicine(s) and interventions are by my order.
--- NOTE | 2025-01-29 14:44 | History & Physical Bridge Note ---
Date of Service January 29, 2025 History & Physical Bridge Note I have examined the patient, reviewed the History & Physical and in the interval since the performance of the History & Physical I have noted the following changes of clinical significance: pt with TBS recommended a pacemaker prior to hospital discharge. Discussed the procedure and potential risks with the patient he expressed an understanding and consents signed.
--- NOTE | 2025-01-29 15:38 | Hospitalist Progress Note ---
Date of Service January 29, 2025 Assessment & Plan (1) Non-ST elevation (NSTEMI) myocardial infarction: Plan: Assessment and plan below following discussion of case with ED provider and reviewing patient history/pertinent normal/abnormal diagnostic test results. NSTEMI History of multivessel CAD status post stent (2016, 2022, 2023) history of medication nonadherence continue Heparin continue ASA, Plavix, Atorvastatin EPS consult for possible Tachy appreciate Sign Maker consult 01/29 awaiting Cardiology service eval for further recommendations Hypertension -- BP improving continue Lisinopril New onset A-fib r/o Tachybrady Syndrome -- continue Heparin drip -- EPS consulted secondary to 8 second pause PVD status post stent hyperlipidemia, statin noncompliance mild bradycardia as per records history of CVA MARIVEL (not on CPAP) -- nocturnal pulse oximetry ordered Pre DM: A1c 6.1 Transient tingling fingers right hand, possible carpal tunnel syndrome illiteracy ongoing tobacco abuse Outpatient electrodiagnostic testing for possible CTS Nicotine patch DVT prophylaxis Heparin Full code Admission and Anticipated Discharge Date Admission Date: January 27, 2025 Subjective ff up for NSTEMI, possible TBS etc seen resting in bed, comfortable sleeping, easily awakened states he feels ok overall had chest pain overnight, now resolved no chest pain, dyspnea, palpitations, dizziness no other symptoms Review of Systems Review of Systems: all noted and negative except for above Physical Exam Physical Exam: General- oriented x 3, not in distress, speaks in sentences with no effort or accessory muscle use Eyes- anicteric Neck- no JVD Lungs- clear breath sounds bilaterally, no rales/wheezes Heart- normal rate, regular rhythm; no murmurs Abdomen- normal bowel sounds, nondistended, soft, nontender Extremities- no pretibial edema, no calf tenderness Neuro- alert, oriented x 3; no gross focal neurologic deficits Skin- warm & dry Results & Data Results & Data Vital Signs (Past 12 Hours) Vital Signs Temp Pulse Pulse Resp BP Pulse Ox O2 Del Method 01/29/25 14:35 51 L 01/29/25 13:55 36.6 C 52 L 18 146/79 H 98 Room Air 01/29/25 11:01 36.4 C L 55 L 18 149/75 H 96 Room Air 01/29/25 08:26 53 L 01/29/25 08:26 Room Air 01/29/25 07:02 36.6 C 94 H 18 154/72 H 94 Room Air all noted and reviewed including below
--- NOTE | 2025-01-29 16:40 | Cardiology Progress Note ---
Date of Service January 29, 2025 Assessment & Plan (1) Atrial fibrillation with RVR: (2) Demand ischemia of myocardium: (3) Elevated troponin: (4) Tachycardia-bradycardia syndrome: (5) Noncompliance with medication regimen: Plan 59-year-old male admitted with paroxysmal atrial fibrillation and rapid ventricular response. Elevated troponin secondary to demand ischemia in the setting of rapid A-fib. 8-second conversion pause noted with sinus bradycardia on telemetry. Intermittent episodes of near syncope reported while driving prior to hospitalization. Recommendations: * Dual-chamber pulmonary pacemaker permanent placement plantation today to allow for addition of AV martha blocking agents. * Start Toprol-XL 25 mg twice daily post pacemaker implantation. * Initiate oral anticoagulation with Eliquis in a.m. 01/30/2025. * Discontinue low-dose aspirin. * Continue clopidogrel 75 mg daily * Continue high intensity statin therapy. Troy Castano DO, [facility] Admission and Anticipated Discharge Date Admission Date: January 27, 2025 Subjective 59-year-old patient seen examined at the bedside. No recurrent atrial fibrillation on telemetry. Intermittent bradycardia recorded on telemetry overnight. Review of Systems Review of Systems: All systems reviewed & are unremarkable except as noted in Subjective Physical Exam Constitutional: well developed, well nourished and + obese Respiratory: no respiratory distress, no labored breathing and no retractions Auscultation: no crackles, no rales, no rhonchi and no wheezes Cardiovascular: Rate/Rhythm: regular rate, regular rhythm and + bradycardic Heart Sounds: normal S1, normal S2 and + murmur Vessels: no JVD and + radial pulses abnormal Extremities: + edema (trace ankle edema) Gastrointestinal (Abdomen): Inspection/Auscultation: normal bowel sounds; abdomen not distended Percussion/Palpation: abdomen soft; abdomen nontender, no guarding and abdomen not rigid Neurologic: CN's II-XI intact bilaterally and moves all extremities; no focal motor deficits Psychiatric: A+Ox3, euthymic affect Results & Data Vital Signs (Past 12 Hours) Vital Signs Temp Pulse Pulse Resp BP Pulse Ox O2 Del Method 01/29/25 14:35 51 L 01/29/25 13:55 36.6 C 52 L 18 146/79 H 98 Room Air 01/29/25 11:01 36.4 C L 55 L 18 149/75 H 96 Room Air 01/29/25 08:26 53 L 01/29/25 08:26 Room Air 01/29/25 07:02 36.6 C 94 H 18 154/72 H 94 Room Air Laboratory Results CBC 01/29/25 Range/Units 09:25 WBC 5.89 (4.8-10.8) K/ul RBC 5.27 (4.70-6.10) M/uL Hgb 15.5 (14.0-18.0) g/dl Hct 44.9 (42.0-52.0) % Plt Count 125 L (130-400) K/uL Neut # (Auto) 2.74 (1.40-6.50) K/uL Lymph # (Auto) 2.24 (1.20-3.40) K/uL [place] # (Auto) 0.54 (0.11-0.59) K/uL Eos # (Auto) 0.32 (0.00-0.50) K/uL Baso # (Auto) 0.04 (0.00-0.20) K/uL Comprehensive Metabolic Panel 01/29/25 Range/Units 09:25 Sodium 138 (136-145) mmol/L Potassium 4.1 (3.5-5.1) mmol/L Chloride 106 (98-107) mmol/L Carbon Dioxide 27 (21-32) mmol/L BUN 10 (6-23) mg/dl Creatinine 0.86 (0.6-1.4) mg/dl Glucose 100 H (70-99(Fasting)) mg/dl Calcium 8.5 L (8.6-10.3) mg/dl Intake and Output 01/29/25 01/29/25 01/29/25 06:59 14:59 22:59 Intake Total 223.533 / 1970.533 126.000 / 126.000 Balance 223.533 / 1720.533 126.000 / 126.000 Intake: IV 223.533 / 570.533 126.000 / 126.000 Heparin 71953 Unit/500 ml D5w 223.533 / 570.533 126.000 / 126.000 25,000 units In 500 ml @ 1,400 UNITS/HR 28 mls/hr IV .[id number] [facility] Rx#:[id number] Other: Other Intake Source npo # Unmeasured Voids 1 2 Weight 134.6 kg
[2025-01-29] MEDS: VANCOMYCIN HCL 1000MG/20ML VIAL ONE (16:56)
[2025-01-29] MEDS: LIDOCAINE 1% LOCAL 20 ML VIAL ONE (16:56)
[2025-01-29] MEDS: WATER, STERILE FOR INJ 10 ML VIAL ONE (16:56)
[2025-01-29] MEDS: ceFAZolin 330 MG/ML 1 GM VIAL ONE (16:56)
[2025-01-29] MEDS: BUPIVACAINE 0.25% PF 30 ML VIAL ONE (16:56)
[2025-01-29] MEDS: MIDAZOLAM HCL 5 MG/ML 1 ML VIAL ONE (16:57)
[2025-01-29] MEDS: fentaNYL citrate PF 100 MCG/2 ML VIAL ONE ×3 (16:57→17:13)
[2025-01-29] MEDS: ONDANSETRON INJ 2 MG/ML 2 ML VIAL ONE (16:58)
[2025-01-29] MEDS: MIDAZOLAM HCL 1 MG/ML 2ML VIAL ONE ×2 (16:59→17:13)
--- NOTE | 2025-01-29 19:21 | XRay Report ---
Technique: A frontal view of the chest was obtained Comparison is made to the prior examination dated 11/27/2024 Findings: There is suspected mild pulmonary vascular congestion. The heart size is at the upper limit of normal. No pleural effusion or pneumothorax is seen. There is no definite pulmonary nodule. No fracture is noted. There is a new left chest wall pacemaker device Impression: 1. Borderline cardiomegaly and mild pulmonary vascular congestion 2. No definite pneumothorax after pacemaker placement ACT 112: Positive. There are findings on this exam that require communication between the performing entity and the patient following Patient Test Result Information Act ([place] ACT 112) guidelines. Electronically signed by Tramaine Orellana 01-29-2025 7:20 PM
[2025-01-29] MEDS: METOPROLOL SUCC 25MG EXT REL TAB PO SCH (21:08)
[2025-01-30] MEDS: ACETAMINOPHEN 325 MG TAB PO PRN (05:50)
[2025-01-30 08:02] LABS: Basophils # (auto) 0.05 K/uL (0.00-0.20); Basophils % (auto) 0.7 %; Eosinophils # (auto) 0.31 K/uL (0.00-0.50); Eosinophils % (auto) 4.5 %; Hematocrit (blood only) 47.2 % (42.0-52.0); Hemoglobin 16.2 g/dl (14.0-18.0); Immature Granulocytes # (auto) 0.02 K/uL (0.01-0.20); Immature Granulocytes % (auto) 0.3 %; Lymphocytes # (auto) 1.88 K/uL (1.20-3.40); Lymphocytes % (auto) 27.2 %; Mean Corpuscular Hemoglobin 29.1 pg (25.0-34.0); Mean Corpuscular Hgb Conc 34.3 g/dL (32.0-36.0); Mean Corpuscular Volume 84.9 fL (80.0-100.0); Mean Platelet Volume 10.3 fL (9.4-12.4); Monocytes # (auto) 0.66 K/uL (0.11-0.59); Monocytes % (auto) 9.6 %; Neutrophils # (auto) 3.99 K/uL (1.40-6.50); Neutrophils % (auto) 57.7 %; Platelet Count 136 K/uL (130-400); RDW Coefficient of Variation 13.2 % (11.5-14.5); RDW Standard Deviation 40.8 fL (36.4-46.3); Red Blood Count 5.56 M/uL (4.70-6.10); White Blood Count 6.91 K/ul (4.8-10.8)
[2025-01-30 08:29] LABS: BUN Creatinine Ratio 12.2 (10-20); Calcium 8.7 mg/dl (8.6-10.3); Creatinine Clr Calc Pharmacy 119.5 ml/min; Magnesium 2.1 mg/dl (1.7-2.4); Potassium 4.4 mmol/L (3.5-5.1)
[2025-01-30 08:33] LABS: ANTI-Xa, UFH(UnfractionatedHep < 0.10 IU/ml (0.3-0.7)
[2025-01-30] MEDS: APIXABAN 5 MG TABLET PO SCH (11:53)
--- NOTE | 2025-01-30 13:43 | Cardiology Progress Note ---
Date of Service January 30, 2025 Assessment & Plan (1) Atrial fibrillation with RVR: (2) Demand ischemia of myocardium: (3) Elevated troponin: (4) Tachycardia-bradycardia syndrome: (5) Noncompliance with medication regimen: (6) Nocturnal hypoxemia due to obesity: Plan 59-year-old male admitted with paroxysmal atrial fibrillation and rapid ventricular response. Elevated troponin secondary to demand ischemia in the setting of rapid A-fib. 8-second conversion pause noted with sinus bradycardia on telemetry. Permanent pacemaker implanted 01/29/2025 without complication. Toprol-XL added. Nocturnal hypoxia documented overnight suggestive of obstructive sleep apnea. Recommendations: * Start apixaban 5 mg twice daily. * Discontinue low-dose aspirin. * Continue clopidogrel 75 mg daily. * Continue Toprol-XL, Lisinopril, Imdur, and atorvastatin. * Outpatient sleep study. * Patient will require supplemental oxygen at night. * Continue high intensity statin therapy. * Smoking cessation advised. * Discussed importance of compliance with medications and clinical follow-up. Troy Castano DO, [facility] Admission and Anticipated Discharge Date Admission Date: January 27, 2025 Subjective 59-year-old seen and examined at the bedside. Pacemaker implanted 01/29/2025 without complication. AV paced on telemetry. No recurrent atrial fibrillation. Nocturnal hypoxia documented. Review of Systems Review of Systems: All systems reviewed & are unremarkable except as noted in Subjective Physical Exam Constitutional: well developed, well nourished and + obese Respiratory: no respiratory distress, no labored breathing and no retractions Auscultation: no crackles, no rales, no rhonchi and no wheezes Cardiovascular: Rate/Rhythm: regular rate, regular rhythm and + bradycardic Heart Sounds: normal S1, normal S2 and + murmur Vessels: no JVD and + radial pulses abnormal Extremities: + edema (trace ankle edema) Gastrointestinal (Abdomen): Inspection/Auscultation: normal bowel sounds; abdomen not distended Percussion/Palpation: abdomen soft; abdomen nontender, no guarding and abdomen not rigid Neurologic: CN's II-XI intact bilaterally and moves all extremities; no focal motor deficits Psychiatric: A+Ox3, euthymic affect Results & Data Vital Signs (Past 12 Hours) Vital Signs Temp Pulse Pulse Resp BP Pulse Ox Pulse Ox 01/30/25 11:34 36.5 C 65 18 134/66 97 01/30/25 08:43 01/30/25 07:31 36.5 C 60 18 157/92 H 94 01/30/25 02:55 36.4 C L 60 16 126/79 92 01/30/25 02:26 65 93 O2 Del Method O2 Del Method 01/30/25 11:34 Room Air 01/30/25 08:43 Room Air 01/30/25 07:31 Room Air 01/30/25 02:55 Room Air 01/30/25 02:26 Room Air Laboratory Results CBC 01/30/25 Range/Units 07:35 WBC 6.91 (4.8-10.8) K/ul RBC 5.56 (4.70-6.10) M/uL Hgb 16.2 (14.0-18.0) g/dl Hct 47.2 (42.0-52.0) % Plt Count 136 (130-400) K/uL Neut # (Auto) 3.99 (1.40-6.50) K/uL Lymph # (Auto) 1.88 (1.20-3.40) K/uL [place] # (Auto) 0.66 H (0.11-0.59) K/uL Eos # (Auto) 0.31 (0.00-0.50) K/uL Baso # (Auto) 0.05 (0.00-0.20) K/uL Comprehensive Metabolic Panel 01/30/25 Range/Units 07:35 Sodium 135 L (136-145) mmol/L Potassium 4.4 (3.5-5.1) mmol/L Chloride 101 (98-107) mmol/L Carbon Dioxide 31 (21-32) mmol/L BUN 11 (6-23) mg/dl Creatinine 0.90 (0.6-1.4) mg/dl Glucose 104 H (70-99(Fasting)) mg/dl Calcium 8.7 (8.6-10.3) mg/dl Intake and Output 01/29/25 01/30/25 01/30/25 22:59 06:59 14:59 Intake Total 500 / 1426.000 800 / 1426.000 Balance 500 / 1426.000 800 / 1426.000 Intake: IV 0 / 126.000 Heparin 03339 Unit/500 ml D5w 0 / 126.000 25,000 units In 500 ml @ 1,400 UNITS/HR 28 mls/hr IV .[id number] WILLY Rx#:[id number] Oral 500 / 1300 800 / 1300 Other: # Unmeasured Voids 1 1 Weight 134 kg
--- NOTE | 2025-01-30 17:36 | Hospitalist Progress Note ---
Date of Service January 30, 2025 Assessment & Plan (1) Non-ST elevation (NSTEMI) myocardial infarction: Plan: Assessment and plan below following discussion of case with ED provider and reviewing patient history/pertinent normal/abnormal diagnostic test results. NSTEMI History of multivessel CAD status post stent (2016, 2022, 2023) history of medication nonadherence continue Heparin continue ASA, Plavix, Atorvastatin EPS consult for possible Tachy 6/2 s/p pacemaker placement 01/30 stable overall Cardiology service Recommendations: * Start apixaban 5 mg twice daily. * Discontinue low-dose aspirin. * Continue clopidogrel 75 mg daily. * Continue Toprol-XL, Lisinopril, Imdur, and atorvastatin. * Outpatient sleep study. * Patient will require supplemental oxygen at night. * Continue high intensity statin therapy. New onset A-fib Episode of 8-sec Pause Tachybrady Syndrome -- s/p Permanent Pacemaker placement -- functioning appropriately Toprol XL, Eliquis started Hypertension -- BP improving continue Lisinopril, Imdur PVD status post stent hyperlipidemia, statin noncompliance history of CVA MARIVEL (not on CPAP) -- nocturnal pulse oximetry ordered, (+) desaturation <88% for 47 mins 2 L O2 via NC ordered--> will need upon discharge until patient has CPAP again at home Pre DM: A1c 6.1 Transient tingling fingers right hand --possible carpal tunnel syndrome Ongoing tobacco abuse ---Nicotine patch DVT prophylaxis Heparin Full code Disposition PT/OT evaluation lives with brother possible d/c home tomorrow Admission and Anticipated Discharge Date Admission Date: January 27, 2025 Subjective seen resting in bed, sleeping easily awakened feels fine overall no chest pain, dyspnea, palpitations, dizziness no other new symptoms Review of Systems Review of Systems: all noted and negative except for above Physical Exam Physical Exam: General- oriented x 3, not in distress, speaks in sentences with no effort or accessory muscle use Eyes- anicteric Neck- no JVD Lungs- clear breath sounds bilaterally, no rales/wheezes Heart- normal rate, regular rhythm; no murmurs pacemaker site: no hematoma, no bleeding/discharge Abdomen- normal bowel sounds, nondistended, soft, nontender Extremities- no pretibial edema, no calf tenderness Neuro- alert, oriented x 3; no gross focal neurologic deficits Skin- warm & dry Results & Data Results & Data Vital Signs (Past 12 Hours) Vital Signs Temp Pulse Resp BP Pulse Ox O2 Del Method 01/30/25 15:08 36.5 C 61 18 146/67 H 93 Room Air 01/30/25 11:34 36.5 C 65 18 134/66 97 Room Air 01/30/25 08:43 Room Air 01/30/25 07:31 36.5 C 60 18 157/92 H 94 Room Air all noted and reviewed including below
--- NOTE | 2025-01-31 06:26 | Electrocardiogram Report ---
Test Reason : Blood Pressure : */* mmHG Vent. Rate : 55 BPM Atrial Rate : 55 BPM P-R Int : 134 ms QRS Dur : 80 ms QT Int : 416 ms P-R-T Axes : 55 14 60 degrees QTcB Int : 397 ms Sinus bradycardia Nonspecific T wave abnormality Abnormal ECG When compared with ECG of 28-Jan-2025 06:07, No significant change was found Confirmed by Dean Baca ([id number]) on 01/31/2025 6:26:02 AM Referred By: REFERRED SELF Confirmed By: Dean Baca
--- NOTE | 2025-01-31 06:27 | Electrocardiogram Report ---
Test Reason : Blood Pressure : */* mmHG Vent. Rate : 62 BPM Atrial Rate : 62 BPM P-R Int : 148 ms QRS Dur : 74 ms QT Int : 394 ms P-R-T Axes : 60 4 52 degrees QTcB Int : 399 ms Atrial-paced rhythm Low voltage QRS Nonspecific T wave abnormality Abnormal ECG When compared with ECG of 29-Jan-2025 08:22, Electronic atrial pacemaker has replaced Sinus rhythm Confirmed by Dean Baca ([id number]) on 01/31/2025 6:27:02 AM Referred By: REFERRED SELF Confirmed By: Dean Baca
--- NOTE | 2025-01-31 06:27 | Electrocardiogram Report ---
Test Reason : Blood Pressure : */* mmHG Vent. Rate : 52 BPM Atrial Rate : 52 BPM P-R Int : 124 ms QRS Dur : 88 ms QT Int : 432 ms P-R-T Axes : 33 20 87 degrees QTcB Int : 401 ms Sinus bradycardia Nonspecific T wave abnormality When compared with ECG of 29-Jan-2025 02:31, No significant change was found Confirmed by Dean Baca ([id number] on 01/31/2025 6:26:40 AM Referred By: REFERRED SELF Confirmed By: Dean Baca
[2025-01-31 06:57] LABS: Basophils # (auto) 0.04 K/uL (0.00-0.20); Basophils % (auto) 0.6 %; Eosinophils # (auto) 0.31 K/uL (0.00-0.50); Eosinophils % (auto) 4.5 %; Hematocrit (blood only) 45.2 % (42.0-52.0); Hemoglobin 15.6 g/dl (14.0-18.0); Immature Granulocytes # (auto) 0.03 K/uL (0.01-0.20); Immature Granulocytes % (auto) 0.4 %; Lymphocytes # (auto) 1.98 K/uL (1.20-3.40); Lymphocytes % (auto) 28.5 %; Mean Corpuscular Hemoglobin 29.2 pg (25.0-34.0); Mean Corpuscular Hgb Conc 34.5 g/dL (32.0-36.0); Mean Corpuscular Volume 84.5 fL (80.0-100.0); Mean Platelet Volume 10.5 fL (9.4-12.4); Monocytes # (auto) 0.77 K/uL (0.11-0.59); Monocytes % (auto) 11.1 %; Neutrophils # (auto) 3.82 K/uL (1.40-6.50); Neutrophils % (auto) 54.9 %; Platelet Count 130 K/uL (130-400); RDW Coefficient of Variation 13.1 % (11.5-14.5); RDW Standard Deviation 40.1 fL (36.4-46.3); Red Blood Count 5.35 M/uL (4.70-6.10); White Blood Count 6.95 K/ul (4.8-10.8)
[2025-01-31 07:13] LABS: BUN Creatinine Ratio 15.5 (10-20); Calcium 8.6 mg/dl (8.6-10.3); Creatinine Clr Calc Pharmacy 128.1 ml/min; Magnesium 2.1 mg/dl (1.7-2.4); Potassium 4.2 mmol/L (3.5-5.1)
[2025-01-31 11:05] VITALS: BP 152/75; RESP 20; TEMP 97.9; O2SAT 93
--- NOTE | 2025-01-31 11:28 | Cardiology Progress Note ---
Date of Service January 31, 2025 Assessment & Plan (1) Atrial fibrillation with RVR: (2) Tachycardia-bradycardia syndrome: (3) Demand ischemia of myocardium: (4) Nocturnal hypoxemia due to obesity: Plan 59-year-old male admitted with paroxysmal atrial fibrillation and rapid ventr icular response. Elevated troponin secondary to demand ischemia in the setting of rapid A-fib. 8-second conversion pause noted with sinus bradycardia on telemetry. Permanent pacemaker implanted 01/29/2025 without complication. Toprol- XL added. Nocturnal hypoxia documented suggestive of obstructive sleep apnea. Recommendations: * Apixaban 5 mg twice daily added 01/30/2025. * Low-dose aspirin discontinued. * Continue clopidogrel 75 mg daily. * Continue Toprol-XL, Lisinopril, Imdur, and atorvastatin. * Outpatient sleep study. * Supplemental oxygen at night/ during sleep. * Continue high intensity statin therapy. * Smoking cessation advised. * Discussed importance of compliance with medications and clinical follow-up. * Pacemaker interrogation/wound check in 1 week postdischarge. * Cardiology follow-up in 2 to 4 weeks. Troy Castano DO, [facility] Admission and Anticipated Discharge Date Admission Date: January 27, 2025 Subjective 59-year-old male seen examined at bedside. Pacemaker implanted 01/29/2025 without complication. Medical records obtained from [facility]. LAD and circumflex stents implanted September 2023. Currently resting comfortably. Denies chest pain or shortness of breath. Nocturnal hypoxia documented. Tolerating current medications. Sinus rhythm on telemetry without recurrent atrial fibrillation. Review of Systems Review of Systems: All systems reviewed & are unremarkable except as noted in Subjective Physical Exam Constitutional: well developed, well nourished and + obese Respiratory: no respiratory distress, no labored breathing and no retractions Auscultation: no crackles, no rales, no rhonchi and no wheezes Cardiovascular: Rate/Rhythm: regular rate, regular rhythm and + bradycardic Heart Sounds: normal S1, normal S2 and + murmur Vessels: no JVD and + radial pulses abnormal Extremities: + edema (trace ankle edema) Gastrointestinal (Abdomen): Inspection/Auscultation: normal bowel sounds; abdomen not distended Percussion/Palpation: abdomen soft; abdomen nontender, no guarding and abdomen not rigid Neurologic: CN's II-XI intact bilaterally and moves all extremities; no focal motor deficits Psychiatric: A+Ox3, euthymic affect Results & Data Vital Signs (Past 12 Hours) Vital Signs Temp Pulse Resp BP Pulse Ox O2 Del Method 01/31/25 11:05 36.6 C 65 20 152/75 H 93 Room Air 01/31/25 08:00 Room Air 01/31/25 07:19 36.5 C 57 L 18 141/76 H 91 Room Air 01/31/25 02:35 36.6 C 63 18 127/73 94 Room Air Laboratory Results CBC 01/31/25 Range/Units 06:28 WBC 6.95 (4.8-10.8) K/ul RBC 5.35 (4.70-6.10) M/uL Hgb 15.6 (14.0-18.0) g/dl Hct 45.2 (42.0-52.0) % Plt Count 130 (130-400) K/uL Neut # (Auto) 3.82 (1.40-6.50) K/uL Lymph # (Auto) 1.98 (1.20-3.40) K/uL [place] # (Auto) 0.77 H (0.11-0.59) K/uL Eos # (Auto) 0.31 (0.00-0.50) K/uL Baso # (Auto) 0.04 (0.00-0.20) K/uL Comprehensive Metabolic Panel 01/31/25 Range/Units 06:28 Sodium 137 (136-145) mmol/L Potassium 4.2 (3.5-5.1) mmol/L Chloride 103 (98-107) mmol/L Carbon Dioxide 29 (21-32) mmol/L BUN 13 (6-23) mg/dl Creatinine 0.84 (0.6-1.4) mg/dl Glucose 102 H (70-99(Fasting)) mg/dl Calcium 8.6 (8.6-10.3) mg/dl Intake and Output 01/30/25 01/31/25 01/31/25 22:59 06:59 14:59 Intake Total 1000 / 1299 300 / 1300 Balance 1000 / 1299 300 / 1300 Intake: Oral 1000 / 1300 300 / 1300 Other: # Unmeasured Voids 4 Weight 134.2 kg
[2025-01-31 12:51] VITALS: PULSE 120
--- NOTE | 2025-01-31 14:27 | Discharge Summary ---
Discharge Summary Date of Service January 31, 2025 Principal Dx & Hospital Course #1 = Principal Diagnosis (1) Non-ST elevation (NSTEMI) myocardial infarction: Assessment and plan below following discussion of case with ED provider and reviewing patient history/pertinent normal/abnormal diagnostic test results. NSTEMI History of multivessel CAD status post stent (2016, 2022, 2023) history of medication nonadherence continue Heparin continue ASA, Plavix, Atorvastatin EPS consult for possible Tachy 01/29 s/p pacemaker placement 01/30 stable overall Cardiology service Recommendations: * Start apixaban 5 mg twice daily. * Discontinue low-dose aspirin. * Continue clopidogrel 75 mg daily. * Continue Toprol-XL, Lisinopril, Imdur, and atorvastatin. * Outpatient sleep study. * Patient will require supplemental oxygen at night. * Continue high intensity statin therapy. New onset A-fib Episode of 8-sec Pause Tachybrady Syndrome -- s/p Permanent Pacemaker placement -- functioning appropriately Toprol XL, Eliquis started Hypertension -- BP improving continue Lisinopril, Imdur PVD status post stent hyperlipidemia, statin noncompliance history of CVA MARIVEL (not on CPAP) -- nocturnal pulse oximetry ordered, (+) desaturation <88% for 47 mins 2 L O2 via NC ordered--> will need upon discharge until patient has CPAP again at home Pre DM: A1c 6.1 Transient tingling fingers right hand --possible carpal tunnel syndrome Ongoing tobacco abuse ---Nicotine patch DVT prophylaxis Heparin Notes For Next Care Provider 59 yo male with Medical history significant for multivessel CAD status post stent (2016, 2022, 2023), PVD status post stent, hypertension, hyperlipidemia, mild bradycardia as per records, history of CVA, MARIVEL (not on CPAP) illiteracy, ongoing tobacco abuse presented for syncope. Found to be bradycardic, cardiology consulted, patient diagnosed with tachybrady syndrome, pacemaker placed. Nocturnal pulse ox ordered, home oxygen ordered for at nighttime. Cardiac medications optimized. On 01/31/2025 patient requesting to leave and medically stable for discharge home. Medication Changes From Visit -see below Admission HPI Per Admitting Provider History obtained from patient and records. Medical history significant for multivessel CAD status post stent (2016, 2022, 2023), PVD status post stent, hypertension, hyperlipidemia, mild bradycardia as per records, history of CVA, MARIVEL (not on CPAP) illiteracy, ongoing tobacco abuse. Last [facility] confinement October 2022 for NSTEMI status post RCA and LAD stent placement. Patient later moved to [place]. Patient confined at [facility] in [place], [place] last April 2024 for ACS status post stent placement. Patient later unable to take home medications the last 6 months due to insurance issues. Patient relocated back to [place], [place] from [place] few days ago. Patient had achy left-sided chest pain with radiation to the arm a few hours ago. Episode similar to past episode. Some SOB with chronic smoker's cough symptoms. Patient later noted palpitations. Transient tingling sensation on middle fingers of right hand without headache or neck pain symptoms which has happened before. Patient noted to be in rapid A-fib upon arrival at the ER. SBP 170s, Heart rate 1 20-1 40s. Discomfort relieved by nitroglycerin administration at the ER. IV Cardizem and heparin infusions initiated at the ER. Medical History as above Surgical History : Vascular procedures, appendectomy Family History : Heart disease, DM, DVT Personal/Social history : 1/2 pack daily, rare EtOH intake, currently unemployed Discharge Exam Gen: A&O 3 NAD, large body habitus HEENT: NCAT, EOMI, not icteric. External ears normal. No rhinorrhea. Moist mucous membranes. Neck: Supple, full range of motion, no observable masses, No meningeal sign. Lungs: No Respiratory distress. CV: RRR, no edema. Abdomen: Soft, nondistended, No rebound tenderness. MSK: No joint swelling, no redness. Skin: No rashes, petechiae, lesions. Normal color per patient. Neuro: Normal Gait, Grossly intact. Psych: Appropriate for situation. Updated Medication List Medication Instructions Recorded Confirmed Type clopidogrel 75 mg tablet 75 mg PO HS 03/03/22 01/27/25 History nitroglycerin 0.4 mg sublingual 0.4 mg sublingual DIRECTED PRN 03/03/22 01/27/25 History tablet (Nitrostat) Chest Pain potassium chloride 20 mEq 20 meq PO BID 03/03/22 01/27/25 History tablet,extended release(part/cryst) furosemide 40 mg tablet (Lasix) 40 mg PO HS 10/29/22 01/27/25 History atorvastatin 40 mg tablet 80 mg PO HS 03/07/23 01/27/25 History sumatriptan succinate 25 mg tablet 25 mg PO DIRECTED PRN Migraine 03/07/23 01/27/25 History Headache albuterol sulfate 90 mcg/actuation 2 puff inhalation Q4 PRN Shortness 03/14/23 01/27/25 History aerosol inhaler Of Breath Or Wheezing tiotropium bromide 2.5 2 puff inhalation DAILY 03/14/23 01/27/25 History mcg/actuation mist for inhalation (Spiriva Respimat) apixaban 5 mg tablet (Eliquis) 5 mg PO BID #30 tabs 01/31/25 Rx isosorbide mononitrate 30 mg 30 mg PO QAM #30 tabs 01/31/25 Rx tablet,extended release 24 hr lisinopril 10 mg tablet 10 mg PO QAM #30 tabs 01/31/25 Rx metoprolol succinate 25 mg 25 mg PO BID #30 tabs 01/31/25 Rx tablet,extended release 24 hr Hospital Stay Data Consultations 01/27/25 22:46 ED Decision to Admit Stat 01/28/25 01:40 Consult Cardiology Routine 01/28/25 04:58 HIM [Consult Health Information Management] Routine Procedures Performed Operation Date: 01/29/25 14:00 Actual Procedures p Pacer with A/V Leads (Dual) - Valeria Sutherland DO s Venogram, Unilateral - Valeria Sutherland DO Diagnostic Imagining Performed 01/27/25 21:09 CT angio chest PE protocol Stat 01/29/25 11:02 CL Cath Imgs for PACS use only Stat 01/29/25 12:30 EP Lab Images for PACS ONCE Pending Results Patient Have Any Pending Studies at Discharge: No Discharge Instructions Given to Patient (Per Discharging Provider) 1. Please wear oxygen at home and follow up with with sleep medicine outpatient. 2. Please follow up with cardiology, sleep medicine, PCP. Total Time Total Time Spent Total Time Spent (In Minutes): I spent a total of 35 minutes in direct patient care, including [id number] time with the patient and/or family, reviewing medical records, ordering and reviewing diagnostic tests, and coordinating care with other healthcare providers. This time includes: history taking, physical examination, medical decision making, counseling, ECG interpretation, imaging interpretation, lab interpretation, orders, and education, excluding time spent in the performance of separately billed services.
--- NOTE | 2025-02-14 10:16 | Operative Report ---
Post Operative Report DATE OF PROCEDURE: 01/29/2025 PREOPERATIVE DIAGNOSES: TBS POSTOPERATIVE DIAGNOSIS: Same PROCEDURE: A dual-chamber rate responsive permanent pacemaker, along with a peripheral venogram under fluoroscopic guidance. SURGEON: Valeria Sutherland DO ASSISTANTS: None. ANESTHESIA: Monitored conscious sedation administered under my supervision by Jus Boone. Start time 15:22, end time 17:07, a total of 8 mg of Versed and 250 mcg of fentanyl. INTRAVENOUS FLUIDS: 0 mL. CONTRAST: 22 mL. ANTIBIOTICS: 3 grams of Ancef. ADDITIONAL MEDICATIONS: 1None BLOOD LOSS: 50 mL. URINE OUTPUT: Not applicable. SPECIMENS: None. FINDINGS: See below. DRAINS: None. COMPLICATIONS: None. CONDITION: Stable. INDICATIONS: This is a 59-year-old gentleman who has a past medical history Multivessel coronary artery disease Status post PCI of the left circumflex while in [place], details unknown, Hospitalization in October 2022 with NSTEMI, status post November 12, 2022 PCI of the mid RCA with a single drug-eluting stent (3.5 x 26 mm Fracisco), November 13, 2022 staged PCI of the mid LAD with single drug-eluting stent (3.0 x 22 mm Fracisco), residual ostial stenosis of jailed diagonal but DALIA-3 flow, HTN, HLD, chronic tobacco use, PAD60% proximal right internal carotid artery stenosis via February 2023 CTA at [facility], ? Lower extremity stenting, History of CVA, old lacunar infarct, [place] 2018, Obesity,Obstructive sleep apnea pending initiation of CPAP therapy. Pt was admitted to [facility] due to symptomatic AF with RVR then had a significantly long conversion pause; he was recommended a pacemaker prior to hospital discharge given his need for more medications for the AF with RVR and the profound bradycardia in SR. CONSENT: Consent was obtained prior to the patient going into the electrophysiology lab. The patient was informed of the risks, benefits, and alternatives to the procedure. Risks include, but not limited to, sudden cardiac , cardiac arrhythmias, cerebrovascular accident, myocardial infarction, injury to his blood vessels, chamber of the heart and lung, bleeding and infection. The patient understood these risks and agreed to the procedure as planned. Informed consent was obtained. DESCRIPTION OF PROCEDURE: The patient was brought into electrophysiology lab in a fasting state. He was connected to continuous cardiac monitoring. A timeout was performed to ensure the patient's identity and procedure correctly. He was prepped and draped in the left infraclavicular space in normal surgical standard fashion. Monitored conscious sedation was given throughout the procedure for the patient's comfort level. Marlow precautions were maintained throughout the procedure. Prophylactic antibiotics were given prior to incision. A 20 mL of 1% lidocaine and bupivacaine mixture were given in the left deltopectoral groove. An incision was made in the left deltopectoral groove. Blunt dissection was performed down to the pectoralis muscle. Then, using blunt dissection over the pectoralis muscle within the pectoral fascia, a pacemaker pocket was created. Then, a peripheral venogram was performed to identify the axillary vein. Venous axillary access was obtained through a needlestick without any problems. A guidewire was inserted without any resistance. A 6- Samoan sheath was inserted over the guidewire without any resistance. Dilator was removed and a second guidewire was inserted through the sheath to allow for retained venous access. Then a 9 Samoan sheath was inserted over one of the guidewires. The guidewire and dilator were removed. Then, the CPS Battery [employer]er Plastic 3D large Extra long sheath was inserted through the 9-Samoan sheath over a Glidewire into the right ventricle. The Glidewire and dilator were removed. Then, the left bundle lead was advanced through the sheath and intracardiac electrogram His bundle recordings were performed when the camera was in CHACON 10. Once I had an idea where the His bundle was-as I could not see a clear HIS. I then moved the camera to CHACON 30 and marked where I estimated the His bundle was on my fluoroscopy screen. I came down about 2 cm from this in a line that would extend out to the apex and then started coming on pacing. Once I found an area where I had a nice W formed pace complex in my lead V1, I then moved the camera to STANLEY 30. Then the helix was extended into the septum. Then the helix locking tool was placed. Then the lead was screwed further into the septum while pacing by giving slow clockwise turns. The paced complex changed to a nice R' in V1 and the pacing stim to peak QRS in V6 was good. I then gave contrast through the sheath to see how far the lead was into the septum and then I slit the CPS Battery As[employer]er [employer] 3D large sheath under fluoroscopic guidance and left the 9-Samoan sheath in while I positioned the right atrial lead. A 6-Samoan sheath was inserted over the retained guidewire, the guidewire and dilator removed. The right atrial lead was then advanced into right atrium and positioned into right atrial appendage under fluoroscopic guidance. There was adequate pacing and sensing thresholds and no diaphragmatic stimulation with high output pacing. The 6-Samoan sheath was peeled away and the lead was fixated to the pectoralis muscle using 0 silk suture. The 9-Samoan sheath around the left bundle lead was peeled away and the lead was fixated to pectoralis muscle using 0 silk suture. The pocket was flushed with copious amounts of vancomycin and saline wash and inspected for hemostasis. The leads were then attached to the pulse generator making sure the pins were in appropriate position, passed set screws, and set screws were all tightened. Pulse generator was then placed in the pocket, making sure the leads were lying flat beneath the device. The incision was closed in a 3-layer fashion using 2-0 Vicryl interrupted suture, followed by 3-0 Vicryl interrupted suture, followed by 4-0 Monocryl running stitch. Then a primaseal dressing was placed EQUIPMENT: 1. Pulse generator is a iiko MRI Model Number [id number] SN: [id number] 2. Right atrial lead, Roomixer UlitPace [id number] SN: [id number] 3. Left bundle lead, Roomixer UltiPace [id number] SN: [id number] INTRAPROCEDURAL FINDINGS: 1. Right atrial lead, P waves 4 millivolts, impedance 730 ohms, threshold 0.4 volts at 0.5 milliseconds. 2. Left bundle lead, R waves 7.0 millivolts, impedance 805 ohms, threshold 1.3 volts at 0.5 milliseconds. FINAL MEASUREMENTS THROUGH THE DEVICE: 1. Right atrial lead, P waves 5millivolts, impedance 1050 ohms, threshold 0.5 volt at 0.4 milliseconds. 2. Left bundle lead, R waves 12 millivolts, impedance 830 ohms, threshold 0.55 volts at 0.4 milliseconds. FINAL PARAMETERS: DDDR 60/140, right atrial amplitude 3.5 volts, pulse width 0.4 milliseconds, sensitivity 0.3 millivolts. Left bundle lead amplitude 3.5 volts, pulse width 0.4 milliseconds, sensitivity 2 millivolts. IMPRESSION: Successful dual chamber rate responsive permanent pacemaker under fluoroscopic guidance along with peripheral venogram all under fluoroscopic guidance secondary to TBS PLAN: Monitor the patient post-procedure. A 12-lead ECG, chest x-ray. He is not to lift the left elbow or left shoulder for 1 month. He cannot lift more than 10 pounds with the left arm for 2 weeks. He is to keep the dressing on and dry until his wound check in 10 days.
--- NOTE | 2025-02-15 13:01 | Coding Query ---
CODING QUERY To promote full compliance with coding requirements relating to patient care, provider participation is requested in all cases of commercial instructor supervisor uncertainty. Please assist us with the question(s) below: Coding Question(s): The diagnosis of NSTEMI is present throughout the chart, however there is also an addendum in the discharge summary that notes "Demand Ischemia -in setting of tachybrady syndrome s/p pacemaker placement." Can you please specify the most likely cause of the patient's presentation below? NSTEMI, POA ( ) Demand ischemia without NSTEMI, POA ( ) Other, please specify ( ) . Physician's Response(s): albert collins i did not see the patient, thank you Thank you Neeta Brown Principal Diagnosis: "that condition established after study, to be chiefly responsible for occasioning the admission of the patient to the hospital for care." Co-Existing Principal Diagnosis: "when two or more diagnoses equally meet the criteria for principal diagnosis as determined by the circumstances of admission, diagnostic work up, and/or therapy provided, and the Alphabetic Index, Tabular List, or another coding guideline does not provide sequencing direction, any one of the diagnoses may be sequenced first." "When the physician has documented what appears to be a current diagnosis in the body of the record, but has not included the diagnosis in the final diagnostic statement, the physician should be asked whether the diagnosis should be added." (Source [facility] 2 QTR90. p3-4) FELA
--- NOTE | 2025-02-16 05:24 | Coding Query ---
CODING QUERY To promote full compliance with coding requirements relating to patient care, provider participation is requested in all cases of him coder uncertainty. Please assist us with the question(s) below: Coding Question(s): The diagnosis of NSTEMI is present throughout the chart, however there is also an addendum in the discharge summary that notes "Demand Ischemia -in setting of tachybrady syndrome s/p pacemaker placement." Can you please specify the most likely cause of the patient's presentation below? NSTEMI, POA ( ) Demand ischemia without NSTEMI, POA (X ) As per Cardiology service notes Other, please specify ( ) . Physician's Response(s): Thank you Neeta Brown Principal Diagnosis: "that condition established after study, to be chiefly responsible for occasioning the admission of the patient to the hospital for care." Co-Existing Principal Diagnosis: "when two or more diagnoses equally meet the criteria for principal diagnosis as determined by the circumstances of admission, diagnostic work up, and/or therapy provided, and the Alphabetic Index, Tabular List, or another coding guideline does not provide sequencing direction, any one of the diagnoses may be sequenced first." "When the physician has documented what appears to be a current diagnosis in the body of the record, but has not included the diagnosis in the final diagnostic statement, the physician should be asked whether the diagnosis should be added." (Source [facility] 2 QTR90. p3-4) FELA
== END 2025-01-31 13:59 | disposition home or self-care (01) | DRG 243 ==
LOC: ED 20:57 → 2S 23:06 → SUATTDRO 23:06 → 2S 01-28 00:32